=== PATIENT | female | born 2000 | race Caucasian/White ===

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

== ENCOUNTER 2020-01-11 09:53 | Emergency (ER) | payer OTHER, SELFPAY ==
--- OUTSIDE RECORDS SUMMARY | 2020-01-11 10:20 | XMS REPORT | Continuity of Care Document ---
:2000 Author Organization [facility] t Address [address] [place] [address] [address]. [address] [place] [address] Care Team Providers Name Role Phone Lavern Hammer Attending Clinician José THAYER Attending Clinician Doctor Unassigned, Name Attending Clinician Unavailable Gayle Rose DO Attending Clinician Thom THAYERMarch Attending Clinician Denise Attending Clinician Unavailable Gayle Goff Attending Clinician Unavailable Problems This patient has no known problems. Allergies, Adverse Reactions, Alerts This patient has no known allergies or adverse reactions. Medications This patient has no known medications. Procedures This patient has no known procedures. Encounters Start End Encounter Admission Attending Care Care Encounter Source Date/Time Date/Time Type Type Clinicians Facility Department ID 2020-01-10 2020-01-10 Telephone LUNA Sales [id number] 00:00:00 00:00:00 Elio Pukcett PACKERHEAD MACHINE OPERATOR [id number] [facility] 4.2.7.2.686 MATERNAL [id number] & CHILD [address] [place] [address] 2020-01-04 2020-01-04 Emergency LUNA Kumar [id number] 14:01:57 17:30:00 Raghu [place] [id number] [place] 4.2.7.2.686 [place] [id number] 2020-01-02 2020-01-02 Initial LUNA Sales [id number] 08:13:49 09:15:57 Rosstaceynda R PACKERHEAD MACHINE OPERATOR [id number] Visit REGIONAL 4.2.7.2.686 MATERNAL [id number] & CHILD 107 [facility] 2020-01-02 2020-01-02 Orders Doctor KEYA [id number] 00:00:00 00:00:00 Only Unassigned, KARISSA [id number] [place] [facility] 4.2.7.2.686 [id number] 2020-01-01 2020-01-01 Telephone [facility] [id number] 00:00:00 00:00:00 Rosstaceynda R PACKERHEAD MACHINE OPERATOR [id number] [facility] 4.2.7.2.686 MATERNAL [id number] & CHILD 107 [facility] 2019-12-29 2019-12-29 Emergency [facility] [id number] 10:37:22 12:18:00 Jazmin Callahan 350.1.13.10 [place] 4.2.7.2.686 [place] [id number] 2019-12-29 2019-12-29 Orders Doctor KEYA [id number] 00:00:00 00:00:00 Only Unassigned, KARISSA 350.1.13.10 [place] [address].686 [id number] 009 2019-11-06 2019-11-06 Telemedici [facility] [id number] 07:47:52 08:17:52 ne Visit [facility] [id number] [facility] 4.2.7.2.686 [place] AT [id number] BRANDI Linda2 [facility] 2019-09-04 2019-09-04 Orders Doctor KEYA [id number] 00:00:00 00:00:00 Only Unassigned, KARISSA 350.1.13.10 [place] [facility] 4.2.7.2.686 [id number] Results Test Description Test Time Test Comments Results Result Comments Source Urinalysis 2018-03-17 12:37:00 Test Item Value Reference Range Interpretation Comme nts Urinalysis (test code = UACLR) Yellow Yellow Urinalysis (test code = UACLY) Slightly Cloudy Clear Urinalysis (test code = SPGR) 1.015 1.005-1.030 N Urinalysis (test code = DAFNE) 8.5 5.0-9.0 N Urinalysis (test code = UALEU) Negative Negative Urinalysis (test code = UANIT) Negative Negative Urinalysis (test code = PROUADIP) Negative mg/dL Neg-Trace Urinalysis (test code = GLUCU) Negative mg/dL Negative Urinalysis (test code = KETU) Negative mg/dL Negative Urinalysis (test code = UAUROB) 0.2 mg/dL 0.2-1.0 Urinalysis (test code = UABIL) Negative Negative Urinalysis (test code = UABLD) Negative Negative Urine Source: Urine Clean CatchCulture, Strep Group A [id number] 11:02:00 Test Item Value Reference Range Interpretation Comments Culture, Strep Group A Rflx (test STRPCULT code = STRPACULT) Culture, Strep Group A Rflx (test N code = STRPACULT1) Strep Group A [id number] 00:11:00 Test Item Value Reference Range Interpretation Comments Strep Group A Screen (test code = STRPANEG1 STRP) Strep Group A Screen (test code = N STRP1) Strep Group A Screen (test code = STRPTH STRP1)
--- OUTSIDE RECORDS SUMMARY | 2020-01-11 10:20 | XMS REPORT | Summary of Care ---
:2000 Author Organization [facility] - Health Address [address] [place] [address] Care Team Providers Name Role Phone Fernanda Solorio Primary Care Provider Encounter Details Date Type Department Care Team Description 12/29/2019 Orders Only [facility] Doctor Unassigned, No 301 [facility] vard Name [place] [id number] [place] [phone] Allergies No Known Allergiesdocumented as of this encounter (statuses as of 12/29/2019) Medications No known medicationsdocumented as of this encounter (statuses as of 12/29/2019) Active Problems Not on filedocumented as of this encounter (statuses as of 12/29/2019) Social History Tobacco Use Types Packs/Day Years Used Date Never Assessed Sex Assigned at Date Recorded Not on file Job Start Date Occupation Industry Not on file Not on file Not on file Travel History Travel Start Travel End No recent travel history available. documented as of this encounter Last Filed Vital Signs Not on filedocumented in this encounter Plan of Treatment Health Maintenance Due Date Last Done Comments VARICELLA VACCINES (1 of 2 - 2-dose 2001 childhood series) MENINGOCOCCAL B VACCINES (1 of 2 - 2010 Risk Bexsero 2-dose series) DTaP,Tdap,and Td Vaccines (1 - 2011 Tdap) HPV VACCINES (1 - Female 2-dose 2011 series) WELL CARE VISIT: 12-21 YEARS 2012 (yearly) CHLAMYDIA SCREENING 2016 INFLUENZA VACCINE (#1) 2019 MENINGOCOCCAL VACCINE Aged Out No longer eligible based on patient's age to complete this topic PNEUMOCOCCAL 0-64 YEARS COMBINED Aged Out No longer eligible based on SERIES patient's age to complete this topic documented as of this encounter Procedures Procedure Name Priority Date/Time Associated Diagnosis Comme nts CONSENT/REFUSAL FOR Routine 12/29/2019 10:30 AM CDT DIAGNOSIS AND TREATMENT documented in this encounter Results Not on filedocumented in this encounter Insurance Payer Benefit Plan / Subscriber ID Effective Dates Phone Addre ss Type Group [facility] [id number] 2019-[facility] documented as of this encounter
--- OUTSIDE RECORDS SUMMARY | 2020-01-11 10:20 | XMS REPORT | Summary of Care ---
:2000 Author Organization [facility] Address [address] [place] [address] Care Team Providers Name Role Phone Fernanda Solorio Primary Care Provider Reason for Referral (Routine) Status Reason Specialty Diagnoses / Referred By Referred To Procedures Contact Contact New Request OG-OBSTETRICS & Diagnoses Vomiting, intractability of vomiting not specified, presence of nausea not specified, unspecified vomiting type Jazmin Rose GYNECOLOGY Procedures Discharge Follow-Up: Specialty Service OG-OBSTETRICS & GYNECOLOGY; 1 Week J, DO [address] [place] [address] Reason for Visit Reason Comments VOMITING DURING Auth/Cert Status Reason Specialty Diagnoses / Referred By Referred To Procedures Contact Contact Emergency Medicine Adc Em ergency Dept [address] [facility] [place] [address] Fax: Encounter Details Date Type Department Care Team Description 12/29/2019 Emergency ADC-Emergency Jazmin Rose, Vomitin g, intractability Department DO of vomiting not [address] [facility] [address] [place] [address] specified, presence of [place] [id number] [place] [address] nausea not specified, unspecified vomiting type (Jayne shima Dx) Allergies No Known Allergiesdocumented as of this encounter (statuses as of 12/29/2019) Medications Medication Sig Dispensed Refills Start Date End Date Status ondansetron (ZOFRAN Take 1 tablet by 14 tablet 0 12/29/2019 Active ODT) 4 mg mouth every 8 disintegrating (eight) hours as tabletIndications: needed for Nausea Vomiting, and Vomiting intractability of (N/V). vomiting not specified, presence of nausea not specified, unspecified vomiting type documented as of this encounter (statuses as of 12/29/2019) Active Problems No known active problemsdocumented as of this encounter (statuses as of 12/29/2019) Social History Tobacco Use Types Packs/Day Years Used Date Never Assessed Sex Assigned at Date Recorded Not on file Job Start Date Occupation Industry Not on file Not on file Not on file Travel History Travel Start Travel End No recent travel history available. COVID-19 Exposure Response Date Recorded In the last month, have you been in contact with No / Unsure 12/29/2019 10:30 AM CDT someone who was confirmed or suspected to have Coronavirus / COVID-19? documented as of this encounter Last Filed Vital Signs Vital Sign Reading Time Taken Comments Blood Pressure 115/73 12/29/2019 10:36 AM CDT Pulse 80 12/29/2019 10:36 AM CDT Temperature 37.2 C (99 F) 12/29/2019 10:36 AM CDT Respiratory Rate 18 12/29/2019 10:36 AM CDT Oxygen Saturation 99% 12/29/2019 10:36 AM CDT Inhaled Oxygen Concentration - - Weight 62.1 kg (137 lb) 12/29/2019 10:36 AM CDT Height - - Body Mass Index - - documented in this encounter Discharge Instructions Jazmin Roberts DO - 12/29/2019DIAGNOSIS 1. Vomiting 2. NO LIFE-THREATENING FINDINGS ON TODAY'S EXAM. PROCEDURES IN THE ER TODAY: Urine test MEDICATIONS ADMINISTERED IN THE ER TODAY: IV fluids Zofran YOUR PRESCRIPTIONS AND OLAN-DPH-HKORJDQ MEDICATION RECOMMENDATIONS: Zofran by mouth every 8 hours as needed for nausea/vomiting. Please take vitamins daily. SPECIAL CARE INSTRUCTIONS: None FOLLOW-UP RECOMMENDATIONS: RECOMMEND FOLLOW-UP WITH A PRIMARY CARE PROVIDER OR SPECIALIST IN 2-5 DAYS, ESPECIALLY IF NO IMPROVEMENT IN SYMPTOMS. TO FOLLOW-UP WITHIN THE [facility] HEALTHCARE SYSTEM, TRY THESE OPTIONS (CLINIC APPOINTMENTS AVAILABLE ON [id number] BASIS): 1. SCHEDULE AN APPOINTMENT ONLINE AT WWW[facility] 2. OR CALL THE [facility] ACCESS CENTER AT OR 3. OR CALL YOUR [facility] PHYSICIAN'S OFFICE DIRECTLY IF YOU ARE ALREADY AN ESTABLISHED [facility] PATIENT. OR, YOU MAY FOLLOW-UP WITH A PROVIDER OF YOUR CHOICE, SUCH : 1. A PHYSICIAN OF YOUR CHOICE 2. [facility], . LOCATIONS IN [facility] 3. [facility], [address] [place], [place]; [phone] RETURN TO ER FOR WORSENING OF SYMPTOMS. AttachmentsThe following attachments cannot be sent through Care Everywhere. Vomiting (Adult) (Nicaraguan), New Dx (Nicaraguan)Diet, Edmunds (Adult) (Nicaraguan)documented in this encounter Plan of Treatment Health Maintenance Due Date Last Done Comments VARICELLA VACCINES (1 of 2 - 2-dose 2001 childhood series) MENINGOCOCCAL B VACCINES (1 of 2 - 2010 Risk Bexsero 2-dose series) DTaP,Tdap,and Td Vaccines (1 - 2011 Tdap) HPV VACCINES (1 - Female 2-dose 2011 series) WELL CARE VISIT: 12-21 YEARS 2012 (yearly) CHLAMYDIA SCREENING 2016 INFLUENZA VACCINE (Season Ended) 2020 MENINGOCOCCAL VACCINE Aged Out No longer eligible based on patient's age to complete this topic PNEUMOCOCCAL 0-64 YEARS COMBINED Aged Out No longer eligible based on SERIES patient's age to complete this topic documented as of this encounter Procedures Procedure Name Priority Date/Time Associated Diagnosis Comme nts POCT TEST BECKY 12/29/2019 10:49 Vomiting, Resu lts for this AM CDT intractability of procedure are in vomiting not the results specified, presence of secti on. nausea not specified, unspecified vomiting type URINALYSIS STAT 12/29/2019 10:48 Vomiting, Results for this AM CDT intractability of procedure are in vomiting not the results specified, presence of secti on. nausea not specified, unspecified vomiting type NOTICE OF PRIVACY Routine 12/29/2019 10:31 PRACTICES AM CDT documented in this encounter Results POCT Test, Urine (12/29/2019 10:49 AM CDT) Pathologist Sig nature POCT PREG positive On board controls acceptable present with C Line POCT PREG LOT # [id number] POCT PREG TEST DATE 03-07-2021 Specimen Urine - URINE, CLEAN CATCH Urinalysis (12/29/2019 10:48 AM CDT) Pathologist Sig nature APPEARANCE Cloudy (A) Clear [facility] COLOR Ramandeep (A) Yellow [facility] PH 7.0 4.8 - 8.0 [facility] SP GRAVITY 1.020 1.003 - 1.030 [facility] GLU U QUAL Normal Normal [facility] BLOOD Negative Negative [facility] KETONES 5 mg/dL (A) Negative [facility] PROTEIN Negative Negative [facility] UROBILIN Normal Normal [facility] BILIRUBIN Negative Negative [facility] NITRITE Negative Negative [facility] LEUK AMANDA Negative Negative [facility] RBC/HPF 2 0 - 3 HPF [facility] WBC/HPF <1 0 - 5 HPF [facility] BACTERIA Few (A) Negative [facility] MUCOUS Marked (A) Negative LPF [facility] AMORPHOUS Moderate (A) Rare HPF [facility] SQ EPITH 3 HPF [facility] Specimen Urine - URINE, CLEAN CATCH Performing Organization Address City/State/Zipcode Phone Number [facility] CLIA: [id number], [address] [place], [place] [address] documented in this encounter Visit Diagnoses Diagnosis Vomiting, intractability of vomiting not specified, presence of nausea not specified, unspecified vomiting type - Primary documented in this encounter Administered Medications Medication Order MAR Action Action Date Dose Rate Site NaCl 0.9% (NS) bolus New Bag 12/29/2019 11:10 AM CDT 1,000 mL 99 9 mL/hr infusion 1,000 mL at 999 mL/hr, 1,000 mL, IV Infusion, ONCE, 1 dose, 12/29/19 at 1100, BECKY ondansetron (ZOFRAN (PF)) injection 4 mg Given 12/29/2019 11:09 AM CDT 4 mg 4 mg, Slow IV Push, ONCE, 1 dose, 12/29/19 at 1200, BECKY documented in this encounter Insurance Payer Benefit Plan / Subscriber ID Effective Dates Phone Addre ss Type Group [facility] [id number] 2019-Present [facility] documented as of this encounter
--- OUTSIDE RECORDS SUMMARY | 2020-01-11 10:20 | XMS REPORT | Summary of Care ---
:2000 Author Organization [facility] Address [address] [place] [address] Care Team Providers Name Role Phone Fernanda Solorio Primary Care Provider Reason for Visit Reason Comments Error (BECKY) Status Reason Specialty Diagnoses / Procedures Referred By R eferred To Contact Contact Closed Gastroenterology Diagnoses SMAS (superior mesenteric artery syndrome) Diya, Procedures CONSULT/REFERRAL GASTROENTEROLOGY MD Rae [address] [place] [phone] Encounter Details Date Type Department Care Team Description 11/06/2019 Telemedicine Visit [facility] Kana Tony, DO [address] [facility] [id number] [place] [address] ERRONEOUS GASTROENTEROLOGY Angely Tomas MD [address] [place] [address]. [place] [address] ENCOUNTER--DISREG -[facility] (Primary Dx) [address] [facility] [address] [place] [phone] Allergies No Known Allergiesdocumented as of this encounter (statuses as of 11/06/2019) Medications No known medicationsdocumented as of this encounter (statuses as of 11/06/2019) Active Problems Not on filedocumented as of this encounter (statuses as of 11/06/2019) Social History Tobacco Use Types Packs/Day Years Used Date Never Assessed Sex Assigned at Date Recorded Not on file Job Start Date Occupation Industry Not on file Not on file Not on file Travel History Travel Start Travel End No recent travel history available. documented as of this encounter Last Filed Vital Signs Not on filedocumented in this encounter Progress Notes Angely Tomas MD - 11/06/2019 11:00 AM CDTNo answer after multiple attempts to reach patient via telephone for GI telehealth visit. No voicemail set up to leave a message. Telehealth visit will need to be rescheduled. Angely Tomas MD 11/06/2019 11:02 AM documented in this encounter Plan of Treatment Health [...] this topic documented as of this encounter Results Not on filedocumented in this encounter Visit Diagnoses Diagnosis ERRONEOUS ENCOUNTER--DISREGARD - Primary documented in this encounter Insurance Payer Benefit Plan / Subscriber ID Effective Dates Phone Addre ss Type Group [facility] [id number] 2019-Present [facility] documented as of this encounter
--- OUTSIDE RECORDS SUMMARY | 2020-01-11 10:20 | XMS REPORT | Summary of Care ---
:2000 Author Organization [facility] - Health Address [address] [place] [address] Care Team Providers Name Role Phone CelestebrandyFernanda Jabari Primary Care Provider Encounter Details Date Type Department Care Team Description 01/02/2020 Orders Only [facility] Doctor Unassigned, No 301 [facility] Name [place] [phone] [place] [address] Allergies No Known Allergiesdocumented as of this encounter (statuses as of 01/02/2020) Medications Medication Sig Dispensed Refills Start Date End Date Status ondansetron (ZOFRAN Take 1 tablet by 14 tablet 0 12/29/2019 Active ODT) 4 mg mouth every 8 disintegrating (eight) hours as tabletIndications: needed for Nausea Vomiting, and Vomiting intractability of (N/V). vomiting not specified, presence of nausea not specified, unspecified vomiting type documented as of this encounter (statuses as of 01/02/2020) Active Problems No known active problemsdocumented as of this encounter (statuses as of 01/02/2020) Social History Tobacco Use Types Packs/Day Years [...] Name Priority Date/Time Associated Diagnosis Comme nts ASSIGNMENT OF BENEFITS Routine 01/02/2020 8:03 AM CDT documented in this encounter Results Not on filedocumented in this encounter Insurance Payer Benefit Plan Subscriber ID Effective Phone Address Typ e / Group Dates [facility] [id number] 2019-[facility] [place] [id number] Effective for [phone] [facility] all dates [address] [place], [place] [address] documented as of this encounter
--- OUTSIDE RECORDS SUMMARY | 2020-01-11 10:21 | XMS REPORT | Summary of Care ---
:2000 Author Organization [facility] Address [address] [place] [address] Care Team Providers Name Role Phone Fernanda Solorio Primary Care Provider Reason for Referral (Routine) Status Reason Specialty Diagnoses / Referred By Referred To Procedures Contact Contact New Request Maternal Diagnoses Superior mesenteric artery syndrome Elio Sales Medicine Procedures CONSULT/REFERRAL MATERNAL MEDICINE FACULTY/FELLOW Preferred location: KATHERINE Bishop [address] [place] [address] Reason for Visit Reason Comments Initial Visit Encounter Details Date Type Department Care Team Description [facility] upervision of high risk , antepartum (Primary Dx); Visit KATHERINE Bishop High risk teen in first trimes ter; [address] [facility] [address]ravida in first trim ter; [place], [place] Superior mesenteric artery syndrome; [address] [place], [place] Abdominal pain, left lower q uadrant; [phone] Nausea and vomiting in prior t o 22 weeks gestation [phone] Allergies No Known Allergiesdocumented as of this [...] of nausea not specified, unspecified vomiting type vit Take by mouth. 0 A ctive calc,iron,folic ( #2 ORAL) documented as of this encounter (statuses as of 01/02/2020) Active Problems Problem Noted Date Supervision of high risk , antepartum 020 High risk teen in first trimester 01/02/2020 Primigravida in first trimester 01/02/2020 Nausea and vomiting in prior to 22 weeks ges tation 01/02/2020 Superior mesenteric artery syndrome 01/02/2020 Abdominal pain, left lower quadrant 01/02/2020 Estimated Date of Delivery Comments Yes 09/18/2020 Based on last menstr ual period of 12/13/2019 (Within Days) documented as of this encounter (statuses as of 01/02/2020) Immunizations Name Administration Dates Next Due DTP 09/29/2004, 10/29/2003, 04/16/2003, 2000 HIB 3 Dose Schedule 04/16/2003, 2000 HPV 01/25/2019, 12/06/2012 Hep B, Adol or Pedi Dosage 10/29/2003, 04/16/2003, 1, 2000 MMR 09/29/2004, 04/16/2003 Meningococcal B, OMV 01/25/2019 Meningococcal Vaccine 01/25/2019, 12/06/2012 Polio (IPV/OPV) 09/29/2004, 10/29/2003, 04/16/2003, 2000 TDAP (ADACEL) VACCINE 12/06/2012 Varicella (varivax)(chicken pox) 12/06/2012, 04/16/2003 documented as of this encounter Social History Tobacco Use Types Packs/Day Years Used Date Never Smoker Smokeless Tobacco: Never Used Alcohol Use Drinks/Week oz/Week Comments Never Alcohol Habits Answer Date Recorded How often do you have a drink containing alcohol? Never 01/02/2020 How many drinks containing alcohol do you have on a typical Not asked day when you are drinking? How often do you have six or more drinks on one occasion? No t asked Estimated Date of Delivery Comments Yes 09/18/2020 Based on last menstr ual period of 12/13/2019 (Within Days) Sex Assigned at Date Recorded Not on [...] Sign Reading Time Taken Comments Blood Pressure 123/81 01/02/2020 8:26 AM CDT Pulse 75 01/02/2020 8:26 AM CDT Temperature 36.6 C (97.9 F) 01/02/2020 8:26 AM CDT Respiratory Rate 16 01/02/2020 8:26 AM CDT Oxygen Saturation - - Inhaled Oxygen Concentration - - Weight 54.4 kg (120 lb) 01/02/2020 8:26 AM CDT Height 165.1 cm (5' 5") 01/02/2020 8:26 AM CDT Body Mass Index 19.97 01/02/2020 8:26 AM CDT documented in this encounter Progress Notes Elio Sales, KATHERINE - 01/02/2020 8:00 AM CDT Chief complaint: Chief Complaint Patient presents with Initial Visit HPI CC: Initial Visit Pieter Rosas is a 19 year old, , Black or female. Patient's last menstrual period was 12/13/2019 (within days). She is 2w6d with an intrauterine . Her Estimated Dateof Delivery: 09/18/20. She is being seen today for her first obstetrical visit. She complains of nausea and vomiting, she is on Zofran given by ER. Patient report she has a medicalhistory of Superior Mesenteric Artery Syndrome, diagnosis in Aug 2019, medical records requested. Patient denies taking any medication for it. She denies FM, contractions, LOF and bleeding today. Patient denies current or past physical, sexual or emotional abuse. OB History Para Term AB Living 1 SAB TAB Ectopic Multiple Live Births # Outcome Date GA Lbr Sohan/2nd Weight Sex Delivery Anes PTL Lv 1 Current Histories OB History Para Term AB Living 1 SAB TAB Ectopic Multiple Live Births # Outcome Date GA Lbr Sohan/2nd Weight Sex Delivery Anes PTL Lv 1 Current Past Medical History: Diagnosis Date Anemia ongoing, not on medication Asthma as a child, not on medication Family History Problem Relation Age of Onset Hypertension Mother No Significant Medical Problems Father No Significant Medical Problems Sister No Significant Medical Problems Brother Hypertension Maternal Grandmother No Significant Medical Problems Paternal Grandmother No Significant Medical Problems Paternal Grandfather Arthritis NoFHx Asthma NoFHx defects NoFHx Breast Cancer NoFHx Colon Cancer NoFHx Ovarian Cancer NoFHx Uterine Cancer NoFHx Cancer NoFHx Depression NoFHx Diabetes NoFHx Genetic NoFHx Heart NoFHx High cholesterol NoFHx Mental retardation NoFHx Neurological NoFHx Osteoporosis NoFHx Psychiatry NoFHx Other - see comments NoFHx Family Status Relation Name Status Mo Alive Fa Alive Sis Alive Bro Alive MGMo Alive MGFa PGMo Alive PGFa Alive NoFHx (Not Specified) Past Surgical History: Procedure Laterality Date ARTHROTOMY,OPEN REPAIR MENISCUS rt knee at age 16 Social History Socioeconomic History Marital status: Single Spouse name: Not on file Number of children: Not on file Years of education: Not on file Highest education level: Not on file Occupational History Not on file Social Needs Financial resource strain: Not on file Food insecurity: Worry: Not on file Inability: Not on file Transportation needs: Medical: Not on file Non-medical: Not on file Tobacco Use Smoking status: Never Smoker Smokeless tobacco: Never Used Substance and Sexual Activity Alcohol use: Never Frequency: Never Drug use: Never Sexual activity: Yes Partners: Male control/protection: None Comment: last sexual intercourse: 12/21/2019 Lifestyle Physical activity: Days per week: Not on file Minutes per session: Not on file Stress: Not on file Relationships Social connections: Talks on phone: Not on file Gets together: Not on file Attends synagogue service: Not on file Active member of club or organization: Not on file Attends meetings of clubs or organizations: Not on file Relationship status: Not on file Intimate partner violence: Fear of current or ex partner: Not on file Emotionally abused: Not on file Physically abused: Not on file Forced sexual activity: Not on file Other Topics Concern Not on file Social History Narrative Patient lives with mother. Religous preference: Alevism. One inside dog. Social History Substance and Sexual Activity Sexual Activity Yes Partners: Male control/protection: None Comment: last sexual intercourse: 12/21/2019 Genetic Screen Autism / Mental Retardation: No Armando Disease: No Congenital Heart Defect: No Cystic Fibrosis: No Down Syndrome: No Familial Dysautonomia: No Hemophilia or other Blood Disorders: No [place] Chorea: No Maternal Metabolic Disorder--specify (eg. Type 1 Diabetes, PKU): No Muscular Dystrophy: No Neural Tube Defect: No Recurrent Loss or a Stillbirth: No Sickle Cell Disease or Trait: No Noel Sachs: No Teratological Substances (specify type & strength/dose) since LMP: No Thalassemia: No Other Inherited Genetic or Chromosomal Disorder (specify): No No Significant History of Genetic Disorders: No Significant History of Genetic Disorders Labs Labs are pending. Radiology No new radiology. Allergies Pieter has No Known Allergies. Medications Pieter has a current medication list which includes the following prescription(s): vit calc,iron,folic and ondansetron. Review of Systems Constitutional: Negative for activity change, appetite change, fatigue, unexpected weight change, weight gain and weight loss. HENT: Negative for sore throat. Eyes: Negative for visual disturbance. Respiratory: Negative for cough and shortness of breath. Breasts: Negative for discharge, mass, pain and unequal size. Cardiovascular: Negative for chest pain, palpitations and leg swelling. Gastrointestinal: Positive for abdominal pain, nausea and vomiting. Negative for anal bleeding, blood in stool, constipation, diarrhea and rectal pain. Genitourinary: Negative for bladder incontinence, dysuria, urgency, flank pain, vaginal bleeding, vaginal discharge, genital sores, vaginal pain and pelvic pain. Skin: Negative for color change and rash. Neurological: Negative. Negative for dizziness, syncope and headaches. Psychiatric/Behavioral: Negative for confusion, self-injury and sleep disturbance. The patient is not nervous/anxious. Hematological: Negative for cold intolerance and heat intolerance. Endocrine: Negative for hair loss, cold intolerance, heat intolerance, weight gain and weight loss. BP 123/81 (BP Location: Right arm, Patient Position: Sitting, BP CUFF SIZE: Adult Medium) | Pulse 75 | Temp 36.6 C (97.9 F) (Oral) | Resp 16 | Ht 5' 5" (1.651 m) | Wt 120 lb (54.4 kg) | LMP 12/13/2019 (Within Days) | BMI 19.97 kg/m Pregravid BMI: 19.0 Physical Exam Vitals reviewed. Constitutional: She is oriented to person, place, and time. She appears well- developed, well-nourished and well-groomed. She has no deformities. Neck: No tenderness and no mass. No thyroid nodules and no thyromegaly palpated. Cardiovascular: Regular rate and rhythm. No murmur auscultated. Pulmonary/Chest: Breath sounds clear to auscultation. Normal inspiratory effort. Abdominal: Abdomen is soft. No mass palpated. No tenderness present. There is no guarding. Neuro/Psychiatric: She has a normal mood and affect. She is oriented to person, place, and time. Skin: Skin normal. No lesion and no rash present. Breast: Right breast exhibits no mass, no nipple discharge and no tenderness. Left breast exhibits no mass, no nipple discharge and no tenderness. Normal left breast and normal right breast Rectal: normal rectum External genitalia: Normal external genitalia appropriate for age. Normal hair distribution. No labial lesion. Warehouse Logistics Manager present for the exam: Cristina Croft RN Vagina:Normal vagina. No lesion inspected. No abnormal vaginal discharge found. Cervix: Normal cervix. No lesion. No tenderness and no discharge present. Closed/50/-3 Uterus: Uterus is normal size and non-tender. 6cm Normal uterus Adnexa: Right adnexa without tenderness or mass. Left adnexa without tenderness or mass. Normal leftadnexa and normal right adnexa Anus/perineum: Normal perineum. PHYSICAL: General Exam: HEENT: Normal Thyroid: Normal Lymph Node: Normal Neurological: Normal Abdomen: Normal Skin: Normal Extremities: Normal Pelvic Exam: Vulva: Normal Vagina: Normal Warehouse Logistics Manager present for the exam: Cristina Croft RN Cervix: Normal Closed/50/-3 Uterus: 6cm Weeks Adnexa: Normal Spines: Average Sacrum: Concave Subpubic Arch: Normal Assessment/Plan Supervision of high risk , antepartum (primary encounter diagnosis) High risk teen in first trimester Primigravida in first trimester Comment: Routine NOB appointment Plan: POCT TEST, POCT URINALYSIS W/O SPECIFIC GRAVITY, GC & CHLAMYDIA AMPLIFIED ASSAY, CBC WITH DIFF, HEPATITIS B SURFACE ANTIGEN, HIV 1/2 AG-AB WITH REFLEX, POCT URINALYSIS W SPECIFIC GRAVITY, WORKUP, BLOOD BANK, RUBELLA SCREEN (MONTSE) IGG, GALV ONLY - SYPHILIS IGG/IGM, URINE CULTURE, VZV ANTIBODY SCREEN, VZV ANTIBODY SCREEN, URINE CULTURE, GALV ONLY - SYPHILIS IGG/IGM, RUBELLA SCREEN (MONTSE) IGG, HIV 1/2 AG-AB WITH REFLEX, HEPATITIS B SURFACE ANTIGEN, CBC WITH DIFF, GC & CHLAMYDIA AMPLIFIED ASSAY, WORKUP, BLOOD BANK, CBC WITH DIFFERENTIAL Denies zika virus risk, signs and symptoms such as fever,rash,joint pain, conjunctivitis (red eyes), muscle pain, headaches; outside [place] travel to areas affected by zika, and FOB exposure to zika.Educated on use of mosquito repellent. Superior mesenteric artery syndrome Abdominal pain, left lower quadrant Comment: See HPI Plan: CONSULT/REFERRAL MATERNAL MEDICINE FACULTY/FELLOW Preferred location: [place] Nausea and vomiting in prior to 22 weeks gestation Comment: see HPI, on medication Plan: will assess as needed Return to clinic in 4 weeks with MFM. Discussed treatment options. Medications as ordered. Reviewed patient instructions and provided printed copy. This visit did not involve counseling and coordination that comprised more than 50% of the visit time. KATHERINE Goncalves 01/02/2020 9:18 AM Cristina Croft RN - 01/02/2020 8:00 AM CDTPatient is 19 year old female here for current . Patient is . 1) Previous delivery methods: initial 2) Patient is not experiencing cramping 3) Patient is not experiencing bleeding. 4) LMP: 11/14/2019 5) Last Pap was: n/a Results: N/a 6) Have you had a flu vaccine this season? no 7) PPD candidate? no 8) Patient complains of nausea and pain to the left lower abdominal area. 9) Patient denies history of physical, emotional, or sexual abuse. Patient states she currently feels safe at home. NOB packet given and reviewed with patient. documented in this encounter Plan of Treatment Date Type Specialty Care Team Description 01/30/2020 Routine Visit [facility] Satellites Henrry, Lavern osmaikol R, ELECTRONIC GAME DEVELOPER [address] [place], [place] [address] [phone] Name Type Priority Associated Diagnoses Date/Ti me GC & CHLAMYDIA AMPLIFIED LAB Routine Supervision of h igh risk 01/02/2020 9:18 AM ASSAY , antepartum CDT CBC WITH DIFF LAB Routine Supervision of high risk 9:18 AM , antepartum CDT HEPATITIS B SURFACE LAB Routine Supervision of high r isk 01/02/2020 9:18 AM ANTIGEN , antepartum CDT HIV 1/2 AG-AB WITH REFLEX LAB Routine Supervision of high risk 01/02/2020 9:18 AM , antepartum CDT RUBELLA SCREEN (MONTSE) LAB Routine Supervision of [facility] h risk 01/02/2020 9:18 AM IGG , antepartum CDT GALV ONLY - SYPHILIS LAB Routine Supervision of high risk 01/02/2020 9:18 AM IGG/IGM , antepartum CDT URINE CULTURE LAB Routine Supervision of high risk 9:18 AM , antepartum CDT VZV ANTIBODY SCREEN LAB Routine Supervision of high r isk 01/02/2020 9:18 AM , antepartum CDT CBC WITH DIFFERENTIAL LAB Routine Supervision of high risk 01/02/2020 9:18 AM , antepartum CDT Name Type Priority Associated Diagnoses Order S chedule GC & CHLAMYDIA LAB Routine Supervision of high risk E xpected: 01/02/2020, AMPLIFIED ASSAY , antepartum Exp ires: 01/01/2021 CBC WITH DIFF LAB Routine Supervision of high risk Ex pected: 01/02/2020, , antepartum s: 01/01/2021 HEPATITIS B SURFACE LAB Routine Supervision of high r isk Expected: 01/02/2020, ANTIGEN , antepartum s: 01/01/2021 HIV 1/2 AG-AB WITH LAB Routine Supervision of high ri sk Expected: 01/02/2020, REFLEX , antepartum s: 01/01/2021 POCT URINALYSIS W LAB Routine Supervision of high ris k 20 Occurrences starting SPECIFIC GRAVITY , antepartum until 10/28/2020 WORKUP, BLOOD LAB Routine Supervision of hig h risk Expected: 01/02/2020, BANK , antepartum s: 01/01/2021 RUBELLA SCREEN ([facility]SE) LAB Routine Supervision of hig h risk Expected: 01/02/2020, IGG , antepartum s: 01/01/2021 GALV ONLY - SYPHILIS LAB Routine Supervision of high risk Expected: 01/02/2020, IGG/IGM , antepartum s: 01/01/2021 URINE CULTURE LAB Routine Supervision of high risk Ex pected: 01/02/2020, , antepartum s: 01/01/2021 VZV ANTIBODY SCREEN LAB Routine Supervision of high r isk Expected: 01/02/2020, , antepartum s: 01/01/2021 Health Maintenance Due Date Last Done Comments INFLUENZA VACCINE (Season 04/08/2020 Ended) CHLAMYDIA SCREENING 01/01/2021 01/02/2020 MENINGOCOCCAL B VACCINES (2 01/01/2021 01/25/2019 Post poned from of 2 - Risk Bexsero 2-dose 02/22 ( or series) ) WELL CARE VISIT: 12-01/01/2021 01/02/2020 YEARS (yearly) DTaP,Tdap,and Td Vaccines 12/06/2022 12/06/2012, 09/29/2004 , (6 - Td) 10/29/2003, Additional history exists VARICELLA VACCINES Completed 12/06/2012, 04/16/2003 HPV VACCINES Completed 01/25/2019, 12/06/2012 MENINGOCOCCAL VACCINE Aged Out 01/25/2019, 12/06/2012 No longer eligible based on patient 's age to complete this topic PNEUMOCOCCAL 0-64 YEARS Aged Out No longe r eligible COMBINED SERIES based on patient 's age to complete this topic documented as of this encounter Procedures Procedure Name Priority Date/Time Associated Diagnosis Comme nts POCT URINALYSIS W/O Routine 01/02/2020 8:28 Supervision of hi gh Results for this SPECIFIC GRAVITY AM CDT risk , procedur e are in antepartum the results section. POCT TEST Routine 01/02/2020 8:28 Supervision of hi gh Results for this AM CDT risk , procedure ar e in antepartum the results section. documented in this encounter Results POCT URINALYSIS W/O SPECIFIC GRAVITY (01/02/2020 8:28 AM CDT) Pathologist Sig nature POCT PH U 6 5 - 8 mg/dl POCT U LEUK EST neg Negative - Negative POCT U NIT neg Negative - Negative POCT U PROT trace Negative - Negative POCT U GLU neg Negative - Negative POCT U KETONE neg Negative - Negative POCT U BLD neg Negative - Negative Specimen Urine - URINE, CLEAN CATCH POCT TEST (01/02/2020 8:28 AM CDT) Pathologist Sig nature POCT PREG Positive On board controls acceptable Yes with C Line POCT PREG LOT # POCT PREG TEST DATE Specimen Urine - URINE, CLEAN CATCH documented in this encounter Visit Diagnoses Diagnosis Supervision of high risk , ante - Primary High risk teen in first trimes ter Primigravida in first trimester Superior mesenteric artery syndrome Chronic vascular insufficiency of intest ine Abdominal pain, left lower quadrant Nausea and vomiting in prior t o 22 weeks gestation Mild hyperemesis gravidarum, unspecified as to episode of care documented in this encounter Insurance Payer Benefit Plan / Subscriber ID Effective Phone Address T ype Group Dates MEDICAID MEDICAID PENDING 2019-[address] [address] documented as of this encounter Advance Directives Name Relationship Healthcare Agent Communication Relationship Charlotte Rosas Mother Primary healthcare agent
--- OUTSIDE RECORDS SUMMARY | 2020-01-11 10:21 | XMS REPORT | Summary of Care ---
:2000 Author Organization [facility] Address [address] [place] [address] Care Team Providers Name Role Phone Fernanda Solorio Primary Care Provider Reason for Visit Reason Comments Appointment Encounter Details Date Type Department Care Team Description 01/01/2020 Telephone [facility]- A Elio Parikh, KATHERINE Appointment [address] [facility] [address] [place] [address] [place] [address] [phone] Allergies No Known Allergiesdocumented as of this [...] 01/02/2020 Abdominal pain, left lower quadrant 01/02/2020 documented as of this encounter (statuses as [...] filedocumented in this encounter Plan of Treatment Date Type Specialty Care Team Description 01/30/2020 Routine Visit OB Satellites Lavern Sales, SPECIALIZED LANGUAGE INSTRUCTOR [address] [place] [address] [phone] Health Maintenance Due Date Last Done Comments [...] Phone Address Typ e / Group Dates MEDICAID MEDICAID PENDING 2019-[address] [place] [address] [facility] [id number] 2019-[facility] [place] [id number] Effective for [facility] all dates [address] [id number] documented as of this encounter Advance Directives Name Relationship Healthcare Agent Communication Relationship Charlotte Rosas Mother Primary healthcare agent
--- OUTSIDE RECORDS SUMMARY | 2020-01-11 10:22 | XMS REPORT | Summary of Care ---
:2000 Author Organization [facility] - [facility] Address [address] [place] [address] Care Team Providers Name Role Phone Fernanda Solorio Primary Care Provider Reason for Referral Radiology Services (STAT) Status Reason Specialty Diagnoses / Referred By Referred To Procedures Contact Contact New Request Diagnostic Diagnoses Left lower quadrant abdominal pain Raghu Kumar, Radiology Procedures US TRANSVAGINAL [address] [facility] [address] [place] [address] Reason for Visit Reason Comments Abdominal Pain Auth/Cert Status Reason Specialty Diagnoses / Referred By Referred To Procedures Contact Contact Emergency Medicine Adc Em ergency Dept [address] [facility] [place] [address] Fax: Encounter Details Date Type Department Care Team Description 01/04/2020 Emergency ADC-Emergency Raghu Kumar MD Left lower quadrant Department [address] [facility] abdominal pain [address] [facility] [address] (Primary Dx) [place] [address] [place] [address] [phone] Allergies No Known Allergiesdocumented as of this encounter (statuses as of 01/04/2020) Medications Medication Sig Dispensed Refills Start Date [...] as of this encounter (statuses as of 01/04/2020) Active Problems Problem Noted Date Maternal varicella, non-immune 01/03/2020 Overview: Address in Supervision of high risk , antepartum 020 [...] as of this encounter (statuses as of 01/04/2020) Immunizations Name Administration Dates Next Due DTP [...] been in contact with No / Unsure 01/04/2020 1:50 PM CDT someone who was confirmed or suspected to have Coronavirus / COVID-19? documented as of this encounter Last Filed Vital Signs Vital Sign Reading Time Taken Comments Blood Pressure 118/72 01/04/2020 5:00 PM CDT Pulse 70 01/04/2020 5:00 PM CDT Temperature 37.4 C (99.3 F) 01/04/2020 1:59 PM CDT Respiratory Rate 20 01/04/2020 5:00 PM CDT Oxygen Saturation 99% 01/04/2020 5:00 PM CDT Inhaled Oxygen Concentration - - Weight 63.5 kg (140 lb) 01/04/2020 1:59 PM CDT Height 175.3 cm (5' 9") 01/04/2020 1:59 PM CDT Body Mass Index 20.67 01/04/2020 1:59 PM CDT documented in this encounter Plan of Treatment Date Type Specialty Care Team Description 01/14/2020 Routine Visit [facility] Satellites Greg, Cecil campos gianluca 01/30/2020 Routine Visit [facility] Satellites Lavern Sales, IT SERVICE DELIVERY MANAGER [address] [id number] 15 [phone] Name Type Priority Associated Diagnoses Date/Ti me US TRANSVAGINAL IMAGING STAT Left lower quadrant 01/03 5:23 PM CDT abdominal pain Name Type Priority Associated Diagnoses Order S chedule US TRANSVAGINAL IMAGING STAT Left lower quadrant ONCE for 1 Occurrences abdominal pain starting 12/07 until 01/04/2020 Health Maintenance Due Date Last Done Comments Depression Screening 2012 INFLUENZA VACCINE (Season 04/08/2020 Ended) CHLAMYDIA SCREENING 01/01/2021 01/02/2020 MENINGOCOCCAL B VACCINES (2 01/01/2021 01/25/2019 Post poned from of 2 - Risk Bexsero 2-dose 02/22 ( or series) ) WELL CARE VISIT: 12-21 01/01/2021 01/02/2020 YEARS (yearly) DTaP,Tdap,and Td Vaccines 12/06/2022 [...] encounter Procedures Procedure Name Priority Date/Time Associated Comments Diagnosis URINALYSIS STAT 01/04/2020 4:12 Left lower quadrant Resu lts for this PM CDT abdominal pain procedure are in the results section. CBC WITH DIFFERENTIAL STAT 01/04/2020 2:57 Left lower quad rant Results for this PM CDT abdominal pain procedure are in the results section. ACTIVATED PARTIAL STAT 01/04/2020 2:57 Left lower quadrant Results for this THRMPLAS DIEGO PM CDT abdominal pain procedure are in the results section. PROTHROMBIN TIME / STAT 01/04/2020 2:57 Left lower quadran t Results for this INR PM CDT abdominal pain procedure are in the results section. CBC WITH DIFFERENTIAL Routine 01/04/2020 2:57 Left lower quad rant Results for this PM CDT abdominal pain procedure are in the results section. TOTAL BETA HCG ASSAY STAT 01/04/2020 2:57 Left lower quadr ant Results for this PM CDT abdominal pain procedure are in the results section. BASIC METABOLIC PANEL STAT 01/04/2020 2:57 Left lower quad rant Results for this (NA, K, CL, CO2, PM CDT abdominal pain procedure are in GLUCOSE, BUN, the results CREATININE, CA) section. HEPATIC FUNCTION STAT 01/04/2020 2:57 Left lower quadrant Results for this PANEL (02430) PM CDT abdominal pain procedure ar e in (ALB,T.PRO,BILI the results T,BU/BC,ALT,AST,ALK section. PHOS) TEST, SERUM STAT 01/04/2020 2:57 Left lower quad rant Results for this PM CDT abdominal pain procedure are in the results section. CONSENT/REFUSAL FOR Routine 01/04/2020 1:50 DIAGNOSIS AND PM CDT TREATMENT documented in this encounter Results Urinalysis (01/04/2020 4:12 PM CDT) Pathologist Sig nature APPEARANCE Clear Clear [facility] COLOR Straw (A) Yellow [facility] PH 6.0 4.8 - 8.0 [facility] SP GRAVITY 1.006 1.003 - 1.030 [facility] GLU U QUAL Normal Normal [facility] BLOOD Negative Negative [facility] KETONES 20 mg/dL (A) Negative [facility] PROTEIN Negative Negative [facility] UROBILIN Normal Normal [facility] BILIRUBIN Negative Negative [facility] NITRITE Negative Negative [facility] LEUK AMANDA Negative Negative [facility] RBC/HPF <1 0 - 3 HPF [facility] WBC/HPF <1 0 - 5 HPF [facility] BACTERIA Few (A) Negative [facility] SQ EPITH 1 HPF [facility] Specimen Urine - URINE, CLEAN CATCH Performing Organization Address City/State/Zipcode Phone Number [facility] CLIA: [id number], [address] [place], [place] [address] CBC WITH DIFFERENTIAL (01/04/2020 2:57 PM CDT) Pathologist Sig nature WBC 14.79 (H) 4.30 - 11.10 [facility] 10*3/L [facility] RBC 5.18 3.93 - 5.25 [facility] 10*6/L [facility] HGB 13.4 11.6 - 15.0 [facility] g/dL [facility] HCT 41.4 35.7 - 45.2 % [facility] MCV 79.9 (L) 80.6 - 95.5 fL [facility] MCH 25.9 25.9 - 32.8 pg [facility] MCHC 32.4 31.6 - 35.1 [facility] g/dL [facility] RDW-SD 43.8 39.0 - 49.9 fL [facility] RDW-CV 15.1 12.0 - 15.5 % [facility] PLT 303 166 - 358 [facility] 10*3/L [facility] MPV 11.4 9.5 - 12.9 fL [facility] NRBC/100 WBC 0.0 0.0 - 10.0 /100 [facility] WBCs [facility] NRBC x10^3 <0.01 10*3/L [facility] GRAN MAT (NEUT) % 80.9 % [facility] IMM GRAN % 0.50 % [facility] LYMPH % 12.3 % [facility] MONO % 5.5 % [facility] EOS % 0.5 % [facility] BASO % 0.3 % [facility] GRAN MAT x10^3(ANC) 11.96 (H) 1.88 - 7.09 [facility] 10*3/uL [facility] IMM GRAN x10^3 0.07 (H) 0.00 - 0.06 [facility] 10*3/uL [facility] LYMPH x10^3 1.82 1.32 - 3.29 [facility] 10*3/uL [facility] MONO x10^3 0.81 0.33 - 0.92 [facility] 10*3/uL [facility] EOS x10^3 0.08 0.03 - 0.39 [facility] 10*3/uL [facility] BASO x10^3 0.05 0.01 - 0.07 [facility] 10*3/uL [facility] Specimen Blood - VENOUS Performing Organization Address City/State/Zipcode Phone Number [facility] CLIA: [id number], [address] [place], [place] [address] TOTAL BETA HCG ASSAY (01/04/2020 2:57 PM CDT) Pathologist [facility] nature BETA HCG 145,780.00 Non- female [facility] and male patients: HOSPITAL LABORATORY <5 mIU/mL Specimen Blood - VENOUS Narrative Performed At [facility] Gestational Age Range (mIU/mL) 1-10 Weeks [phone] [phone] 11-15 Weeks [id number] 16-22 Weeks [id number] 23-40 Weeks [id number] Biotin has been reported to cause a negative bias, interpret results relative to patient's use of biotin. Performing Organization Address City/State/Zipcode Phone Number [facility] CLIA: [id number], [address] [place] [address] Prothrombin Time (PT) / INR (01/04/2020 2:57 PM CDT) PROTIME PATIENT 13.1 12.0 - 14.7 [facility] LABORATORY INR 1.0Comment: Normal [facility] INR <1.1; Warfarin [facility] Therapeutic range LABORATORY 2.0 to 3.0 or 2.5 to 3.5, depending upon the indications. Specimen Blood - VENOUS Performing Organization Address [facility] Phone Number [facility] CLIA: [id number], [address] [place] [place] [address] aPTT (01/04/2020 2:57 PM CDT) Pathologist Sig nature APTT Patient 30 23 - 38 Seconds [facility] Specimen Blood - VENOUS Narrative Performed At The [facility] patient population mean normal value [facility] for aPTT is 30 seconds. Performing Organization Address [facility] Phone Number [facility] CLIA: [id number], [address] [place] [address] Hepatic Function Panel (ALB, T.PRO, BILI T, BU/BC, ALT, AST, ALK PHOS) (01/04/2020 2:57 PM CDT) Pathologist Sig nature TOTAL BILI 0.9 0.1 - 1.1 mg/dL [facility] BILI UNCON 1.1 0.1 - 1.1 mg/dL [facility] BILI CONJ 0.0 0.0 - 0.3 mg/dL [facility] T PROTEIN 8.6 (H) 6.3 - 8.2 g/dL [facility] ALBUMIN 5.1 (H) 3.5 - 5.0 g/dL [facility] ALK PHOS 45 34 - 122 U/L [facility] ALTv 16 5 - 35 U/L [facility] AST(SGOT) 43 (H) 13 - 40 U/L [facility] Specimen Blood - VENOUS Performing Organization Address City/State/Zipcode Phone Number [facility] DASH: [id number], [address] [place] [address] Basic Metabolic Panel (NA, K, CL, CO2, GLUCOSE, BUN, CREATININE, CA) (01/04/2020 2:57 PM CDT) [facility] NA 137 135 - 145 [facility] mmol/L [facility] K 4.1 3.5 - 5.0 [facility] mmol/L [facility] CL 103 98 - 108 mmol/L [facility] CO2 TOTAL 22 (L) 23 - 31 mmol/L [facility] AGAP 12 2 - 16 [facility] BUN 8 7 - 23 mg/dL [facility] GLUCOSE 84 70 - 110 mg/dL [facility] CREATININE 0.54 0.50 - 1.04 [facility] mg/dL [facility] CALCIUM 10.4 8.6 - 10.6 [facility] mg/dL [facility] eGFR Calculation 145.4 mL/min/1.73m2 [facility] (Non-) [facility] LABORATOR Y eGFR Calculation 176.3 mL/min/1.73m2 [facility] () [facility] Specimen Blood - VENOUS Narrative Performed At Association of Glomerular Filtration Rate (GFR) [facility] and Staging of Kidney Disease* + + +- + | GFR (mL/min/1.73 m2) | With Kidney Damage | Without Kidney Damage + + +- + | >90 | Stage one | Normal + + +- + | 60-89 | Stage two | Decreased GFR + + +- + | 30-59 | Stage three | Stage three + + +- + | 15-29 | Stage four | Stage four + + +- + | <15 (or dialysis) | Stage five | Stage five + + +- + *Each stage assumes the associated GFR level has been in effect for at least three months. Stages 1 to 5, with or without kidney disease, indicate chronic kidney disease. Notes: Determination of stages one and two (with eGFR >59mL/min/1.73 m2) requires estimation of kidney damage for at least three months as defined by structural or functional abnormalities of the kidney, manifested by either: Pathological abnormalities or Markers of kidney damage (including abnormalities in the composition of the blood or urine or abnormalities in imaging tests). Performing Organization Address City/State/Zipcode Phone Number [facility] CLIA: [id number], [address] [place], [place] [address] Test, Serum (01/04/2020 2:57 PM CDT) Pathologist Sig nature PREG SERUM Positive [facility] Specimen Blood - VENOUS Narrative Performed At Positive greater than or equal to 10 IU/L hCG. [facility] Performing Organization Address City/State/Zipcode Phone Number [facility] CLIA: [id number], [address] [place], [place] [address] documented in this encounter Visit Diagnoses Diagnosis Left lower quadrant abdominal pain - Jayne shima documented in this encounter Insurance Payer Benefit Plan Subscriber ID Effective Phone Address Typ e / Group Dates [employer] [place] [id number] Effective for [facility] I H C I H C all dates [address] [place] [address] MEDICAID MEDICAID PENDING 2019-[address] [place] [address] documented as of this encounter Advance Directives Name Relationship Healthcare Agent Communication Relationship Crystal Ralph Mother Primary healthcare agent
--- OUTSIDE RECORDS SUMMARY | 2020-01-11 10:23 | XMS REPORT | Summary of Care ---
:2000 Author Organization [facility] Address [address] [place] [address] Care Team Providers Name Role Phone ElmokareybrandyFernanda Jabari Primary Care Provider Reason for Visit Reason Comments Refill Request ondansetron (ZOFRAN ODT) 4 m g disintegrating tablet Encounter Details Date Type Department Care Team Description 01/10/2020 Telephone [facility] RMMaria Esther- Elio Sales, Re fill Request [place] [employer] LIBRARY CLERK (ondansetron (ZOFRAN [address]) [address] tablet) [place], [place] [id number] Allergies No Known Allergiesdocumented as of this encounter (statuses as of 01/10/2020) Medications Medication Sig Dispensed Refills Start Date [...] as of this encounter (statuses as of 01/10/2020) Active Problems Problem Noted Date Maternal varicella, [...] as of this encounter (statuses as of 01/10/2020) Immunizations Name Administration Dates Next Due DTP [...] Team Description 01/14/2020 Routine Visit [facility]ellites Faculty, Cecil Abarca p Mfm 01/30/2020 Routine Visit OB Satellites Lavern Sales, TALKING BOOKS LIBRARY CLERK [address] [facility] Andre david [place], [place] [address] [phone] Health Maintenance Due Date Last Done Comments Depression Screening 2012 INFLUENZA VACCINE (Season 04/08/2020 Ended) CHLAMYDIA SCREENING 01/01/2021 01/02/2020, 01/02/2020 MENINGOCOCCAL B VACCINES (2 01/01/2021 01/25/2019 Post poned from of 2 - Risk Bexsero 2-dose 02/22 ( or series) ) WELL CARE VISIT: -01/01/2021 01/02/2020 YEARS (yearly) DTaP,Tdap,and Td Vaccines 12/06/2022 [...] e / Group Dates MEDICAID MEDICAID PENDING 2019-[address]ending [address]ENDING PENDING [address] [place] [phone] [facility] [id number] 2019-[facility] [id number] Effective for [facility] [place] [facility] all [place] [address] [place] [address] SWEENY COMM SWEENY COMM [id number] 2020-Pres [address] [facility] ent ROBER SAMUELS, [place] documented as of this encounter Advance Directives Name Relationship Healthcare Agent Communication Relationship Charlotte Rosas Mother Primary healthcare agent
[2020-01-11 11:02] LABS: Absolute Lymphocytes (CBC) 1.6 K/uL (0.7-4.9); Basophils % 0.4 % (0-1.3); Hematocrit 37.3 % (36.0-45.0); Lymphocytes % 14.4 % (15.3-44.8); RBC Red Blood Cell Count 4.73 M/uL (3.86-4.86)
[2020-01-11] MEDS ORDERED: METOCLOPRAMIDE 10 MG/2mL INJ ONE (11:06)
[2020-01-11] MEDS ORDERED: NA CHLORIDE 0.9% 1,000 ML ONE (11:06)
[2020-01-11] MEDS ORDERED: PROMETHAZINE INJ 25 MG/ML AMP ONE (11:06)
[2020-01-11 11:13] LABS: ALT/SGPT 21 U/L (12-78); AST/SGOT 15 U/L (15-37); Albumin 3.7 g/dL (3.4-5.0); Alkaline Phosphatase 36 U/L (45-117); BUN Blood Urea Nitrogen 9 mg/dL (7-18); Bicarbonate 22 mmol/L (21-32); Bilirubin Direct 0.2 mg/dL (0-0.2); Bilirubin Total 0.8 mg/dL (0.2-1.0); Glucose Level 89 mg/dL (74-106); Lipase 62 U/L (73-393); Potassium 3.6 mmol/L (3.5-5.1); Protein, Total 7.5 g/dL (6.4-8.2); Sodium Level 136 mmol/L (136-145)
[2020-01-11 12:28] LABS: Urine Blood NEGATIVE (NEG); Urine Glucose NEGATIVE (NEG); Urine Protein NEGATIVE (NEG); Urine pH 7.5 (5.0-7.0)
--- NOTE | 2020-01-11 12:33 | EDPHYS ---
Physician Documentation [facility] Name: Pieter Rosas Age: 19 yrs Sex: Female : 2000 Arrival Date: 01/11/2020 Time: 09:57 Bed 20 Private MD: ED Physician Florentin Caldwell HPI: 01/10 10:27 This 19 yrs old Female presents to ER via Ambulatory with complaints of 8 wks jmm , Vomiting. 10:27 The patient presents to the emergency department with nausea, vomiting. Possible jmm causes: . The symptoms are aggravated by nothing. The symptoms are alleviated by nothing. This is a 19 year old female currently 8 weeks that presents to the ED with complaints of vomiting. This has been ongoing throughout the . 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 Patient currently is not taking medication at home for vomiting. . 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 - Social history:: Smoking status: Patient denies any tobacco usage or history of. ROS: 10:27 Constitutional: Negative for fever, chills, and weight loss, Cardiovascular: Negative jmm for chest pain, palpitations, and edema, Respiratory: Negative for shortness of breath, cough, wheezing, and pleuritic chest pain. 10:27 Abdomen/GI: Positive for vomiting. 10:27 All other systems are negative. Exam: 10:27 Constitutional: This is a well developed, well nourished patient who is awake, alert, jmm and in no acute distress. Head/Face: atraumatic. Eyes: EOMI, no conjunctival erythema appreciated ENT: Moist Mucus Membranes Neck: Trachea midline, Supple Chest/axilla: Normal chest wall appearance and motion. Cardiovascular: Regular rate and rhythm. No edema appreciated Respiratory: Normal respirations, no respiratory distress appreciated Abdomen/GI: Non distended, soft Back: Normal ROM Skin: General appearance color normal MS/ Extremity: Moves all extremities, no obvious deformities appreciated, no edema noted to the lower extremities Neuro: Awake and alert, normal gait Psych: Behavior is normal, Mood is normal, Patient is cooperative and pleasant Vital Signs: 10:06 BP 119 / 78; Pulse 81; Resp 16; Temp 97.8; Pulse Ox 100% ; Weight 62.14 kg; Height 5 hb ft. 5 in. (165.10 cm); Pain 0/10; 11:00 BP 110 / 90; Pulse 67; Resp 16; Pulse Ox 100% ; ah 12:00 BP 101 / 66; Pulse 57; Resp 16; Pulse Ox 100% ; ah 10:06 Body Mass Index 22.80 (62.14 kg, 165.10 cm) hb MDM: 10:20 Patient medically screened. [facility] 12:31 Data reviewed: vital signs, nurses notes. Counseling: I had a detailed discussion with [facility] the patient and/or guardian regarding: the historical points, exam findings, and any diagnostic results supporting the discharge/admit diagnosis, lab results, the need for outpatient follow up, to return to the emergency department if symptoms worsen or persist or if there are any questions or concerns that arise at home. ED course: Patient is alert and non toxic in appearance in the ED. Patient is advised to return to the ED if she develops abdominal pain, vomiting, or any other concerning symptoms. patient understood and agrees with the plan of care. . 01/10 10:26 Order name: Basic Metabolic Panel; Complete Time: 11:55 [facility] 01/10 10:26 Order name: CBC with Diff; Complete Time: 11:55 [facility] 01/10 10:26 Order name: Hepatic Function; Complete Time: 11:55 [facility] 01/10 10:26 Order name: Lipase; Complete Time: 11: [facility] 01/10 10:35 Order name: Urine Dipstick--Ancillary (enter results); Complete Time: 12:30 01/10 10:35 Order name: Urine --Ancillary (enter results); Complete Time: 12:30 01/10 10:15 Order name: Urine Dipstick-Ancillary (obtain specimen); Complete Time: 10:27 [facility] 01/10 10:15 Order name: Urine Test (obtain specimen); Complete Time: 10:27 [facility] 01/10 10:26 Order name: IV Saline Lock; Complete Time: 10:53 [facility] 01/10 10:26 Order name: Labs collected and sent; Complete Time: 10:54 [facility] Administered Medications: 11:01 Drug: Reglan 10 mg Route: IVP; Site: left antecubital; hb 13:12 Follow up: Response: No adverse reaction 11:01 Drug: diphenhydrAMINE 12.5 mg Route: IVP; Site: left antecubital; hb 13:11 Follow up: Response: No adverse reaction 11:02 Drug: NS 0.9% 1000 ml Route: IV; Rate: 1 bolus; Site: left antecubital; hb 13:12 Follow up: Response: No adverse reaction; IV Status: Completed infusion Disposition: 13:22 Co-signature as Attending Physician, Florentin Caldwell MD. rn Disposition: 01/11/20 12:32 Discharged to Home. Impression: Vomiting. - Condition is Stable. - Discharge Instructions: Nausea and Vomiting, Adult. - Prescriptions for Reglan 10 mg Oral Tablet - take 1 tablet by ORAL route every 6 hours take 30 minutes before meals and at bedtime; 20 tablet. - Medication Reconciliation Form, Thank You Letter, Antibiotic Education, Prescription Opioid Use form. - Follow up: Private Physician; When: 2 - 3 days; Reason: Recheck today's complaints, Continuance of care, Re-evaluation by your physician. - Notes: You may take 25 mg of vitamin B6 3 times a day and 25 mg of unisom (doxylamine) once a day before bed to help with nausea and vomiting. Signatures: Dispatcher [employer] EDMS Lasha Siddiqi PA PA [facility] Florentin Caldwell MD MD rn Baxter, Heather, RN RN hb Harris, Amy RN Corrections: (The following items were deleted from the chart) 13:12 12:32 01/11/2020 12:32 Discharged to Home. Impression: Vomiting. Condition is Stable. hb Forms are Medication Reconciliation Form, Thank You Letter, Antibiotic Education, Prescription Opioid Use. Follow up: Private Physician; When: 2 - 3 days; Reason: Recheck today's complaints, Continuance of care, Re-evaluation by your physician. [facility]
--- NOTE | 2020-01-11 12:33 | ER ---
Nurse's Notes [facility] Name: Pieter Rosas Age: 19 yrs Sex: Female : 2000 Arrival Date: 01/11/2020 Time: 09:57 Bed 20 Private MD: Diagnosis: Vomiting Presentation: 01/10 10:06 Chief complaint: N/V x 2 days. Not tolerating fluids. Pt reports she is approx 8 weeks hb , LMP 11/14/19. Coronavirus screen: Proceed with normal triage. Ebola Screen: No symptoms or risks identified at this time. Initial Sepsis Screen: Does the patient meet any 2 criteria? No. Patient's initial sepsis screen is negative. Does the patient have a suspected source of infection? No. Patient's initial sepsis screen is negative. Risk Assessment: Do you want to hurt yourself or someone else? Patient reports no desire to harm self or others. Onset of symptoms was January 10, 2020. 10:06 Method Of Arrival: Ambulatory hb 10:06 Acuity: GILDA 3 hb Triage Assessment: 10:08 General: Appears in no apparent distress. Behavior is calm, cooperative. Pain: Denies hb pain. EENT: No signs and/or symptoms were reported regarding the EENT system. Neuro: Level of Consciousness is awake, alert, obeys commands, Oriented to person, place, time, situation. Cardiovascular: Capillary refill < 3 seconds Patient's skin is warm and dry. Respiratory: Respiratory effort is even, unlabored, Respiratory pattern is regular, symmetrical. GI: Reports intolerance of fluids, nausea, vomiting. : No signs and/or symptoms were reported regarding the genitourinary system. Derm: Skin is pink, warm \T\ dry. Musculoskeletal: No signs and/or symptoms reported regarding the musculoskeletal system. 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 - Social history:: Smoking status: Patient denies any tobacco usage or history of. Screenin:41 Abuse screen: Denies threats or abuse. Denies injuries from another. Nutritional hb screening: No deficits noted. Tuberculosis screening: No symptoms or risk factors identified. Fall Risk None identified. Assessment: 10:10 General: see triage assessment. hb 11:15 Reassessment: Patient and/or family updated on plan of care and expected duration. Pain ah level reassessed. Pt lying in bed with resp even and unlabored. No needs voiced at this time. 12:35 Reassessment: Patient and/or family updated on plan of care and expected duration. Pain ah level reassessed. Discharge instructions given and educted Pt on prescriptions. Pt voiced understanding. Assisted pt to POV via WC. Pt tolerated well. Vital Signs: 10:06 BP 119 / 78; Pulse 81; Resp 16; Temp 97.8; Pulse Ox 100% ; Weight 62.14 kg; Height 5 hb ft. 5 in. (165.10 cm); Pain 0/10; 11:00 BP 110 / 90; Pulse 67; Resp 16; Pulse Ox 100% ; ah 12:00 BP 101 / 66; Pulse 57; Resp 16; Pulse Ox 100% ; ah 10:06 Body Mass Index 22.80 (62.14 kg, 165.10 cm) hb ED Course: 09:57 Patient arrived in ED. mr 10:08 Triage completed. hb 10:08 Arm band placed on. hb 10:09 Lasha Siddiqi PA is PHCP. jm 10:09 Florentin Caldwell MD is Attending Physician. jmm 10:30 Patient has correct armband on for positive identification. Bed in low position. Call light in reach. 10:41 Mariia Collado, RN is Primary Nurse. hb 10:48 Initial lab(s) drawn, by tx, sent to lab. Inserted saline lock: 22 gauge in left dh3 antecubital area, using aseptic technique. Blood collected. 12:45 No provider procedures requiring assistance completed. IV discontinued, intact, ah bleeding controlled, No redness/swelling at site. Pressure dressing applied. Administered Medications: 11:01 Drug: Reglan 10 mg Route: IVP; Site: left antecubital; hb 13:12 Follow up: Response: No adverse reaction ah 11:01 Drug: diphenhydrAMINE 12.5 mg Route: IVP; Site: left antecubital; hb 13:11 Follow up: Response: No adverse reaction 11:02 Drug: NS 0.9% 1000 ml Route: IV; Rate: 1 bolus; Site: left antecubital; 13:12 Follow up: Response: No adverse reaction; IV Status: Completed infusion Outcome: 12:32 Discharge ordered by . raimundo 13:04 Discharged to home ambulatory. 13:04 Condition: good 13:04 Discharge instructions given to patient, Instructed on discharge instructions, follow up and referral plans. medication usage, Demonstrated understanding of instructions, follow-up care, medications, Prescriptions given X 1. 13:12 Patient left the ED. Signatures: Lasha Siddiqi PA PA jmm Rivera, Mary mr Mariia Collado, RN RN Quin Moncada [facility] Hayley Hurtado, RN RN
[2020-01-11 13:28] VITALS: TEMP 97.8; O2SAT 100
[2020-01-11 13:31] VITALS: BP 101/66
== END 2020-01-11 13:12 | disposition home or self-care (01) ==
LOC: ER 09:53
DX: O21.9 Vomiting of pregnancy, unspecified (principal); Z3A.08 8 weeks gestation of pregnancy
CPT/HCPCS: 36415; 80048; 80076; 81003; 81025; 83690; 85025; 96361; 96374; 96375; 99284; J2550; J2765; J7030

== ENCOUNTER 2020-01-29 11:20 | Emergency (ER) | payer SELFPAY ==
[2020-01-29 12:12] LABS: Absolute Lymphocytes (CBC) 1.5 K/uL (0.7-4.9); Basophils % 0.4 % (0-1.3); Hematocrit 40.8 % (36.0-45.0); Lymphocytes % 12.6 % (15.3-44.8); MPV 9.8 fL (7.6-11.3); RBC Red Blood Cell Count 5.13 M/uL (3.86-4.86)
[2020-01-29] MEDS ORDERED: NA CHLORIDE 0.9% 1,000 ML ONE (12:22)
[2020-01-29] MEDS ORDERED: PROMETHAZINE INJ 25 MG/ML AMP ONE (12:22)
--- OUTSIDE RECORDS SUMMARY | 2020-01-29 12:35 | XMS REPORT | Continuity of Care Document ---
:2000 Author Organization [facility] t Address [address] [place] [address] Care Team Providers Name Role Phone Lavern Hammer Attending Clinician Denise Attending Clinician Unavailable Gayle Goff Attending Clinician Unavailable Problems This patient has no known problems. Allergies, Adverse Reactions, Alerts This patient has no known allergies or adverse reactions. Medications This patient has no known medications. Procedures This patient has no known procedures. Encounters Start End Encounter Admission Attending Care Care Encounter Source Date/Time Date/Time Type Type Clinicians Facility Department ID 2020-01-22 2020-01-22 Telephone LUNA Sales [id number] 00:00:00 00:00:00 Elio Puckett QUALITY MANAGEMENT NURSE [id number] [facility] [id number] MATERNAL [id number] & CHILD [address] [place] [address] Results Test Description Test Time Test Comments [...] Source: Urine Clean CatchCulture, Strep Group A [id number] 11:02:00 Test Item Value Reference Range Interpretation Comments Culture, Strep Group A Rflx (test STRPCULT code = STRPACULT) Culture, Strep Group A Rflx (test N code = STRPACULT1) Strep Group A [id number] 00:11:00 Test Item Value Reference Range Interpretation Comments Strep Group A Screen (test code = STRPANEG1 STRP) Strep Group A Screen (test code = N STRP1) Strep Group A Screen (test code = STRPTH STRP1)
--- OUTSIDE RECORDS SUMMARY | 2020-01-29 12:38 | XMS REPORT | Summary of Care ---
:2000 Author Organization [facility] Address [address] [place] [address] Care Team Providers Name Role Phone Osmin Fernanda Jabari Primary Care Provider Reason for Visit Reason Comments Assessment vomiting Encounter Details Date Type Department Care Team Description 01/11/2020 [facility] Elio Sales, As sessment (vomiting) [address] [address] [place], [place] [phone] [address] [phone] Allergies No Known Allergiesdocumented as of this encounter (statuses as of 01/11/2020) Medications Medication Sig Dispensed Refills Start Date End Date Status ondansetron (ZOFRAN Take 1 tablet by 14 tablet 0 12/29/2019 Active ODT) 4 mg mouth every 8 disintegrating (eight) hours as tabletIndications: needed for Nausea Vomiting, and Vomiting intractability of (N/V). vomiting not specified, presence of nausea not specified, unspecified vomiting type vit Take by mouth. 0 A ctive calc,iron,folic ( #2 ORAL) proMETHazine 25 mg Take 1 tablet by 30 tablet 1 01/11/2020 Active tabletIndications: mouth every 4 Nausea and vomiting in (four) hours as prior to 22 needed for Nausea weeks gestation and Vomiting (N/V). documented as of this encounter (statuses as of 01/11/2020) Active Problems Problem Noted Date Maternal varicella, [...] as of this encounter (statuses as of 01/11/2020) Immunizations Name Administration Dates Next Due DTP [...] Date Type Specialty Care Team Description 01/14/2020 Telemedicine Visit [facility] Elina Willoughby MD [address] [facility] [id number] [place], [place] [id number] Faculty, Cecil Rmchmaria esther [facility] 01/30/2020 Routine Visit [facility] Lavern Sales, FOREST FIRE WARDEN [address] [place], [place] [address] Health Maintenance Due Date Last Done Comments [...] filedocumented in this encounter Visit Diagnoses Diagnosis Nausea and vomiting in prior t o 22 weeks gestation - Primary Mild hyperemesis gravidarum, unspecified as to episode of care documented in this encounter Insurance Payer Benefit Plan Subscriber ID Effective Phone Address Typ e / Group Dates MEDICAID MEDICAID PENDING 2019-[address]ending [address]ENDING PENDING [address] [place] [phone] [facility] [id number] 2019-[facility]3] [facility] [place] [id number] Effective for HOSPIT [facility] I H C I H C all dates [address] [place] [id number] [employer] COMM [id number] 2020-Pres 305 [facility] MAURICE SAMUELS documented as of this encounter Advance Directives Name Relationship Healthcare Agent Communication Relationship Charlotte Rosas Mother Primary healthcare agent
--- OUTSIDE RECORDS SUMMARY | 2020-01-29 12:39 | XMS REPORT | Summary of Care ---
:2000 Author Organization [facility] Address [address] [place] [address] Care Team Providers Name Role Phone Fernanda Solorio Primary Care Provider Reason for Visit Reason Comments GI Problem Superior mesenteric artery s yndrome (Routine) Status Reason Specialty Diagnoses / Referred By Referred To Procedures Contact Contact New Request Maternal Diagnoses Superior mesenteric artery syndrome Elio Sales Medicine Procedures CONSULT/REFERRAL MATERNAL MEDICINE FACULTY/FELLOW Preferred location: KATHERINE Bishop [address] [place] [address] Encounter Details Date Type Department Care Team Description 01/14/2020 Telemedicine Visit [facility]- Elina Alexander MD 301 [facility] [id number], [place] [id number] Superior mesenteric artery syndrome ([facility] shima Dx); [place] Faculty, [facility] Mf Supervision of high risk , ante ; [address] [facility] Non-intra ctable vomiting with nausea, [place] [address] Allergies No Known Allergiesdocumented as of this encounter (statuses as of 01/14/2020) Medications Medication Sig Dispensed Refills Start Date [...] as of this encounter (statuses as of 01/14/2020) Active Problems Problem Noted Date Maternal varicella, [...] as of this encounter (statuses as of 01/14/2020) Immunizations Name Administration Dates Next Due DTP [...] on filedocumented in this encounter Progress Notes Radha Martinez MD - 01/14/2020 9:00 AM CDT TELEHEALTH NOTE Verbal consent obtained from Patient: Pieter Rosas due to the COVID-19 pandemic for telehealth services provided below. Communication with patient was conducted via Telephone due to patient unable to obtain video call option. Location of Patient: Home Location of Provider: Office Date of Service: 01/14/2020 Chief Complaint: Supermes HPI: Pieter Rosas is a 19 year old at 4w4d who presents for consult for superior mesentericartery syndrome . Dx in 07/2019 with PCP, couldn't eat, n/v, weak. Has imaging done at the time, to confirm dx. Has not followed up with GI since then. Has intermittent abdominal pain, n/v. Lower abdominal pain resolves with Tylenol 650 mg PRN. N/v previously had 10+ episodes per day. Symptoms greatlyimproved with phenergan, now has 1 episode per day Past Medical History: Diagnosis Date Anemia ongoing, not on medication Asthma as a child, not on medication SMAS (superior mesenteric artery syndrome) 08/2019 MEDICATIONS: Current Outpatient Medications Medication Sig Dispense Refill proMETHazine 25 mg tablet Take 1 tablet by mouth every 4 (four) hours as needed for Nausea and Vomiting (N/V). 30 tablet 1 vit calc,iron,folic ( #2 ORAL) Take by mouth. ondansetron (ZOFRAN ODT) 4 mg disintegrating tablet Take 1 tablet by mouth every 8 (eight) hoursas needed for Nausea and Vomiting (N/V). 14 tablet 0 No current facility-administered medications for this visit. ROS Constitutional: negative Cardiovascular: negative Respiratory: negative Gastrointestinal: As per HPI Genitourinary: negative Musculoskeletal: negative Neuro: negative Psych: negative TELEHEALTH EXAM Normal respirations, NO SOB observed over phone call Alert and communicating appropriately No distress ASSESSMENT/ PLAN Pieter Rosas is a 19 year old female with PMH as above presenting with: Superior mesenteric artery syndrome -dx in 07/2019 -request ROR previously sent, no records in chart; patient to call PCP today -reports intermittent abdominal pain, n/v -CMP wnl -counseled about SMA in , limited studies have been done some case reports document worsening GI symptoms in and recurrent miscarriages -plan to monitor patient for worsening GI symptoms -f/u in MFM clinic in 4 weeks N/V -previously vomited about 10 times a day -started phenergan 25 mg Q4H PRN 2 days ago, now only has 1 episode of vomiting per day -will continue medication, patient strongly encouraged to keep track of symptoms and weight Abdominal pain -intermittent lower abdominal pain -resolves with 650 mg Tylenol -continue Tylenol PRN After visit summary (AVS ) documentation will be available through [employer] for this encounter. A total of 25 minutes was spent on the Telephone due to patient unable to obtain video call option. Radha Martinez MD documented in this encounter Plan of Treatment Date Type Specialty Care Team Description 01/30/2020 Routine Visit [facility]ellites Lavern Sales, GAS DISTRIBUTION PLANT OPERATOR [address] [place] [address] [phone] Health Maintenance Due Date Last Done Comments [...] filedocumented in this encounter Visit Diagnoses Diagnosis Superior mesenteric artery syndrome - Pr imary Chronic vascular insufficiency of intest ine Supervision of high risk , ante Non-intractable vomiting with nausea, un specified vomiting type documented in this encounter Insurance Payer Benefit Plan / Subscriber ID Effective Phone Address T ype Group Dates MEDICAID MEDICAID PENDING 2019-[address] [place] [address] documented as of this encounter Advance Directives Name Relationship Healthcare Agent Communication Relationship Crystal Ralph Mother Primary healthcare agent
--- OUTSIDE RECORDS SUMMARY | 2020-01-29 12:39 | XMS REPORT | Summary of Care ---
:2000 Author Organization [facility] Address [address] [place] [address] Care Team Providers Name Role Phone Fernanda Solorio Primary Care Provider Reason for Referral (Routine) Status Reason Specialty Diagnoses / Referred By Referred To Procedures Contact Contact New Request Maternal Diagnoses Supervision of high risk , antepartum Elio Sales Medicine Procedures CONSULT MATERNAL MEDICINE ULTRASOUND Preferred Location: [facility] [address] [place] [address] Reason for Visit Reason Comments Assessment Rx Concern/Question Encounter Details Date Type Department Care Team Description 01/22/2020 Telephone [facility]- Elio Sales, As sessment; Rx [facility] Concern/Question 110[address] [facility] [address] [place], [place] [address] [place] [address] [phone] [address] [phone] Allergies No Known Allergiesdocumented as of this encounter (statuses as of 01/23/2020) Medications Medication Sig Dispensed Refills Start Date [...] for Nausea weeks gestation and Vomiting (N/V). vit Take 1 Packet by 30 Each 6 01/23/2020 Active 89-qdgh-bmnoc-dha mouth daily. (SELECT-OB + DHA) 29 mg iron-1 mg -250 mg combo packIndications: Supervision of high risk , antepartum documented as of this encounter (statuses as of 01/23/2020) Active Problems Problem Noted Date Maternal varicella, [...] as of this encounter (statuses as of 01/23/2020) Immunizations Name Administration Dates Next Due DTP [...] Description 01/30/2020 Routine Visit [facility] Lavern Sales R, TIMEKEEPING SUPERVISOR [address] [place] [address] [phone] 02/11/2020 Routine Visit [facility]ellites Faculty, Cecil [facility] p [facility] Health Maintenance Due Date Last Done Comments [...] filedocumented in this encounter Visit Diagnoses Diagnosis Supervision of high risk , ante - Primary documented in this encounter Insurance Payer Benefit Plan Subscriber ID Effective Phone Address Typ e / Group Dates MEDICAID MEDICAID PENDING 2019-[address] [place] [address] [facility] [id number] 2019-[facility] [place] [phone] Effective for HOSPIT [facility] I H C I H C all dates [address] [place] [address] [employer] COMM [id number] 2020-Pres 305 [facility] ent [place], [place] documented as of this encounter Advance Directives Name Relationship Healthcare Agent Communication Relationship Charlotte Rosas Mother Primary healthcare agent
--- OUTSIDE RECORDS SUMMARY | 2020-01-29 12:39 | XMS REPORT | Summary of Care ---
:2000 Author Organization [facility] Address [address] [place] [address] Care Team Providers Name Role Phone Osmin Fernanda Jabari Primary Care Provider Reason for Visit Reason Comments Assessment vomiting Encounter Details Date Type Department Care Team Description 01/11/2020 [facility] Elio Sales, As sessment (vomiting) [address] [address] [place], [place] [phone] [address] [phone] Allergies No Known Allergiesdocumented as of this [...] OB Satellites Elina Willoughby MD [address] [facility] [id number] [place], [place] [id number] Faculty, Cecil Rmchmaria esther [facility] 01/30/2020 Routine Visit [facility]ellites Lavern Sales, FLOUR INSPECTOR [address] [place], [place] [address] Health Maintenance Due Date [...] e / Group Dates MEDICAID MEDICAID PENDING 2019-[address] Pending [address]ENDING PENDING [address] [place] [phone] [facility] [id number] 2019-[facility] [place] [phone] Effective for [facility] I H C I H C all dates 120 [place] [address] [employer] COMM [employer] COMM [id number] 2020-Pres 305 [facility] MAUR[place] SAMUELS documented as of this encounter Advance Directives Name Relationship Healthcare Agent Communication Relationship Charlotte Rosas Mother Primary healthcare agent
--- OUTSIDE RECORDS SUMMARY | 2020-01-29 12:40 | XMS REPORT | Summary of Care ---
:2000 Author Organization [facility] Address [address] [place] [address] Care Team Providers Name Role Phone Fernanda Solorio Primary Care Provider Reason for Referral (Routine) Status Reason Specialty Diagnoses / Referred By Referred To Procedures Contact Contact New Request Maternal Diagnoses Supervision of high risk , antepartum Elio Sales Medicine Procedures CONSULT MATERNAL MEDICINE ULTRASOUND Preferred Location: [facility] [address] [place] [address] Reason for Visit Reason Comments Assessment Rx Concern/Question Encounter Details Date Type Department Care Team Description 01/22/2020 Telephone [facility]- Elio Sales, As sessment; Rx [facility] Concern/Question 1108 [facility] [address] [place], [place] [address] [place] [address] [phone] [address] [phone] Allergies No Known Allergiesdocumented as of this [...] Packet by 30 Each 6 01/23/2020 Active 53-rdou-ebtuc-dha mouth daily. (SELECT-OB + DHA) 29 mg iron-1 mg -250 mg combo packIndications: Supervision of high risk , antepartum proMETHazine 25 mg Take 1 tablet by 30 tablet 1 01/23/2020 Active tabletIndications: mouth every 4 Nausea and [...] 01/30/2020 Routine Visit [facility] Lavern Sales, MOTORS ASSEMBLER [address] [place] [address] [phone] 02/11/2020 Routine Visit [facility] Faculty, Cecil [facility] p [facility] Health Maintenance Due Date Last Done [...] of high risk , ante - Primary Nausea and vomiting in prior t o 22 weeks gestation Mild hyperemesis gravidarum, unspecified as to episode of care documented in this encounter Insurance Payer Benefit Plan Subscriber ID Effective Phone Address Typ e / Group Dates MEDICAID MEDICAID PENDING 2019-[address] [place] [address] [facility] [id number] 2019-[facility] [place] [phone] Effective for HOSPIT [facility] I H C I H C all dates 120 [place] [id number] [employer] COMM [facility] [facility] Supplies[employer] COMM [id number] 2020-Pres 305 [facility] ent MAURICE SERVIN documented as of this encounter Advance Directives Name Relationship Healthcare Agent Communication Relationship Charlotte Rosas Mother Primary healthcare agent
--- OUTSIDE RECORDS SUMMARY | 2020-01-29 12:40 | XMS REPORT | Summary of Care ---
:2000 Author Organization [facility] Address [address] [place] [address] Care Team Providers Name Role Phone Fernanda Solorio Primary Care Provider Reason for Referral (Routine) Status Reason Specialty Diagnoses / Referred By Referred To Procedures Contact Contact New Request Maternal Diagnoses Supervision of high risk , antepartum Elio Sales Medicine Procedures CONSULT MATERNAL MEDICINE ULTRASOUND Preferred Location: [facility] [address] [place] [address] Reason for Visit Reason Comments Assessment Rx Concern/Question Encounter Details Date Type Department Care Team Description 01/22/2020 Telephone [facility]- Elio Sales, As sessment; Rx [facility] Concern/Question 1108 [facility] [address] [place], [place] [address] [place] [address] [phone] [address] [phone] Allergies No Known Allergiesdocumented as of this [...] Packet by 30 Each 6 01/23/2020 Active 72-dzps-nclgt-dha mouth daily. (SELECT-OB + DHA) 29 mg [...] Routine Visit [facility] Satellites Lavern Sales R, MARINE ELECTRICIAN [address] [place] [address] [phone] 02/11/2020 Routine Visit OB Satellites Faculty, Cecil [facility] p [facility] Health Maintenance Due Date Last Done [...] e / Group Dates MEDICAID MEDICAID PENDING 2019-[address] [place] [address] [facility] [id number] 2019-[facility] [place] [phone] Effective for HOSPIT [facility] I H C I H C all dates [address] [place] [address] [employer] COMM [employer] COMM [id number] 2020-Pres 305 [facility] ent [place], [place] documented as of this encounter Advance Directives Name Relationship Healthcare Agent Communication Relationship Charlotte Rosas Mother Primary healthcare agent
--- OUTSIDE RECORDS SUMMARY | 2020-01-29 12:40 | XMS REPORT | Summary of Care ---
:2000 Author Organization [facility] Address [address] [place] [id number] Care Team Providers Name Role Phone Fernanda Solorio Primary Care Provider Reason for Referral (Routine) Status Reason Specialty Diagnoses / Referred By Referred To Procedures Contact Contact New Request Maternal Diagnoses Supervision of high risk , antepartum Elio Sales Medicine Procedures CONSULT MATERNAL MEDICINE ULTRASOUND Preferred Location: [facility] [address] [place] [address] Reason for Visit Reason Comments Assessment Rx Concern/Question Encounter Details Date Type Department Care Team Description 01/22/2020 Telephone [facility]- Elio Sales, As sessment; Rx [facility] Concern/Question 1108 [facility] [address] [place], [place] [id number] [place] [address] [phone] [id number] [phone] Allergies No Known Allergiesdocumented as of this [...] Packet by 30 Each 6 01/23/2020 Active 95-huub-ogvld-dha mouth daily. (SELECT-OB + DHA) 29 mg [...] 01/30/2020 Routine Visit [facility] Lavern Sales, MILL ROLL OPERATOR [address] [place] [address] [phone] 02/11/2020 Routine Visit [facility] Faculty, [facility] Health Maintenance Due Date Last Done [...] e / Group Dates MEDICAID MEDICAID PENDING 2019-[address] Pending [place] [address] [facility] [id number] 2019-[facility] [place] [id number] Effective for [facility] I H C all dates [address] [id number] [employer] COMM [id number] 2020-Pres 305 [facility] ent MAURICE SERVIN documented as of this encounter Advance Directives Name Relationship Healthcare Agent Communication Relationship Charlotte Rosas Mother Primary healthcare agent
[2020-01-29 12:51] LABS: BUN Blood Urea Nitrogen 5 mg/dL (7-18); Bicarbonate 24 mmol/L (21-32); Glucose Level 84 mg/dL (74-106); HCG, Quantitative 96953 mIU/mL (1-3); Potassium 3.7 mmol/L (3.5-5.1); Sodium Level 135 mmol/L (136-145)
[2020-01-29 12:53] LABS: Urine Blood NEGATIVE (NEG); Urine Glucose NEGATIVE (NEG); Urine Protein NEGATIVE (NEG); Urine pH 7.5 (5.0-7.0)
--- NOTE | 2020-01-29 13:02 | RAD REPORT ---
EXAM DESCRIPTION: US - 1St Trimest Single 1St Fetus - 01/29/2020 12:36 pm CLINICAL HISTORY: with pelvic pain COMPARISON: None. FINDINGS: The uterus measures 8 x 7 x 7 centimeters. The gestational sac appears somewhat low-lying . A yolk sac is present. A pole with a crown-rump length 4 centimeters. Cardiac activity 165 be ats per minute Neither ovary seen secondary to overlying bowel gas. An adnexal mass is not noted. No significant free fluid is seen. IMPRESSION: Single live intrauterine with an estimated gestational age 10 weeks 5 days ED D 08/21/2020. If a survey is desired it should be performed in about 8 weeks The gestational sac appears somewhat low lying and can be monitored on a subsequent examination
--- NOTE | 2020-01-29 13:20 | ER ---
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 It causes me a lot of pain in my stomach that it hurts to move and I feel very weak. Denies diarrhea. Denies fever. Coronavirus screen: Proceed with normal triage. Patient denies a cough. Patient denies shortness of breath or difficulty breathing. Patient denies measured and/or subjective temperature greater than 100.4F prior to today's visit. Patient denies travel on a cruise ship or to a country the [facility] currently lists as an affected area. Patient denies contact with known and/or suspected case of COVID-19. Ebola Screen: Patient negative for fever greater than or equal to 101.5 degrees Fahrenheit, and additional compatible Ebola Virus Disease symptoms Patient denies exposure to infectious person. Patient denies travel to an Ebola-affected area in the 21 days before illness onset. No symptoms or risks identified at this time. Initial Sepsis Screen: Does the patient meet any 2 criteria? No. Patient's initial sepsis screen is negative. Does the patient have a suspected source of infection? No. Patient's initial sepsis screen is negative. Risk Assessment: Do you want to hurt yourself or someone else? Patient reports no desire to harm self or others. Onset of symptoms was January 29, 2020. 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 - Social history:: Smoking status: Patient denies any tobacco usage or history of. Screenin:01 Abuse screen: Denies threats or abuse. Denies injuries from another. Nutritional jl7 screening: No deficits noted. Tuberculosis screening: No symptoms or risk factors identified. Fall Risk IV access (20 points). Total Alexandre Fall Scale indicates No Risk (0-24 pts). Assessment: 12:01 General: Appears in no apparent distress. uncomfortable, Behavior is calm, cooperative. jl7 Pain: Complains of pain in left lower quadrant Pain currently is 8 out of 10 on a pain scale. Neuro: Level of Consciousness is awake, alert, obeys commands, Oriented to person, place, time, situation. Cardiovascular: Patient's skin is warm and dry. Respiratory: Airway is patent Respiratory effort is even, unlabored, Respiratory pattern is regular, symmetrical. GI: Abdomen is flat, non-distended, Last BM was January 28, 2020. : Denies burning with urination. Derm: Skin is pink, warm \T\ dry. 13:15 Reassessment: ERP at bedside discussing results and POC. jl7 13:24 Reassessment: Pt provided with cup of water for PO challenge. jl7 13:34 Reassessment: Patient states feeling better. Patient states symptoms have improved. jl7 Vital Signs: 11:33 BP 105 / 82; Pulse 92; Resp 15 S; Temp 97.6(TE); Pulse Ox 100% on R/A; Weight 66.68 kg ca1 (R); Height 5 ft. 5 in. (165.10 cm) (R); Pain 8/10; 12:20 BP 116 / 72; Pulse 85; Resp 16 S; Pulse Ox 99% on R/A; jl7 13:22 BP 99 / 68; Pulse 65; Resp 16; Pulse Ox 100% ; jl7 11:33 Body Mass Index 24.46 (66.68 kg, 165.10 cm) ca1 ED Course: 11:22 Patient arrived in ED. as 11:23 Kellie Catalan [facility]-C [facility] kb 11:23 Florentin Caldwell MD is Attending Physician. kb 11:38 Triage completed. ca1 11:39 Arm band placed on right wrist. ca1 11:40 Lupis Salgado, RN is Primary Nurse. jl7 12:01 Patient has correct armband on for positive identification. Placed in gown. Bed in low jl7 position. Call light in reach. Side rails up X 1. Pulse ox on. NIBP on. Warm blanket given. 12:01 Initial lab(s) drawn, by me, sent to lab. Urine collected: clean catch specimen, clear. jl7 Inserted saline lock: 22 gauge in right antecubital area, using aseptic technique. Blood collected. 12:37 1St Trimest Single 1St Fetus In Process Unspecified. EDMS 13:34 No provider procedures requiring assistance completed. IV discontinued, intact, jl7 bleeding controlled, No redness/swelling at site. Pressure dressing applied. Administered Medications: 12:15 Drug: NS 0.9% 1000 ml Route: IV; Rate: 1000 ml; Site: right antecubital; jl7 13:34 Follow up: Response: No adverse reaction; IV Status: Completed infusion; IV Intake: jl7 1000ml 12:15 Drug: Phenergan 6.25 mg Route: IVP; Site: right antecubital; jl7 13:24 Follow up: Response: No adverse reaction; Nausea is decreased jl7 Intake: 13:34 IV: 1000ml; Total: 1000ml. jl7 Outcome: 13:19 Discharge ordered by . kb 13:34 Discharged to home ambulatory. jl7 13:34 Condition: stable 13:34 Discharge instructions given to patient, Instructed on discharge instructions, follow up and referral plans. Demonstrated understanding of instructions, follow-up care. 13:36 Patient left the ED. jl7 Signatures: Dispatcher [employer] EDMS Kellie Catalan, KATHERINE-C DIRECTOR OF FIELD COORDINATION-Maura Valera as Lupis Salgado, RN RN jl7 Cristy Osborne RN RN ca1
--- NOTE | 2020-01-29 13:20 | EDPHYS ---
Physician Documentation [facility] Name: Pieter Rosas Age: 19 yrs Sex: Female : 2000 Arrival Date: 01/29/2020 Time: 11:22 Bed 8 Private MD: ED Physician Florentin Caldwell HPI: 01/28 11:52 This 19 yrs old Female presents to ER via Ambulatory with complaints of kb Abdominal Pain - 11 wks preg. 11:52 The patient presents to the emergency department with abdominal pain, nausea and kb vomiting. The estimated gestational age is 11 weeks. course: care: at a clinic, Leakage of Fluid: none appreciated, Ultrasound: the patient has not had an ultrasound, Risk/complications: SMAS. Previous pregnancies: in previous pregnancies patient has had. Associated signs and symptoms: Pertinent positives: abdominal pain, nausea, vomiting. The patient has not experienced similar symptoms in the past. The patient has not recently seen a physician. Pt reports she is 11 weeks and has been vomiting more than usual over the past week. Reports increased pain today that made her come in. Reports pain to LLQ and epigastric area. . 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 - Social history:: Smoking status: Patient denies any tobacco usage or history of. ROS: 11:52 Constitutional: Negative for fever, chills, and weight loss, Cardiovascular: Negative kb for chest pain, palpitations, and edema, Respiratory: Negative for shortness of breath, cough, wheezing, and pleuritic chest pain, Back: Negative for injury and pain, MS/Extremity: Negative for injury and deformity, Skin: Negative for injury, rash, and discoloration, Neuro: Negative for headache, weakness, numbness, tingling, and seizure. 11:52 Abdomen/GI: Positive for abdominal pain, nausea and vomiting, Negative for diarrhea, constipation, abdominal cramps, abdominal distension, anorexia. Exam: 11:52 Constitutional: This is a well developed, well nourished patient who is awake, alert, kb and in no acute distress. Head/Face: Normocephalic, atraumatic. Chest/axilla: Normal chest wall appearance and motion. Nontender with no deformity. No lesions are appreciated. Cardiovascular: Regular rate and rhythm with a normal S1 and S2. No gallops, murmurs, or rubs. Normal PMI, no JVD. No pulse deficits. Respiratory: Lungs have equal breath sounds bilaterally, clear to auscultation and percussion. No rales, rhonchi or wheezes noted. No increased work of breathing, no retractions or nasal flaring. Back: No spinal tenderness. No costovertebral tenderness. Full range of motion. Skin: Warm, dry with normal turgor. Normal color with no rashes, no lesions, and no evidence of cellulitis. MS/ Extremity: Pulses equal, no cyanosis. Neurovascular intact. Full, normal range of motion. Neuro: Awake and alert, GCS 15, oriented to person, place, time, and situation. Cranial nerves II-XII grossly intact. Motor strength 5/5 in all extremities. Sensory grossly intact. Cerebellar exam normal. Normal gait. 11:52 Abdomen/GI: Inspection: abdomen appears normal, Bowel sounds: normal, in all quadrants, Palpation: soft, in all quadrants, mild abdominal tenderness, in the left lower quadrant. Vital Signs: 11:33 BP 105 / 82; Pulse 92; Resp 15 S; Temp 97.6(TE); Pulse Ox 100% on R/A; Weight 66.68 kg ca1 (R); Height 5 ft. 5 in. (165.10 cm) (R); Pain 8/10; 12:20 BP 116 / 72; Pulse 85; Resp 16 S; Pulse Ox 99% on R/A; jl7 13:22 BP 99 / 68; Pulse 65; Resp 16; Pulse Ox 100% ; jl7 11:33 Body Mass Index 24.46 (66.68 kg, 165.10 cm) ca1 MDM: 11:40 Patient medically screened. kb 11:52 Data reviewed: vital signs, nurses notes. Data interpreted: Pulse oximetry: on room air kb is 100 %. Interpretation: normal. 13:10 Counseling: I had a detailed discussion with the patient and/or guardian regarding: the kb historical points, exam findings, and any diagnostic results supporting the discharge/admit diagnosis, lab results, radiology results, the need for outpatient follow up, an OB/Gyne specialist, to return to the emergency department if symptoms worsen or persist or if there are any questions or concerns that arise at home. ED course: Pt has follow up appt with OB tomorrow. 01/28 11:41 Order name: Quantitative Hcg; Complete Time: 12:54 kb 01/28 11:41 Order name: Abo/rh Typing; Complete Time: 12:35 kb 01/28 11:41 Order name: Basic Metabolic Panel; Complete Time: 12:54 kb 01/28 11:41 Order name: CBC with Diff; Complete Time: 12:15 kb 01/28 11:56 Order name: Urine Dipstick--Ancillary (enter results); Complete Time: 12:54 em1 01/28 11:57 Order name: Urine --Ancillary (enter results); Complete Time: 12:54 em1 01/28 11:41 Order name: Urine Test (obtain specimen); Complete Time: 11:53 kb 01/28 11:41 Order name: IV Saline Lock; Complete Time: 11:59 kb 01/28 11:41 Order name: Labs collected and sent; Complete Time: 11:59 kb 01/28 11:41 Order name: NPO; Complete Time: 11:59 kb 01/28 12:37 Order name: 1St Trimest Single 1St Fetus; Complete Time: 13:04 EDMS 01/28 11:41 Order name: Urine Dipstick-Ancillary (obtain specimen); Complete Time: 11:53 kb 01/28 13:04 Order name: PO challenge; Complete Time: 13:24 kb Administered Medications: 12:15 Drug: NS 0.9% 1000 ml Route: IV; Rate: 1000 ml; Site: right antecubital; jl7 13:34 Follow up: Response: No adverse reaction; IV Status: Completed infusion; IV Intake: jl7 1000ml 12:15 Drug: Phenergan 6.25 mg Route: IVP; Site: right antecubital; jl7 13:24 Follow up: Response: No adverse reaction; Nausea is decreased jl7 Disposition: 15:37 Co-signature as Attending Physician, Florentin Caldwell MD. rn Disposition: 01/29/20 13:19 Discharged to Home. Impression: 10 weeks gestation of . - Condition is Stable. - Discharge Instructions: First Trimester of , [id number]. - Medication Reconciliation Form, Thank You Letter, Antibiotic Education, Prescription Opioid Use form. - Follow up: Emergency Department; When: As needed; Reason: Worsening of condition. Follow up: Private Physician; When: 2 - 3 days; Reason: Recheck today's complaints, Continuance of care, Re-evaluation by your physician. - Problem is new. - Symptoms have improved. Signatures: Dispatcher [employer] EDNJ Kellie Catalan, DIRECTOR OF COUNSELING-C DIRECTOR OF COUNSELING-Ckb Florentin Caldwell MD MD rn Lupis Salgado RN RN jl7 Cristy Osborne RN RN ca1 Corrections: (The following items were deleted from the chart) 12:37 12:11 Transvaginal Ob+US.RAD.BRZ ordered. [facility] 13:36 13:19 01/29/2020 13:19 Discharged to Home. Impression: 10 weeks gestation of . jl7 Condition is Stable. Discharge Instructions: First Trimester of , [id number]. Forms are Medication Reconciliation Form, Thank You Letter, Antibiotic Education, Prescription Opioid Use. Follow up: Emergency Department; When: As needed; Reason: Worsening of condition. Follow up: Private Physician; When: 2 - 3 days; Reason: Recheck today's complaints, Continuance of care, Re-evaluation by your physician. Problem is new. Symptoms have improved. kb
[2020-01-29 13:44] VITALS: TEMP 97.6
[2020-01-29 13:47] VITALS: BP 99/68; O2SAT 100
== END 2020-01-29 13:36 | disposition home or self-care (01) ==
LOC: ER 11:20
DX: O21.9 Vomiting of pregnancy, unspecified (principal); Z3A.10 10 weeks gestation of pregnancy
CPT/HCPCS: 36415; 76801; 80048; 81003; 81025; 84702; 85025; 86900; 86901; 96361; 96374; 99284; J2550; J7030

== ENCOUNTER → 2023-07-31 | Emergency (ER) | payer OTHER, SELFPAY ==
[~2023-07-31] MED LIST: NA CHLORIDE 0.9% 2,000 ML ONE; ONDANSETRON 4 MG/2 ML VIAL ONE; PROMETHAZINE INJ 25 MG/ML AMP ONE
--- OUTSIDE RECORDS SUMMARY | 2023-07-31 12:43 | XMS REPORT | Continuity of Care Document ---
Author Name Unknown Address [address] [facility] [address] [place] [address] [facility] thconnect Address [address] [facility] [place] [address] Care Team Providers Care Executive Sous Chef Name Role Phone MARC Attending Clinician Unavailable FERNY Attending Clinician Unavailable Fernanda Solorio Attending Clinician [phone] Elio Hammer Attending Clinician [phone] Clarence Walker Attending Clinician Unavailable Arnoldo Goff Attending Clinician Unavailable MARC Admitting Clinician Unavailable FERNY Admitting Clinician Unavailable Payers Payer Name Policy Type Policy Number Effective Date Expirati on Date Source [facility] (MEDICAID HMO) [id number] 2020 00:00:00 Problems Condition Name Condition Details Condition Category Status Onset Date Resolution Date Last Treatment Date Treating Clinician Comments Source Superior mesenteric artery syndrome Superior Mesenteric Artery Syndrome Problem Active 2018-08 00:00: 00 [facility] Anemia Anemia Problem Active 2018-08 00:00: 00 [facility] Seasonal allergy Seasonal Allergy Problem Active 2018-08 00:00: 00 [facility] Asthma Asthma Problem Active 2018-08 00:00: 00 [facility] Patient new to provider Patient New to Provider Problem Active 2018-08 00:00: 00 [facility] Social History Smoking Status Start Date Stop Date Source Never Smoker [facility] Medications Ordered Medication Name Filled Medication Name Start Date Stop Date Current Medication? Ordering Clinician Indication Dosage Frequency Signature (SIG) Comments Components Source cefdinir 300 mg capsule Take 1 capsule every 12 hours by oral route as directed for 7 days. cefdinir 300 mg capsule Take 1 capsule every 12 hours by oral route as directed for 7 days. No 1capsul e(s) Q12H cefdinir 300 mg capsule Take 1 capsule every 12 hours by oral route as directed for 7 days. [facility] Medrol (Mahendra) 4 mg tablets in a dose pack Take 1 dose pk by oral route as directed for 6 days. Medrol (Mahendra) 4 mg tablets in a dose pack Take 1 dose pk by oral route as directed for 6 days. No 1dose pk(s) Medrol (Mahendra) 4 mg tablets in a dose pack Take 1 dose pk by oral route as directed for 6 days. [facility] bupropion HCl SR 100 mg tablet,12 hr sustained-r elease Take 1 tablet every day by oral route as directed for 30 days. bupropion HCl SR 100 mg tablet,12 hr sustained-r elease Take 1 tablet every day by oral route as directed for 30 days. No 1 Q1D bupropion HCl SR 100 mg tablet,12 hr sustained- release Take 1 tablet every day by oral route as directed for 30 days. [facility] bupropion HCl SR 100 mg tablet,12 hr sustained-r elease Take 1 tablet every day by oral route as directed for 30 days. bupropion HCl SR 100 mg tablet,12 hr sustained-r elease Take 1 tablet every day by oral route as directed for 30 days. No 1 Q1D bupropion HCl SR 100 mg tablet,12 hr sustained- release Take 1 tablet every day by oral route as directed for 30 days. [facility] cefdinir 300 mg capsule Take 1 capsule every 12 hours by oral route as directed for 10 days. cefdinir 300 mg capsule Take 1 capsule every 12 hours by oral route as directed for 10 days. No 1capsul e(s) Q12H cefdinir 300 mg capsule Take 1 capsule every 12 hours by oral route as directed for 10 days. [facility] prednisone 5 mg tablets in a dose pack Take 1 dose pk by oral route as directed for 6 days. prednisone 5 mg tablets in a dose pack Take 1 dose pk by oral route as directed for 6 days. No 1dose pk(s) prednisone 5 mg tablets in a dose pack Take 1 dose pk by oral route as directed for 6 days. [facility] Vital Signs Vital Name Observation Time Observation Value Comments S ource BP Diastolic 2021-04-29 00:00:00 83 mm[Hg] [facility] Height 2021-04-29 00:00:00 65 [in_i] [facility] BMI (Body Mass Index) 2021-04-29 00:00:00 22.7 kg/m2 [facility] BP Systolic 2021-04-29 00:00:00 122 mm[Hg] [facility] Body Weight 2021-04-29 00:00:00 2182.4 [oz_av] [facility] BP Diastolic 2020-12-18 00:00:00 75 mm[Hg] [facility] Height 2020-12-18 00:00:00 65 [in_i] [facility] BMI (Body Mass Index) 2020-12-18 00:00:00 24.3 kg/m2 [facility] BP Systolic 2020-12-18 00:00:00 130 mm[Hg] [facility] Body Weight 2020-12-18 00:00:00 2332.8 [oz_av] [facility] BP Diastolic 2020-10-09 00:00:00 79 mm[Hg] [facility] Height 2020-10-09 00:00:00 65 [in_i] [facility] BMI (Body Mass Index) 2020-10-09 00:00:00 24 kg/m2 [facility] BP Systolic 2020-10-09 00:00:00 124 mm[Hg] [facility] Body Weight 2020-10-09 00:00:00 2310.4 [oz_av] [facility] Procedures Procedure Date / Time Performed Performing Clinicia n Source XR, chest, 2 view 2020-10-09 00:00:00 [facility] Knee Surgery [facility] Plan of Care Planned Activity Planned Date Details Comments Source Diagnostic Test Pending 2021-04-29 00:00:00 rapid strep group A, throat [code = rapid strep group A, throat] [facility] Diagnostic Test Pending 2021-04-29 00:00:00 rapid SARS CoV 2 Ag, QL IA, respiratory specimen [code = rapid SARS CoV 2 Ag, QL IA, respiratory specimen] [facility] Instructions [facility] Encounters Start Date/Time End Date/Time Encounter Type Admission Type Attending Clinicians Care Facility Care Department Encounter ID Source 2021-07-27 12:14:00 2021-07-27 12:14:00 Outpatient WATERS_S [facility] [id number] [facility] 2021-07-27 12:14:00 2021-07-27 12:14:00 Outpatient [facility] [id number] 2021-04-29 05:13:00 2021-04-29 05:13:00 Outpatient SCHAUBROECK _L [facility] [id number] [facility] 2021-04-29 00:00:00 2021-04-29 00:00:00 Fernanda lopez, [facility]-: [address] [place] [address], [address], [place] [address] , Ph. [facility] [id number] [facility] 2021-04-29 00:00:00 2021-04-29 00:00:00 Outpatient Fernanda Solorio [facility] [id number] 2020-12-18 04:30:00 2020-12-18 04:30:00 Outpatient RADHAUBROECK _L [facility] [id number] 2020-12-18 00:00:00 2020-12-18 00:00:00 Outpatient CelesteFernanda nava [facility] [id number] 2020-12-18 00:00:00 2020-12-18 00:00:00 TARA Sánchez-C: [address] [place] [address], [address], [place] [address] , Ph. [facility] [id number] [facility] 2020-12-18 00:00:00 2020-12-18 00:00:00 Outpatient CelesteFernanda nava [facility] [id number] 2020-10-09 12:17:00 2020-10-09 12:17:00 Outpatient SCHAUBROECK _L [facility] [id number] [facility] 2020-10-09 00:00:00 2020-10-09 00:00:00 Outpatient CelesteFernanda nava [facility] [id number] 2020-10-09 00:00:00 2020-10-09 00:00:00 TARA Sánchez-C: [address] [place] [address], [address], [place] [address] , Ph. [facility] [id number] [facility] 2020-06-27 02:17:00 2020-06-27 02:17:00 Outpatient SCHAUBROECK _L [facility] [id number] 2020-06-27 02:17:00 2020-06-27 02:17:00 Outpatient SCHAUBROECK _L [facility] [id number] [facility] 2020-01-22 00:00:00 2020-01-22 00:00:00 Telephone lEio Sales [facility] ROOM CLERK [facility] [id number] Results Test Description Test Time Test Comments Results Result Co mments Source [facility] Clinicsrapid strep group A, [id number] 15:53:00 * Test Item Value Reference Range Interpretation Comme nts Strep (test code = Strep) [facility] 12:37:00* Test Item Value Reference Range Interpretation Comme [...] Source: Urine Clean CatchCulture, Strep Group A [id number] 11:02:00* Test Item Value Reference Range Interpretation Comme nts Culture, Strep Group A Rflx (test code = STRPACULT) STRPCULT Culture, Strep Group A Rflx (test code = STRPACULT1) N Strep Group A [id number] 00:11:00* Test Item Value Reference Range Interpretation Comme nts Strep Group A Screen (test c ode = STRP) STRPANEG1 Strep Group A Screen (test c ode = STRP1) N Strep Group A Screen (test c ode = STRP1) STRPTH
[2023-07-31 14:30] LABS: Absolute Lymphocytes (CBC) 1.5 K/uL (0.7-4.9); Hematocrit 33.9 % (36.0-45.0); Lymphocytes % 11.5 % (15.3-44.8); MCV 80.5 fL (80-100); MPV 9.5 fL (7.6-11.3); Platelets 290 thou/uL (152-406); RBC Red Blood Cell Count 4.21 M/uL (3.86-4.86)
[2023-07-31 14:41] LABS: Specific Gravity > 1.030 (1.005-1.030); Urine Bacteria None Seen /HPF (<20); Urine Bilirubin NEGATIVE (Negative); Urine Blood Negative (Negative); Urine Clarity Turbid (Clear); Urine Color Yellow (Yellow); Urine Glucose NEGATIVE (Negative); Urine Mucus 4+ /HPF (None Seen); Urine Protein 1+ (Negative); Urine RBC <5 /HPF (None Seen); Urine Urobilinogen Normal (Normal)
[2023-07-31 14:48] LABS: Albumin 3.8 g/dL (3.4-5.0); Potassium 3.6 mEq/L (3.5-5.1); Protein, Total 7.4 g/dL (6.4-8.2)
--- NOTE | 2023-07-31 14:52 | EDPHYS ---
Physician Documentation [facility] Name: Pieter Rosas Age: 22 yrs Sex: Female : 2000 Arrival Date: 07/31/2023 Time: 12:28 Bed 7 Private MD: ED Physician Moiz Sanchez HPI: 07/31 19:04 This 22 yrs old Black Female presents to ER via Ambulatory with complaints of 10 weeks rt , Abdominal Pain, Vomiting. 19:04 Patient presents to the ED with nausea and vomiting in the first trimester. Patient rt states that she has not been able keep any thing down. The patient denies any abdominal pain. She was prescribed meclizine by her physician but did not take any. Denies other acute complaints, symptoms are moderate in severity, no other aggravating or alleviating factors.. 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 - Social history:: Smoking status: Patient denies any tobacco usage or history of. - Family history:: not pertinent. ROS: 19:04 Constitutional: Negative for fever, chills, and weight loss, Cardiovascular: Negative rt for chest pain, palpitations, and edema, Respiratory: Negative for shortness of breath, cough, wheezing, and pleuritic chest pain, MS/Extremity: Negative for injury and deformity, Skin: Negative for injury, rash, and discoloration, Neuro: Negative for headache, weakness, numbness, tingling, and seizure, Psych: Negative for depression, anxiety, suicide ideation, homicidal ideation, and hallucinations, 19:04 Abdomen/GI: Positive for nausea and vomiting, Negative for abdominal pain, Exam: 19:04 Constitutional: This is a well developed, well nourished patient who is awake, alert, rt and in no acute distress. Head/Face: Normocephalic, atraumatic. Chest/axilla: Normal chest wall appearance and motion. Nontender with no deformity. No lesions are appreciated. Cardiovascular: Regular rate and rhythm with a normal S1 and S2. No gallops, murmurs, or rubs. Normal PMI, no JVD. No pulse deficits. Respiratory: Lungs have equal breath sounds bilaterally, clear to auscultation and percussion. No rales, rhonchi or wheezes noted. No increased work of breathing, no retractions or nasal flaring. Abdomen/GI: Soft, non-tender, with normal bowel sounds. No distension or tympany. No guarding or rebound. No evidence of tenderness throughout. Skin: Warm, dry with normal turgor. Normal color with no rashes, no lesions, and no evidence of cellulitis. MS/ Extremity: Pulses equal, no cyanosis. Neurovascular intact. Full, normal range of motion. Neuro: Awake and alert, GCS 15, oriented to person, place, time, and situation. Cranial nerves II-XII grossly intact. Motor strength 5/5 in all extremities. Sensory grossly intact. Cerebellar exam normal. Normal gait. Psych: Awake, alert, with orientation to person, place and time. Behavior, mood, and affect are within normal limits. Vital Signs: 12:43 BP 122 / 76; Pulse 88; Resp 18; Temp 98.1; Pulse Ox 99% ; Weight 57.15 kg; Height 5 ft. db 5 in. ; 14:46 BP 112 / 68; Pulse 62; Resp 16 S; Pulse Ox 100% on R/A; aa5 12:43 Body Mass Index 20.97 (57.15 kg, 165.1 cm) db MDM: 12:55 Patient medically screened. rt 19:04 Differential diagnosis: Hyperemesis, electrolyte disturbance, UTI. Data reviewed: vital rt signs, nurses notes, lab test result(s). Test considered but Not performed: CT: No abdominal tenderness, CT scan not indicated. Counseling: I had a detailed discussion with the patient and/or guardian regarding the historical points, exam findings, and any diagnostic results supporting the discharge/admit diagnosis, lab results, the need for outpatient follow up, to return to the emergency department if symptoms worsen or persist or if there are any questions or concerns that arise at home. Response to treatment: the patient's symptoms have markedly improved after treatment. 07/31 13:02 Order name: CBC with Diff; Complete Time: 14:49 rt 07/31 13:02 Order name: CMP; Complete Time: 14:49 rt 07/31 13:02 Order name: UAM; Complete Time: 14:49 rt Administered Medications: 14:10 Drug: NS 0.9% IV 2000 ml IV at 1000 ml once Route: IV; Rate: 1000 ml; Site: right aa5 antecubital; 15:37 Follow up: IV Intake: 1500ml ; IV fluids stopped, pt requesting to be d/c'd home now. aa5 14:10 Drug: Promethazine IVP 12.5 mg IVP once Route: IVP; Site: right antecubital; aa5 14:20 Follow up: Response: No adverse reaction aa5 14:12 Drug: Ondansetron IVP 4 mg IVP once; over 2 minutes Route: IVP; Site: right antecubital;aa5 14:20 Follow up: Response: No adverse reaction aa5 Disposition Summary: 07/31/23 14:52 Discharge Ordered Notes: Location: Home rt Problem: new rt Symptoms: have improved rt Condition: Stable rt Diagnosis - Hyperemesis gravidarum rt Followup: rt - With: Private Physician - When: 2 - 3 days - Reason: Discharge Instructions: - Discharge Summary Sheet rt - Hyperemesis Gravidarum rt Forms: - Medication Reconciliation Form rt - Thank You Letter rt - Antibiotic Education rt - Prescription Opioid Use rt - Patient Portal Instructions rt - Leadership Thank You Letter rt Prescriptions: - promethazine 25 mg Oral Tablet - take 1 tablet ORAL route every 6 hours As needed; 20 tablet; Refills: 0, rt Product Selection Permitted Signatures: Dispatcher [employer] Genevieve Agarwal, RN RN aa5 Rae España, RN RN Moiz Nuno MD MD rt
--- NOTE | 2023-07-31 14:52 | ER ---
Nurse's Notes [facility] Name: Pieter Rosas Age: 22 yrs Sex: Female : 2000 Arrival Date: 07/31/2023 Time: 12:28 Bed 7 Private MD: Diagnosis: Hyperemesis gravidarum Presentation: 07/31 12:43 Chief complaint: Patient states: NAUSEA/VOMITING STATES X 3 DAYS WAS PRESCRIBED db PROMETHAZINE BY OB IS 9 WEEKS . Coronavirus screen: Vaccine status: Patient reports being unvaccinated. Client denies travel out of the [place] in the last 14 days. At this time, the client does not indicate any symptoms associated with coronavirus-19. Ebola Screen: Patient negative for fever greater than or equal to 101.5 degrees Fahrenheit, and additional compatible Ebola Virus Disease symptoms Patient denies exposure to infectious person. Patient denies travel to an Ebola-affected area in the 21 days before illness onset. No symptoms or risks identified at this time. Initial Sepsis Screen: Does the patient meet any 2 criteria? No. Patient's initial sepsis screen is negative. Does the patient have a suspected source of infection? No. Patient's initial sepsis screen is negative. Risk Assessment: Do you want to hurt yourself or someone else? Patient reports no desire to harm self or others. Onset of symptoms was July 28, 2023. 12:43 Method Of Arrival: Ambulatory db 12:43 Acuity: GILDA 3 db Triage Assessment: 12:45 General: Appears in no apparent distress. comfortable, Behavior is calm, cooperative. db Pain: Denies pain. Neuro: Level of Consciousness is awake, alert, obeys commands, Oriented to person, place, time, situation. Respiratory: Airway is patent Respiratory effort is even, unlabored, Respiratory pattern is regular, symmetrical. GI: Abdomen is flat, non-distended, Pt is actively vomiting Reports nausea, vomiting. 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 - Social history:: Smoking status: Patient denies any tobacco usage or history of. - Family history:: not pertinent. Screenin:00 [facility] ED Fall Risk Assessment (Adult) History of falling in the last 3 months, aa5 including since admission No falls in past 3 months (0 pts) Confusion or Disorientation No (0 pts) Intoxicated or Sedated No (0 pts) Impaired Gait No (0 pts) Mobility Assist Device Used No (0 pt) Altered Elimination No (0 pt) Score/Fall Risk Level 0 - 2 = Low Risk Oriented to surroundings, Maintained a safe environment, Educated pt \T\ family on fall prevention, incl call for assistance when getting out of bed. Abuse screen: Denies threats or abuse. Nutritional screening: No deficits noted. Tuberculosis screening: No symptoms or risk factors identified. Assessment: 13:00 General: Appears uncomfortable, Behavior is calm, cooperative. Pain: Complains of pain aa5 in abdomen Quality of pain is described as aching, crampy. Neuro: Level of Consciousness is awake, alert, obeys commands, Oriented to person, place, time, situation. Cardiovascular: Heart tones S1 S2 present Rhythm is regular. Respiratory: Airway is patent Respiratory effort is even, unlabored, Respiratory pattern is regular, symmetrical. GI: Abdomen is non-distended, Bowel sounds present X 4 quads. Abd is soft and non tender X 4 quads. Reports nausea, vomiting. : No signs and/or symptoms were reported regarding the genitourinary system. Denies burning with urination, vaginal bleeding. EENT: No signs and/or symptoms were reported regarding the EENT system. Derm: Skin is pink, warm \T\ dry. Musculoskeletal: Range of motion: intact in all extremities. 14:46 Reassessment: Patient is alert, oriented x 3, equal unlabored respirations, skin aa5 warm/dry/pink. Patient states feeling better. Pt given crackers to eat per MD VO. . 15:00 Reassessment: Awaiting NS bolus to complete before d/c home per MD VO. . aa5 15:38 Reassessment: Patient is alert, oriented x 3, equal unlabored respirations, skin aa5 warm/dry/pink. Vital Signs: 12:43 BP 122 / 76; Pulse 88; Resp 18; Temp 98.1; Pulse Ox 99% ; Weight 57.15 kg; Height 5 ft. db 5 in. ; 14:46 BP 112 / 68; Pulse 62; Resp 16 S; Pulse Ox 100% on R/A; aa5 12:43 Body Mass Index 20.97 (57.15 kg, 165.1 cm) db ED Course: 12:41 Patient arrived in ED. im 12:43 Moiz Sanchez MD is Attending Physician. rt 12:45 Triage completed. db 12:46 Arm band placed on Patient placed in an exam room. db 12:53 Genevieve Schmitt, MELANIE is Primary Nurse. aa5 13:00 Patient has correct armband on for positive identification. Placed in gown. Bed in low aa5 position. Call light in reach. Side rails up X 1. Adult w/ patient. Pulse ox on. NIBP on. 14:10 Initial lab(s) drawn, by me, sent to lab. Inserted saline lock: 20 gauge in right aa5 antecubital area, using aseptic technique. Blood collected. 15:38 No provider procedures requiring assistance completed. IV discontinued, intact, aa5 bleeding controlled, No redness/swelling at site. Pressure dressing applied. Administered Medications: 14:10 Drug: NS 0.9% IV 2000 ml IV at 1000 ml once Route: IV; Rate: 1000 ml; Site: right aa5 antecubital; 15:37 Follow up: IV Intake: 1500ml ; IV fluids stopped, pt requesting to be d/c'd home now. aa5 14:10 Drug: Promethazine IVP 12.5 mg IVP once Route: IVP; Site: right antecubital; aa5 14:20 Follow up: Response: No adverse reaction aa5 14:12 Drug: Ondansetron IVP 4 mg IVP once; over 2 minutes Route: IVP; Site: right antecubital;aa5 14:20 Follow up: Response: No adverse reaction aa5 Medication: 15:38 VIS not applicable for this client. aa5 Intake: 15:37 IV: 1500ml; Total: 1500ml. aa5 Outcome: 14:52 Discharge ordered by . rt 15:38 Discharged to home ambulatory, with significant other, aa5 15:38 Condition: improved 15:38 Discharge instructions given to patient, Instructed on discharge instructions, follow up and referral plans. medication usage, Demonstrated understanding of instructions, follow-up care, medications, Prescriptions given X 1, 15:38 Patient left the ED. aa5 Signatures: Genevieve Schmitt RN MELANIE [email or web address] Rae España RN RN Moiz Nuno MD MD rt Nell Mclean Corrections: (The following items were deleted from the chart) 13:57 12:48 Reassessment: vinnie borden
[2023-07-31 15:58] VITALS: TEMP 98.1
[2023-07-31 16:05] VITALS: BP 112/68; O2SAT 100
== END ==
LOC: ER 12:28
DX: O21.0 Mild hyperemesis gravidarum (principal); Z3A.10 10 weeks gestation of pregnancy
CPT/HCPCS: 85025; 81001; 36415; 80053; 96375; 96374; 99284; J2550; J2405; J7030

== ENCOUNTER 2024-02-03 23:40 | Emergency (ER) | payer OTHER ==
--- OUTSIDE RECORDS SUMMARY | 2024-02-03 23:58 | XMS REPORT | Continuity of Care Document ---
Author Name Unknown Address [address] [facility] [address] [place] [address] [facility] thconnect Address [address] [facility] [address] [place] [address] Care Team Providers Care [employer] Member Name Role Phone PCP, PATIENT DOES NOT HAVE A Primary Care Physic bj Unavailable KEYA PORTILLO Attending Clinician Unavailable LE BAILEY Attending Clinician UnavailGINA Hoff Attending Clinician Unavail Gina Carl Attending Clinician + ANAID VELASQUEZ Attending Clinician Unav ailamrita 1, [facility] Attending Clinician UnavailAnaid King MD Attending Clinician + System, Amb Referring Provider Not In Attending Clinician Unavailable CHRISSY MCNEIL Attending Clinician UnavailJEYSON Nielsen Attending Clinician Unavailable Wen Bloom Attending Clinician UnavailJeyson Nielsen MD Attending Clinician [phone] Doctor Unassigned, [place] Attending Clinician U hajaailSAMMIE Murillo Attending Clinician Unavailable Sammie Hendrickson MD Attending Clinician [phone] RADHA CLEMONS Attending Clinician Unav ailable Ultrasound, [facility] Attending Clinician Unavaillauren Clemons MD, Radha Alejandro Attending Clinician + Lab, [facility] Attending Clinician Unavailable Le Bailey CNM Attending Clinician [phone] Farhta THAYER, Marco Antonio Attending Clinician [phone] MADHAVI SWEENEY Attending Clinician Unavailable Madhavi Sweeney MD Attending Clinician [phone] SVITLANA LE Attending Clinician Unavailable DONNA LEDEZMA Attending Clinician Unavailable Darien MUSIC MINISTRIES DIRECTORDonna Mayo Attending Clinician [phone] MARCO ANTONIO DOUGHERTY Attending Clinician Unavailab sara Belle, [facility] Attending Clinician Unavailable NATALIA CORONADO Attending Clinician Unavailable MADAN BADILLO Attending Clinician Unavailshin Badillo MD, Madan Farooq Attending Clinician [phone] Yanci Jeronimo MD Attending Clinician [phone] Unknown, Attending Attending Clinician Unavailab YANCI Hampton Attending Clinician Unavailable Svitlana Le MD Attending Clinician [phone] HITESH DIAZ Attending Clinician Unavailable Hitesh Diaz MD Attending Clinician [phone] LORENZO BOWLES Attending Clinician Unavailable 2, [facility] Attending Clinician Unavailable Natalia Dean Attending Clinician [phone] BRIONNA JENSEN Attending Clinician UnavailBRIONNA Farris Attending Clinician Unavaillauren Belle, [facility] Attending Clinician Unavailable Heaven Daugherty RN Attending Clinician UnavailBelinda Sheldon PA-C Attending Clinician [phone] ROBERT BURNS Attending Clinician Unavailable MARC Attending Clinician Unavailable FERNY Attending Clinician Unavailable Fernanda Solorio Attending Clinician [phone] Lab, [facility]ob I Attending Clinician Unavailab Tien Martines Attending Clinician [phone] Only, Adc Test Attending Clinician Unavailable Iker Frias MD Attending Clinician [phone] IKER FRIAS Attending Clinician Unavailable John Edward MD Attending Clinician [phone] Aaron Noe MD Attending Clinician [phone] Denis THAYER, Keya Barboza Attending Clinician [phone] Jovanna THAYER, Jonathon Attending Clinician [phone] Ultrasound, [facility] Attending Clinician Unavaillauren Tomas MD, Heaven Barboza Attending Clinician [phone] JOHN EDWARD Attending Clinician Unavailable Manjinder THAYER, Cristine Anderson Attending Clinician [phone] MADAN NARAYANAN Attending Clinician Ro Raghu Rollins MD Attending Clinician [phone] Henrry MUSIC MINISTRIES DIRECTORElio Mayo Attending Clinician + [phone] Faculty, [facility] Attending Clinician Unava bailey Mcneil MD, Chrissy Barboza Attending Clinician [phone] Jazmin Rose DO Attending Clinician [phone] CRISTINE HAWKINS Attending Clinician Unavailable ELIO EMERY Attending Clinician Unavailab Shyam THAYER, Angely Patel Attending Clinician [phone] Singh Tony DO Attending Clinician [phone] AUBREE SHIRLEY Attending Clinician UnavailClarence Faith Attending Clinician Unavailable Arnoldo Goff Attending Clinician Unavailable SAMMIE HENDRICKSON Admitting Clinician Unavailable JOHN EDWARD Admitting Clinician Unavailable SVITLANA LE Admitting Clinician Unavailable Sammie Hendrickson MD Admitting Clinician [phone] TUAN_S Admitting Clinician Unavailable FERNY Admitting Clinician Unavailable John Edward MD Admitting Clinician [phone] Svitlana Le MD Admitting Clinician [phone] Payers Payer Name Policy Type Policy Number Effective Date Expirati on Date Source [facility] [id number] 2022 00:00[facility]00 [id number]:00:00 [place] [id number] 2020 00:00:00 MEDICAID PENDING PENDING 2019 00:00:00 [place] 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 See horzion screen [facility] Alpha thalassemi a silent carrier Alpha thalassemi a silent carrier Disease Active 09-05 00:00: 00 Overview: Formattin g of this note might be different from the original. 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 See horizon screen [facility] Genetic screening Genetic screening Disease Active 08-25 00:00: 00 Overview: Formattin g of this note might be different from the original. Addis low risk female [facility] Vaginal bleeding affecting early Vaginal bleeding affecting early Disease Active 08-24 00:00: 00 [facility] Chlamydia infection during Chlamydia infection during Disease Active 2022-08 00:00: 00 Overview: Formattin g of this note might be different from the original. neg tatiana [facility] Multiparit y Multiparit y Disease Active 2022-08 00:00: 00 [facility] History of History of Disease Active 2022-08 00:00: 00 [facility] Supervisio n of high-risk Supervisio n of high-risk Disease Active 2022-08 00:00: 00 [facility] Nausea and vomiting in Nausea and vomiting in Disease Active 2023-1 2-06 00:00: 00 [facility] Nexplanon removal Nexplanon removal Disease Active 2- 00:00: 00 [facility] Bucket-ryan dle tear of medial meniscus of right knee as current injury, subsequent encounter Bucket-ryan dle tear of medial meniscus of right knee as current injury, subsequent encounter Disease Active 2019-08 0-13 00:00: 00 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 Anemia Anemia Problem Active 2018-08 00:00: 00 [facility] Seasonal allergy Seasonal Allergy Problem Active 2018-08 00:00: 00 [facility] Asthma Asthma Problem Active 2018-08 00:00: 00 [facility] Patient new to provider Patient New to Provider Problem Active 2018-08 00:00: 00 [facility] Anemia Anemia Disease Active 2018-08 00:00: 00 [facility] Asthma Asthma Disease Active 2018-08 00:00: 00 [facility] Seasonal allergies Seasonal allergies Disease Active 2018-08 00:00: 00 [facility] Allergies, Adverse Reactions, Alerts Allergy Name Allergy Type Status Severity Reaction(s) Onset Date Inactive Date Treating Clinician Comments Source NO KNOWN ALLERGIE S Drug Class Active [facility] Social History Social Habit Start Date Stop Date Quantity Comments Source ASSERTION 2023-06-07 00:00:00 [facility] History SDOH Alcohol Comment [place] [facility] Gender identity [facility] History SDOH Alcohol Std Drinks [facility] History SDOH Alcohol Binge [facility] Alcoholic beverage intake 2023-11-21 00:00:00 2023-11-21 00:00:00 Lifetime non-drinker (finding) [facility] Alcohol intake 2023-11-21 00:00:00 2023-11-21 00:00:00 Lifetime non-drinker (finding) [facility] History of Social function 2023-09-02 00:00:00 2023-09-02 00:00:00 [facility] Exposure to SARS-CoV-2 (event) 2022-11-28 00:00:00 2022-12-08 21:30:00 Not sure [facility] Tobacco use and exposure 2022-04-21 00:00:00 2022-04-21 00:00:00 Smokeless tobacco non-user [facility] History SDOH Alcohol Frequency 2020-01-02 00:00:00 2020-01-02 00:00:00 1 [facility] Sex assigned at 2000 00:00:00 2000 00:00:00 [facility] Smoking Status Start Date Stop Date Source Never smoked tobacco [facility] Medications Ordered Medication Name Filled Medication Name Start Date Stop Date Current Medication? Ordering Clinician Indication Dosage Frequency Signature (SIG) Comments Components Source metroNIDAZO LE 500 mg tablet 11-23 00:00: 00 Yes [id number] 500mg Take 1 tablet by mouth in the morning and 1 tablet in the evening. [facility] fluconazole (DIFLUCAN) 150 mg tablet 11-23 00:00: 00 11-24 04:59 :00 No [id number] 150mg Take 1 tablet by mouth once now for [address] [facility] proMETHazin e 25 mg tablet 11-20 00:00: 00 Yes [id number] 25mg Take 1 tablet by mouth every 6 (six) hours as needed for Nausea and Vomiting (N/V). [facility] proMETHazin e 25 mg tablet 08-16 00:00: 00 Yes [id number] 25mg Take 1 tablet by mouth every 6 (six) hours as needed for Nausea and Vomiting (N/V). [facility] SERTraline 25 mg tablet 08-15 00:00: 00 Yes [id number] 25mg Take 1 tablet by mouth in the morning. [facility] NaCl 0.9% (NS) IV infusion 1,000 mL 2022-08 09:30: 00 08-05 10:21 :00 No 1000mL at 999 mL/hr, Intravenou s, ONCE, 1 dose, On Tue08/05/23 at 0330, Routine [facility] metoclopram wilian HCl (REGLAN) injection 10 mg 2022-08 08:45: 00 08-05 08:42 :00 No 10mg 10 mg, Slow IV Push, ONCE, 1 dose, On Tue08/05/23 at 0245, BECKY [facility] pantoprazol e (PROTONIX) injection 40 mg 2022-08 08:45: 00 08-05 08:47 :00 No 40mg 40 mg, Slow IV Push, ONCE, 1 dose, On Tue08/05/[address] [facility] pantoprazol e (PROTONIX) 40 mg EC tablet 2022-08 00:00: 00 Yes [id number] 40mg Take 1 tablet by mouth in the morning. [facility] proMETHazin e 25 mg tablet 2022-08 00:00: 00 Yes [id number] 25mg Take 1 tablet by mouth every 6 (six) hours as needed for Nausea and Vomiting (N/V). [facility] proMETHazin e 25 mg tablet 2022-08 00:00: 00 Yes [id number] 25mg Take 1 tablet by mouth every 4 (four) hours as needed for Nausea and Vomiting (N/V). [facility] azithromyci n 500 mg tablet 2022-08 00:00: 00 07-16 05:59 :00 No [id number] 1000mg Take 2 tablets by mouth once now for [address] [facility] proMETHazin e 25 mg tablet 2022-08 00:00: 00 Yes [id number] 25mg Take 1 tablet by mouth every 6 (six) hours as needed for Nausea and Vomiting (N/V). [facility] PNV 112-iron-FA -om-3s-dha- epa (VITAFOL GUMMIES) 3.33 mg iron- 0.33 mg Chew 2022-08 00:00: 00 Yes [id number] 3{tbl} Take 3 tablets by mouth in the morning. [facility] fsm67-ekmq- folic acid 29 mg iron- 1 mg per tablet 2022-08 00:00: 00 07-13 00:00 :00 No [id number] 1{tbl} Take 1 tablet by mouth in the morning. [facility] TUBERSOL 5 tub. unit /0.1 mL injection 2022-08 00:00: 00 07-13 00:00 :00 No [id number] INJECT 0.1 ML INTO THE SKIN ONCE NOW FOR [address] [facility] ferrous sulfate (IRON ORAL) 2022-08 10:28: 20 06-14 00:00 :00 No Take by mouth. [facility] SERTraline 25 mg tablet 2022-08 00:00: 00 08-15 00:00 :00 No [id number] 25mg Take 1 tablet by mouth in the morning. [facility] tuberculin ppd 5 tub. unit /0.1 mL injection 2022-08 00:00: 00 06-16 00:00 :00 No [id number] 5U Inject 0.1 mL into the skin once now for [address] [facility] etonogestre L (NEXPLANON) 68 mg implant 10-12 19:20: 06 10-12 00:00 :00 No 68mg 68 mg by Subdermal route once now. Insertion 08/06/2021 [facility] ondansetron 4 mg disintegrat ing tablet 10-12 00:00: 00 06-14 00:00 :00 No [id number] 4mg Take 1 tablet by mouth every 8 (eight) hours as needed for Nausea and Vomiting (N/V). [facility] Nitrofurant oin&Nit. Macrocryst 100 mg capsule 3-07 00:00: 00 10-18 04:59 :00 No [id number] 100mg Take 1 capsule by mouth in the morning and 1 capsule in the evening. Do all this for [address] [facility] etonogestre L (NEXPLANON) 68 mg implant 2-14 11:25: 17 Yes 68mg 68 mg by Subdermal route once now. Insertion 08/06/2021 [facility] ferrous sulfate (IRON ORAL) 2-14 11:25: 17 Yes Take by mouth. [facility] miSOPROStoL 200 mcg tablet 9-16 00:00: 00 10-12 00:00 :00 No Take one tablet the night before the procedure and one tablet the morning of the procedure. [facility] metroNIDAZO LE 500 mg tablet 7-28 00:00: 00 10-12 00:00 :00 No [id number] 500mg Take 1 tablet by mouth every 12 (twelve) hours. [facility] ferrous sulfate (IRON ORAL) 7- 15:07: 29 Yes Take by mouth. [facility] etonogestre L (NEXPLANON) 68 mg implant 03-03 14:52: 41 Yes 68mg 68 mg by Subdermal route once now. Insertion 08/06/2021 [facility] cefdinir 300 mg capsule Take 1 capsule every 12 hours by oral route as directed for 7 days. cefdinir 300 mg capsule Take 1 capsule every 12 hours by oral route as directed for 7 days. No 1capsul e(s) Q12H cefdinir 300 mg capsule Take 1 capsule every 12 hours by oral route as directed for 7 days. Bisi Graham [facility] Medrol (Mahendra) 4 mg tablets in a [...] oral route as directed for 6 days. [facility] bupropion HCl SR 100 mg tablet,12 hr [...] oral route as directed for 30 days. [facility] prednisone 5 mg tablets in a dose pack Take 1 dose pk by oral route as directed for 6 days. prednisone 5 mg tablets in a dose pack Take 1 dose pk by oral route as directed for 6 days. No 1dose pk(s) prednisone 5 mg tablets in a dose pack Take 1 dose pk by oral route as directed for 6 days. [facility] Immunizations Ordered Immunization Name Filled Immunization Name Date Status Comments Source SARS-COV-2 COVID-19 PFIZER VACCINE 2021-04-20 00:00:00 Completed [facility] SARS-COV-2 COVID-19 PFIZER VACCINE 2021-04-20 00:00:00 Completed [facility] SARS-COV-2 COVID-19 PFIZER VACCINE 2021-04-20 00:00:00 Completed [facility] SARS-COV-2 COVID-19 PFIZER VACCINE 2021-04-20 00:00:00 Completed [facility] Influenza Virus Vaccine Quad .5 mL IM 6+ MO 2020-05-20 00:00:00 Completed [facility] TDAP 2020-05-20 00:00:00 Completed [facility] Influenza Virus Vaccine Quad .5 mL IM 6+ MO 2020-05-20 00:00:00 Completed [facility] TDAP 2020-05-20 00:00:00 Completed [facility] Influenza Virus Vaccine Quad .5 mL IM 6+ MO 2020-05-20 00:00:00 Completed [facility] TDAP 2020-05-20 00:00:00 Completed [facility] Influenza Virus Vaccine Quad .5 mL IM 6+ MO 2020-05-20 00:00:00 Completed [facility] TDAP 2020-05-20 00:00:00 Completed [facility] Influenza Virus Vaccine Quad .5 mL IM 6+ MO 2020-05-20 00:00:00 Completed [facility] TDAP 2020-05-20 00:00:00 Completed [facility] Influenza Virus Vaccine Quad .5 mL IM 6+ MO 2020-05-20 00:00:00 Completed [facility] TDAP 2020-05-20 00:00:00 Completed [facility] Influenza Virus Vaccine Quad .5 mL IM 6+ MO 2020-05-20 00:00:00 Completed [facility] TDAP 2020-05-20 00:00:00 Completed [facility] Influenza Virus Vaccine Quad .5 mL IM 6+ MO 2020-05-20 00:00:00 Completed [facility] TDAP 2020-05-20 00:00:00 Completed [facility] Influenza Virus Vaccine Quad .5 mL IM 6+ MO 2020-05-20 00:00:00 Completed [facility] TDAP 2020-05-20 00:00:00 Completed [facility] Influenza Virus Vaccine Quad .5 mL IM 6+ MO 2020-05-20 00:00:00 Completed [facility] TDAP 2020-05-20 00:00:00 Completed [facility] Influenza Virus Vaccine Quad .5 mL IM 6+ MO 2020-05-20 00:00:00 Completed [facility] TDAP 2020-05-20 00:00:00 Completed [facility] Influenza Virus Vaccine Quad .5 mL IM 6+ MO 2020-05-20 00:00:00 Completed [facility] TDAP 2020-05-20 00:00:00 Completed [facility] Influenza Virus Vaccine Quad .5 mL IM 6+ MO 2020-05-20 00:00:00 Completed [facility] TDAP 2020-05-20 00:00:00 Completed [facility] Influenza Virus Vaccine Quad .5 mL IM 6+ MO 2020-05-20 00:00:00 Completed [facility] TDAP 2020-05-20 00:00:00 Completed [facility] Influenza Virus Vaccine Quad .5 mL IM 6+ MO 2020-05-20 00:00:00 Completed [facility] TDAP 2020-05-20 00:00:00 Completed [facility] Influenza Virus Vaccine Quad .5 mL IM 6+ MO 2020-05-20 00:00:00 Completed [facility] TDAP 2020-05-20 00:00:00 Completed [facility] influenza, injectable, quadrivalent influenza, injectable, quadrivalent 2020-05-08 00:00:[address] [facility] influenza, injectable, quadrivalent influenza, injectable, quadrivalent 2020-05-08 00:00:00 Com[address] [facility] influenza, injectable, quadrivalent influenza, injectable, quadrivalent 2020-05-08 00:00:00 Completed [facility] influenza, injectable, quadrivalent influenza, injectable, quadrivalent 2020-05-08 00:00:00 [address] [facility] HPV 2019-01-25 00:00:00 Completed [facility] Meningococcal Vaccine 2019-01-25 00:00:00 Completed [facility] Meningococcal B, OMV 2019-01-25 00:00:00 Completed [facility] HPV 2019-01-25 00:00:00 Completed [facility] Meningococcal Vaccine 2019-01-25 00:00:00 Completed [facility] Meningococcal B, OMV 2019-01-25 00:00:00 Completed [facility] HPV 2019-01-25 00:00:00 Completed [facility] Meningococcal Vaccine 2019-01-25 00:00:00 Completed [facility] Meningococcal B, OMV 2019-01-25 00:00:00 Completed [facility] HPV 2019-01-25 00:00:00 Completed [facility] Meningococcal Vaccine 2019-01-25 00:00:00 Completed [facility] Meningococcal B, OMV 2019-01-25 00:00:00 Completed [facility] HPV 2019-01-25 00:00:00 Completed [facility] Meningococcal Vaccine 2019-01-25 00:00:00 Completed [facility] Meningococcal B, OMV 2019-01-25 00:00:00 Completed [facility] HPV 2019-01-25 00:00:00 Completed [facility] Meningococcal Vaccine 2019-01-25 00:00:00 Completed [facility] Meningococcal B, OMV 2019-01-25 00:00:00 Completed [facility] HPV 2019-01-25 00:00:00 Completed [facility] Meningococcal Vaccine 2019-01-25 00:00:00 Completed [facility] Meningococcal B, OMV 2019-01-25 00:00:00 Completed [facility] HPV 2019-01-25 00:00:00 Completed [facility] Meningococcal Vaccine 2019-01-25 00:00:00 Completed [facility] Meningococcal B, OMV 2019-01-25 00:00:00 Completed [facility] HPV 2019-01-25 00:00:00 Completed [facility] Meningococcal Vaccine 2019-01-25 00:00:00 Completed [facility] Meningococcal B, OMV 2019-01-25 00:00:00 Completed [facility] HPV 2019-01-25 00:00:00 Completed [facility] Meningococcal Vaccine 2019-01-25 00:00:00 Completed [facility] Meningococcal B, OMV 2019-01-25 00:00:00 Completed [facility] HPV 2019-01-25 00:00:00 Completed [facility] Meningococcal Vaccine 2019-01-25 00:00:00 Completed [facility] Meningococcal B, OMV 2019-01-25 00:00:00 Completed [facility] HPV 2019-01-25 00:00:00 Completed [facility] Meningococcal Vaccine 2019-01-25 00:00:00 Completed [facility] Meningococcal B, OMV 2019-01-25 00:00:00 Completed [facility] HPV 2019-01-25 00:00:00 Completed [facility] Meningococcal Vaccine 2019-01-25 00:00:00 Completed [facility] Meningococcal B, OMV 2019-01-25 00:00:00 Completed [facility] HPV 2019-01-25 00:00:00 Completed [facility] Meningococcal Vaccine 2019-01-25 00:00:00 Completed [facility] Meningococcal B, OMV 2019-01-25 00:00:00 Completed [facility] HPV 2019-01-25 00:00:00 Completed [facility] Meningococcal Vaccine 2019-01-25 00:00:00 Completed [facility] Meningococcal B, OMV 2019-01-25 00:00:00 Completed [facility] HPV 2019-01-25 00:00:00 Completed [facility] Meningococcal Vaccine 2019-01-25 00:00:00 Completed [facility] Meningococcal B, OMV 2019-01-25 00:00:00 Completed [facility] TDAP (ADACEL) VACCINE 2012-12-06 00:00:00 Completed [facility] HPV 2012-12-06 00:00:00 Completed [facility] Meningococcal Vaccine 2012-12-06 00:00:00 Completed [facility] Varicella (varivax)(chicken pox) 2012-12-06 00:00:00 Completed [facility] TDAP (ADACEL) VACCINE 2012-12-06 00:00:00 Completed [facility] HPV 2012-12-06 00:00:00 Completed [facility] Meningococcal Vaccine 2012-12-06 00:00:00 Completed [facility] Varicella (varivax)(chicken pox) 2012-12-06 00:00:00 Completed [facility] TDAP (ADACEL) VACCINE 2012-12-06 00:00:00 Completed [facility] HPV 2012-12-06 00:00:00 Completed [facility] Meningococcal Vaccine 2012-12-06 00:00:00 Completed [facility] Varicella (varivax)(chicken pox) 2012-12-06 00:00:00 Completed [facility] TDAP (ADACEL) VACCINE 2012-12-06 00:00:00 Completed [facility] HPV 2012-12-06 00:00:00 Completed [facility] Meningococcal Vaccine 2012-12-06 00:00:00 Completed [facility] Varicella (varivax)(chicken pox) 2012-12-06 00:00:00 Completed [facility] TDAP (ADACEL) VACCINE 2012-12-06 00:00:00 Completed [facility] HPV 2012-12-06 00:00:00 Completed [facility] Meningococcal Vaccine 2012-12-06 00:00:00 Completed [facility] Varicella (varivax)(chicken pox) 2012-12-06 00:00:00 Completed [facility] TDAP (ADACEL) VACCINE 2012-12-06 00:00:00 Completed [facility] HPV 2012-12-06 00:00:00 Completed [facility] Meningococcal Vaccine 2012-12-06 00:00:00 Completed [facility] Varicella (varivax)(chicken pox) 2012-12-06 00:00:00 Completed [facility] TDAP (ADACEL) VACCINE 2012-12-06 00:00:00 Completed [facility] HPV 2012-12-06 00:00:00 Completed [facility] Meningococcal Vaccine 2012-12-06 00:00:00 Completed [facility] Varicella (varivax)(chicken pox) 2012-12-06 00:00:00 Completed [facility] TDAP (ADACEL) VACCINE 2012-12-06 00:00:00 [facility] [facility] 2012-12-06 00:00:00 Completed [facility] Meningococcal Vaccine 2012-12-06 00:00:00 Completed [facility] Varicella (varivax)(chicken pox) 2012-12-06 00:00:00 Completed [facility] TDAP (ADACEL) VACCINE 2012-12-06 00:00:00 Completed [facility] HPV 2012-12-06 00:00:00 Completed [facility] Meningococcal Vaccine 2012-12-06 00:00:00 Completed [facility] Varicella (varivax)(chicken pox) 2012-12-06 00:00:00 Completed [facility] TDAP (ADACEL) VACCINE 2012-12-06 00:00:00 Completed [facility] HPV 2012-12-06 00:00:00 Completed [facility] Meningococcal Vaccine 2012-12-06 00:00:00 Completed [facility] Varicella (varivax)(chicken pox) 2012-12-06 00:00:00 Completed [facility] TDAP (ADACEL) VACCINE 2012-12-06 00:00:00 Completed [facility] HPV 2012-12-06 00:00:00 Completed [facility] Meningococcal Vaccine 2012-12-06 00:00:00 Completed [facility] Varicella (varivax)(chicken pox) 2012-12-06 00:00:00 Completed [facility] TDAP (ADACEL) VACCINE 2012-12-06 00:00:00 Completed [facility] HPV 2012-12-06 00:00:00 Completed [facility] Meningococcal Vaccine 2012-12-06 00:00:00 Completed [facility] Varicella (varivax)(chicken pox) 2012-12-06 00:00:00 Completed [facility] TDAP (ADACEL) VACCINE 2012-12-06 00:00:00 Completed [facility] HPV 2012-12-06 00:00:00 Completed [facility] Meningococcal Vaccine 2012-12-06 00:00:00 Completed [facility] Varicella (varivax)(chicken pox) 2012-12-06 00:00:00 Completed [facility] TDAP (ADACEL) VACCINE 2012-12-06 00:00:00 Completed [facility] HPV 2012-12-06 00:00:00 Completed [facility] Meningococcal Vaccine 2012-12-06 00:00:00 Completed [facility] Varicella (varivax)(chicken pox) 2012-12-06 00:00:00 Completed [facility] TDAP (ADACEL) VACCINE 2012-12-06 00:00:00 Completed [facility] HPV 2012-12-06 00:00:00 Completed [facility] Meningococcal Vaccine 2012-12-06 00:00:00 Completed [facility] Varicella (varivax)(chicken pox) 2012-12-06 00:00:00 Completed [facility] TDAP (ADACEL) VACCINE 2012-12-06 00:00:00 Completed [facility] HPV 2012-12-06 00:00:00 Completed [facility] Meningococcal Vaccine 2012-12-06 00:00:00 Completed [facility] Varicella (varivax)(chicken pox) 2012-12-06 00:00:00 Completed [facility] DTP 2004-09-29 00:00:00 Completed [facility] MMR 2004-09-29 00:00:00 Completed [facility] Polio (IPV/OPV) 2004-09-29 00:00:00 Completed [facility] DTP 2004-09-29 00:00:00 Completed [facility] MMR 2004-09-29 00:00:00 Completed [facility] Polio (IPV/OPV) 2004-09-29 00:00:00 Completed [facility] DTP 2004-09-29 00:00:00 Completed [facility] MMR 2004-09-29 00:00:00 Completed [facility] Polio (IPV/OPV) 2004-09-29 00:00:00 Completed [facility] DTP 2004-09-29 00:00:00 Completed [facility] MMR 2004-09-29 00:00:00 Completed [facility] Polio (IPV/OPV) 2004-09-29 00:00:00 Completed [facility] DTP 2004-09-29 00:00:00 Completed [facility] MMR 2004-09-29 00:00:00 Completed [facility] Polio (IPV/OPV) 2004-09-29 00:00:00 Completed [facility] DTP 2004-09-29 00:00:00 Completed [facility] MMR 2004-09-29 00:00:00 Completed [facility] Polio (IPV/OPV) 2004-09-29 00:00:00 Completed [facility] DTP 2004-09-29 00:00:00 Completed [facility] MMR 2004-09-29 00:00:00 Completed [facility] Polio (IPV/OPV) 2004-09-29 00:00:00 Completed [facility] DTP 2004-09-29 00:00:00 Completed [facility] MMR 2004-09-29 00:00:00 Completed [facility] Polio (IPV/OPV) 2004-09-29 00:00:00 Completed [facility] DTP 2004-09-29 00:00:00 Completed [facility] MMR 2004-09-29 00:00:00 Completed [facility] Polio (IPV/OPV) 2004-09-29 00:00:00 Completed [facility] DTP 2004-09-29 00:00:00 Completed [facility] MMR 2004-09-29 00:00:00 Completed [facility] Polio (IPV/OPV) 2004-09-29 00:00:00 Completed [facility] DTP 2004-09-29 00:00:00 Completed [facility] MMR 2004-09-29 00:00:00 Completed [facility] Polio (IPV/OPV) 2004-09-29 00:00:00 Completed [facility] DTP 2004-09-29 00:00:00 Completed [facility] MMR 2004-09-29 00:00:00 Completed [facility] Polio (IPV/OPV) 2004-09-29 00:00:00 Completed [facility] DTP 2004-09-29 00:00:00 Completed [facility] MMR 2004-09-29 00:00:00 Completed [facility] Polio (IPV/OPV) 2004-09-29 00:00:00 Completed [facility] DTP 2004-09-29 00:00:00 Completed [facility] MMR 2004-09-29 00:00:00 Completed [facility] Polio (IPV/OPV) 2004-09-29 00:00:00 Completed [facility] DTP 2004-09-29 00:00:00 Completed [facility] MMR 2004-09-29 00:00:00 Completed [facility] Polio (IPV/OPV) 2004-09-29 00:00:00 Completed [facility] DTP 2004-09-29 00:00:00 Completed [facility] MMR 2004-09-29 00:00:00 Completed [facility] Polio (IPV/OPV) 2004-09-29 00:00:00 Completed [facility] DTP 2003-10-29 00:00:00 Completed [facility] Hep B, Adol or Pedi Dosage 2003-10-29 00:00:00 Completed [facility] Polio (IPV/OPV) 2003-10-29 00:00:00 Completed [facility] DTP 2003-10-29 00:00:00 Completed [facility] Hep B, Adol or Pedi Dosage 2003-10-29 00:00:00 Completed [facility] Polio (IPV/OPV) 2003-10-29 00:00:00 Completed [facility] DTP 2003-10-29 00:00:00 Completed [facility] Hep B, Adol or Pedi Dosage 2003-10-29 00:00:00 Completed [facility] Polio (IPV/OPV) 2003-10-29 00:00:00 Completed [facility] DTP 2003-10-29 00:00:00 Completed [facility] Hep B, Adol or Pedi Dosage 2003-10-29 00:00:00 Completed [facility] Polio (IPV/OPV) 2003-10-29 00:00:00 Completed [facility] DTP 2003-10-29 00:00:00 Completed [facility] Hep B, Adol or Pedi Dosage 2003-10-29 00:00:00 Completed [facility] Polio (IPV/OPV) 2003-10-29 00:00:00 Completed [facility] DTP 2003-10-29 00:00:00 Completed [facility] Hep B, Adol or Pedi Dosage 2003-10-29 00:00:00 Completed [facility] Polio (IPV/OPV) 2003-10-29 00:00:00 Completed [facility] DTP 2003-10-29 00:00:00 Completed [facility] Hep B, Adol or Pedi Dosage 2003-10-29 00:00:00 Completed [facility] Polio (IPV/OPV) 2003-10-29 00:00:00 Completed [facility] DTP 2003-10-29 00:00:00 Completed [facility] Hep B, Adol or Pedi Dosage 2003-10-29 00:00:00 Completed [facility] Polio (IPV/OPV) 2003-10-29 00:00:00 Completed [facility] DTP 2003-10-29 00:00:00 Completed [facility] Hep B, Adol or Pedi Dosage 2003-10-29 00:00:00 Completed [facility] Polio (IPV/OPV) 2003-10-29 00:00:00 Completed [facility] DTP 2003-10-29 00:00:00 Completed [facility] Hep B, Adol or Pedi Dosage 2003-10-29 00:00:00 Completed [facility] Polio (IPV/OPV) 2003-10-29 00:00:00 Completed [facility] DTP 2003-10-29 00:00:00 Completed [facility] Hep B, Adol or Pedi Dosage 2003-10-29 00:00:00 Completed [facility] Polio (IPV/OPV) 2003-10-29 00:00:00 Completed [facility] DTP 2003-10-29 00:00:00 Completed [facility] Hep B, Adol or Pedi Dosage 2003-10-29 00:00:00 Completed [facility] Polio (IPV/OPV) 2003-10-29 00:00:00 Completed [facility] DTP 2003-10-29 00:00:00 Completed [facility] Hep B, Adol or Pedi Dosage 2003-10-29 00:00:00 Completed [facility] Polio (IPV/OPV) 2003-10-29 00:00:00 Completed [facility] DTP 2003-10-29 00:00:00 Completed [facility] Hep B, Adol or Pedi Dosage 2003-10-29 00:00:00 Completed [facility] Polio (IPV/OPV) 2003-10-29 00:00:00 Completed [facility] DTP 2003-10-29 00:00:00 Completed [facility] Hep B, Adol or Pedi Dosage 2003-10-29 00:00:00 Completed [facility] Polio (IPV/OPV) 2003-10-29 00:00:00 Completed [facility] DTP 2003-10-29 00:00:00 Completed [facility] Hep B, Adol or Pedi Dosage 2003-10-29 00:00:00 Completed [facility] Polio (IPV/OPV) 2003-10-29 00:00:00 Completed [facility] DTP 2003-04-16 00:00:00 Completed [facility] HIB 3 Dose Schedule 2003-04-16 00:00:00 Completed [facility] Hep B, Adol or Pedi Dosage 2003-04-16 00:00:00 Completed [facility] MMR 2003-04-16 00:00:00 Completed [facility] Polio (IPV/OPV) 2003-04-16 00:00:00 Completed [facility] Varicella (varivax)(chicken pox) 2003-04-16 00:00:00 Completed [facility] DTP 2003-04-16 00:00:00 Completed [facility] HIB 3 Dose Schedule 2003-04-16 00:00:00 Completed [facility] Hep B, Adol or Pedi Dosage 2003-04-16 00:00:00 Completed [facility] MMR 2003-04-16 00:00:00 Completed [facility] Polio (IPV/OPV) 2003-04-16 00:00:00 Completed [facility] Varicella (varivax)(chicken pox) 2003-04-16 00:00:00 Completed [facility] DTP 2003-04-16 00:00:00 Completed [facility] HIB 3 Dose Schedule 2003-04-16 00:00:00 Completed [facility] Hep B, Adol or Pedi Dosage 2003-04-16 00:00:00 Completed [facility] MMR 2003-04-16 00:00:00 Completed [facility] Polio (IPV/OPV) 2003-04-16 00:00:00 Completed [facility] Varicella (varivax)(chicken pox) 2003-04-16 00:00:00 Completed [facility] DTP 2003-04-16 00:00:00 Completed [facility] HIB 3 Dose Schedule 2003-04-16 00:00:00 Completed [facility] Hep B, Adol or Pedi Dosage 2003-04-16 00:00:00 Completed [facility] MMR 2003-04-16 00:00:00 Completed [facility] Polio (IPV/OPV) 2003-04-16 00:00:00 Completed [facility] Varicella (varivax)(chicken pox) 2003-04-16 00:00:00 Completed [facility] DTP 2003-04-16 00:00:00 Completed [facility] HIB 3 Dose Schedule 2003-04-16 00:00:00 Completed [facility] Hep B, Adol or Pedi Dosage 2003-04-16 00:00:00 Completed [facility] MMR 2003-04-16 00:00:00 Completed [facility] Polio (IPV/OPV) 2003-04-16 00:00:00 Completed [facility] Varicella (varivax)(chicken pox) 2003-04-16 00:00:00 Completed [facility] DTP 2003-04-16 00:00:00 Completed [facility] HIB 3 Dose Schedule 2003-04-16 00:00:00 Completed [facility] Hep B, Adol or Pedi Dosage 2003-04-16 00:00:00 Completed [facility] MMR 2003-04-16 00:00:00 Completed [facility] Polio (IPV/OPV) 2003-04-16 00:00:00 Completed [facility] Varicella (varivax)(chicken pox) 2003-04-16 00:00:00 Completed [facility] DTP 2003-04-16 00:00:00 Completed [facility] HIB 3 Dose Schedule 2003-04-16 00:00:00 Completed [facility] Hep B, Adol or Pedi Dosage 2003-04-16 00:00:00 Completed [facility] MMR 2003-04-16 00:00:00 Completed [facility] Polio (IPV/OPV) 2003-04-16 00:00:00 Completed [facility] Varicella (varivax)(chicken pox) 2003-04-16 00:00:00 Completed [facility] DTP 2003-04-16 00:00:00 Completed [facility] HIB 3 Dose Schedule 2003-04-16 00:00:00 Completed [facility] Hep B, Adol or Pedi Dosage 2003-04-16 00:00:00 Completed [facility] MMR 2003-04-16 00:00:00 Completed [facility] Polio (IPV/OPV) 2003-04-16 00:00:00 Completed [facility] Varicella (varivax)(chicken pox) 2003-04-16 00:00:00 Completed [facility] DTP 2003-04-16 00:00:00 Completed [facility] HIB 3 Dose Schedule 2003-04-16 00:00:00 Completed [facility] Hep B, Adol or Pedi Dosage 2003-04-16 00:00:00 Completed [facility] MMR 2003-04-16 00:00:00 Completed [facility] Polio (IPV/OPV) 2003-04-16 00:00:00 Completed [facility] Varicella (varivax)(chicken pox) 2003-04-16 00:00:00 Completed [facility] DTP 2003-04-16 00:00:00 Completed [facility] HIB 3 Dose Schedule 2003-04-16 00:00:00 Completed [facility] Hep B, Adol or Pedi Dosage 2003-04-16 00:00:00 Completed [facility] MMR 2003-04-16 00:00:00 Completed [facility] Polio (IPV/OPV) 2003-04-16 00:00:00 Completed [facility] Varicella (varivax)(chicken pox) 2003-04-16 00:00:00 Completed [facility] DTP 2003-04-16 00:00:00 Completed [facility] HIB 3 Dose Schedule 2003-04-16 00:00:00 Completed [facility] Hep B, Adol or Pedi Dosage 2003-04-16 00:00:00 Completed [facility] MMR 2003-04-16 00:00:00 Completed [facility] Polio (IPV/OPV) 2003-04-16 00:00:00 Completed [facility] Varicella (varivax)(chicken pox) 2003-04-16 00:00:00 Completed [facility] DTP 2003-04-16 00:00:00 Completed [facility] HIB 3 Dose Schedule 2003-04-16 00:00:00 Completed [facility] Hep B, Adol or Pedi Dosage 2003-04-16 00:00:00 Completed [facility] MMR 2003-04-16 00:00:00 Completed [facility] Polio (IPV/OPV) 2003-04-16 00:00:00 Completed [facility] Varicella (varivax)(chicken pox) 2003-04-16 00:00:00 Completed [facility] DTP 2003-04-16 00:00:00 Completed [facility] HIB 3 Dose Schedule 2003-04-16 00:00:00 Completed [facility] Hep B, Adol or Pedi Dosage 2003-04-16 00:00:00 Completed [facility] MMR 2003-04-16 00:00:00 Completed [facility] Polio (IPV/OPV) 2003-04-16 00:00:00 Completed [facility] Varicella (varivax)(chicken pox) 2003-04-16 00:00:00 Completed [facility] DTP 2003-04-16 00:00:00 Completed [facility] HIB 3 Dose Schedule 2003-04-16 00:00:00 Completed [facility] Hep B, Adol or Pedi Dosage 2003-04-16 00:00:00 Completed [facility] MMR 2003-04-16 00:00:00 Completed [facility] Polio (IPV/OPV) 2003-04-16 00:00:00 Completed [facility] Varicella (varivax)(chicken pox) 2003-04-16 00:00:00 Completed [facility] DTP 2003-04-16 00:00:00 Completed [facility] HIB 3 Dose Schedule 2003-04-16 00:00:00 Completed [facility] Hep B, Adol or Pedi Dosage 2003-04-16 00:00:00 Completed [facility] MMR 2003-04-16 00:00:00 Completed [facility] Polio (IPV/OPV) 2003-04-16 00:00:00 Completed [facility] Varicella (varivax)(chicken pox) 2003-04-16 00:00:00 Completed [facility] DTP 2003-04-16 00:00:00 Completed [facility] HIB 3 Dose Schedule 2003-04-16 00:00:00 Completed [facility] Hep B, Adol or Pedi Dosage 2003-04-16 00:00:00 Completed [facility] MMR 2003-04-16 00:00:00 Completed [facility] Polio (IPV/OPV) 2003-04-16 00:00:00 Completed [facility] Varicella (varivax)(chicken pox) 2003-04-16 00:00:00 Completed [facility] DTP 2000 00:00:00 Completed [facility] HIB 3 Dose Schedule 2000 00:00:00 Completed [facility] Hep B, Adol or Pedi Dosage 2000 00:00:00 Completed [facility] Polio (IPV/OPV) 2000 00:00:00 Completed [facility] DTP 2000 00:00:00 Completed [facility] HIB 3 Dose Schedule 2000 00:00:00 Completed [facility] Hep B, Adol or Pedi Dosage 2000 00:00:00 Completed [facility] Polio (IPV/OPV) 2000 00:00:00 Completed [facility] DTP 2000 00:00:00 Completed [facility] HIB 3 Dose Schedule 2000 00:00:00 Completed [facility] Hep B, Adol or Pedi Dosage 2000 00:00:00 Completed [facility] Polio (IPV/OPV) 2000 00:00:00 Completed [facility] DTP 2000 00:00:00 Completed [facility] HIB 3 Dose Schedule 2000 00:00:00 Completed [facility] Hep B, Adol or Pedi Dosage 2000 00:00:00 Completed [facility] Polio (IPV/OPV) 2000 00:00:00 Completed [facility] DTP 2000 00:00:00 Completed [facility] HIB 3 Dose Schedule 2000 00:00:00 Completed [facility] Hep B, Adol or Pedi Dosage 2000 00:00:00 Completed [facility] Polio (IPV/OPV) 2000 00:00:00 Completed [facility] DTP 2000 00:00:00 Completed [facility] HIB 3 Dose Schedule 2000 00:00:00 Completed [facility] Hep B, Adol or Pedi Dosage 2000 00:00:00 Completed [facility] Polio (IPV/OPV) 2000 00:00:00 Completed [facility] DTP 2000 00:00:00 Completed [facility] HIB 3 Dose Schedule 2000 00:00:00 Completed [facility] Hep B, Adol or Pedi Dosage 2000 00:00:00 Completed [facility] Polio (IPV/OPV) 2000 00:00:00 Completed [facility] DTP 2000 00:00:00 Completed [facility] HIB 3 Dose Schedule 2000 00:00:00 Completed [facility] Hep B, Adol or Pedi Dosage 2000 00:00:00 Completed [facility] Polio (IPV/OPV) 2000 00:00:00 Completed [facility] DTP 2000 00:00:00 Completed [facility] HIB 3 Dose Schedule 2000 00:00:00 Completed [facility] Hep B, Adol or Pedi Dosage 2000 00:00:00 Completed [facility] Polio (IPV/OPV) 2000 00:00:00 Completed [facility] DTP 2000 00:00:00 Completed [facility] HIB 3 Dose Schedule 2000 00:00:00 Completed [facility] Hep B, Adol or Pedi Dosage 2000 00:00:00 Completed [facility] Polio (IPV/OPV) 2000 00:00:00 Completed [facility] DTP 2000 00:00:00 Completed [facility] HIB 3 Dose Schedule 2000 00:00:00 Completed [facility] Hep B, Adol or Pedi Dosage 2000 00:00:00 Completed [facility] Polio (IPV/OPV) 2000 00:00:00 Completed [facility] DTP 2000 00:00:00 Completed [facility] HIB 3 Dose Schedule 2000 00:00:00 Completed [facility] Hep B, Adol or Pedi Dosage 2000 00:00:00 Completed [facility] Polio (IPV/OPV) 2000 00:00:00 Completed [facility] DTP 2000 00:00:00 Completed [facility] HIB 3 Dose Schedule 2000 00:00:00 Completed [facility] Hep B, Adol or Pedi Dosage 2000 00:00:00 Completed [facility] Polio (IPV/OPV) 2000 00:00:00 Completed [facility] DTP 2000 00:00:00 Completed [facility] HIB 3 Dose Schedule 2000 00:00:00 Completed [facility] Hep B, Adol or Pedi Dosage 2000 00:00:00 Completed [facility] Polio (IPV/OPV) 2000 00:00:00 Completed [facility] DTP 2000 00:00:00 Completed [facility] HIB 3 Dose Schedule 2000 00:00:00 Completed [facility] Hep B, Adol or Pedi Dosage 2000 00:00:00 Completed [facility] Polio (IPV/OPV) 2000 00:00:00 Completed [facility] DTP 2000 00:00:00 Completed [facility] HIB 3 Dose Schedule 2000 00:00:00 Completed [facility] Hep B, Adol or Pedi Dosage 2000 00:00:00 Completed [facility] Polio (IPV/OPV) 2000 00:00:00 Completed [facility] Hep B, Adol or Pedi Dosage 2000 00:00:00 Completed [facility] Hep B, Adol or Pedi Dosage 2000 00:00:00 Completed [facility] Hep B, Adol or Pedi Dosage 2000 00:00:00 Completed [facility] Hep B, Adol or Pedi Dosage 2000 00:00:00 Completed [facility] Hep B, Adol or Pedi Dosage 2000 00:00:00 Completed [facility] Hep B, Adol or Pedi Dosage 2000 00:00:00 Completed [facility] Hep B, Adol or Pedi Dosage 2000 00:00:00 Completed [facility] Hep B, Adol or Pedi Dosage 2000 00:00:00 Completed [facility] Hep B, Adol or Pedi Dosage 2000 00:00:00 Completed [facility] Hep B, Adol or Pedi Dosage 2000 00:00:00 Completed [facility] Hep B, Adol or Pedi Dosage 2000 00:00:00 Completed [facility] Hep B, Adol or Pedi Dosage 2000 00:00:00 Completed [facility] Hep B, Adol or Pedi Dosage 2000 00:00:00 Completed [facility] Hep B, Adol or Pedi Dosage 2000 00:00:00 Completed [facility] Hep B, Adol or Pedi Dosage 2000 00:00:00 Completed [facility] Hep B, Adol or Pedi Dosage 2000 00:00:00 Completed [facility] TDAP (ADACEL) VACCINE Unknown Completed [facility] DTP Unknown Completed [facility] DTP Unknown Completed [facility] DTP Unknown Completed [facility] DTP Unknown Completed [facility] HIB 3 Dose Schedule Unknown Completed [facility] HIB 3 Dose Schedule Unknown Completed [facility] Hep B, Adol or Pedi Dosage Unknown Completed [facility] Hep B, Adol or Pedi Dosage Unknown Completed [facility] Hep B, Adol or Pedi Dosage Unknown Completed [facility] Hep B, Adol or Pedi Dosage Unknown Completed [facility] HPV Unknown Completed [facility] HPV Unknown Completed [facility] Meningococcal Vaccine Unknown Completed [facility] Meningococcal Vaccine Unknown Completed [facility] MMR Unknown Completed [facility] MMR Unknown Completed [facility] Polio (IPV/OPV) Unknown Completed [facility] Polio (IPV/OPV) Unknown Completed [facility] Polio (IPV/OPV) Unknown Completed [facility] Polio (IPV/OPV) Unknown Completed [facility] Varicella (varivax)(chicken pox) Unknown Completed [facility] Varicella (varivax)(chicken pox) Unknown Completed [facility] Meningococcal B, OMV Unknown Completed [facility] Influenza Virus Vaccine Quad .5 mL IM 6+ MO (FLUZONE/FLULAVAL/F LUARIX) Unknown Completed [facility] TDAP Unknown Completed [facility] TDAP (ADACEL) VACCINE Unknown Completed [facility] DTP Unknown Completed [facility] DTP Unknown Completed [facility] DTP Unknown Completed [facility] DTP Unknown Completed [facility] HIB 3 Dose Schedule Unknown Completed [facility] HIB 3 Dose Schedule Unknown Completed [facility] Hep B, Adol or Pedi Dosage Unknown Completed [facility] Hep B, Adol or Pedi Dosage Unknown Completed [facility] Hep B, Adol or Pedi Dosage Unknown Completed [facility] Hep B, Adol or Pedi Dosage Unknown Completed [facility] HPV Unknown Completed [facility] HPV Unknown Completed [facility] Meningococcal Vaccine Unknown Completed [facility] Meningococcal Vaccine Unknown Completed [facility] MMR Unknown Completed [facility] MMR Unknown Completed [facility] Polio (IPV/OPV) Unknown Completed [facility] Polio (IPV/OPV) Unknown Completed [facility] Polio (IPV/OPV) Unknown Completed [facility] Polio (IPV/OPV) Unknown Completed [facility] Varicella (varivax)(chicken pox) Unknown Completed [facility] Varicella (varivax)(chicken pox) Unknown Completed [facility] Meningococcal B, OMV Unknown Completed [facility] Influenza Virus Vaccine Quad .5 mL IM 6+ MO (FLUZONE/FLULAVAL/F LUARIX) Unknown Completed [facility] TDAP Unknown Completed [facility] TDAP (ADACEL) VACCINE Unknown Completed [facility] DTP Unknown Completed [facility] DTP Unknown Completed [facility] DTP Unknown Completed [facility] DTP Unknown Completed [facility] HIB 3 Dose Schedule Unknown Completed [facility] HIB 3 Dose Schedule Unknown Completed [facility] Hep B, Adol or Pedi Dosage Unknown Completed [facility] Hep B, Adol or Pedi Dosage Unknown Completed [facility] Hep B, Adol or Pedi Dosage Unknown Completed [facility] Hep B, Adol or Pedi Dosage Unknown Completed [facility] HPV Unknown Completed [facility] HPV Unknown Completed [facility] Meningococcal Vaccine Unknown Completed [facility] Meningococcal Vaccine Unknown Completed [facility] MMR Unknown Completed [facility] MMR Unknown Completed [facility] Polio (IPV/OPV) Unknown Completed [facility] Polio (IPV/OPV) Unknown Completed [facility] Polio (IPV/OPV) Unknown Completed [facility] Polio (IPV/OPV) Unknown Completed [facility] Varicella (varivax)(chicken pox) Unknown Completed [facility] Varicella (varivax)(chicken pox) Unknown Completed [facility] Meningococcal B, OMV Unknown Completed [facility] Influenza Virus Vaccine Quad .5 mL IM 6+ MO (FLUZONE/FLULAVAL/F LUARIX) Unknown Completed [facility] TDAP Unknown Completed [facility] SARS-COV-2 COVID-19 PFIZER VACCINE Unknown Completed [facility] TDAP (ADACEL) VACCINE Unknown Completed [facility] DTP Unknown Completed [facility] DTP Unknown Completed [facility] DTP Unknown Completed [facility] DTP Unknown Completed [facility] HIB 3 Dose Schedule Unknown Completed [facility] HIB 3 Dose Schedule Unknown Completed [facility] Hep B, Adol or Pedi Dosage Unknown Completed [facility] Hep B, Adol or Pedi Dosage Unknown Completed [facility] Hep B, Adol or Pedi Dosage Unknown Completed [facility] Hep B, Adol or Pedi Dosage Unknown Completed [facility] HPV Unknown Completed [facility] HPV Unknown Completed [facility] Meningococcal Vaccine Unknown Completed [facility] Meningococcal Vaccine Unknown Completed [facility] MMR Unknown Completed [facility] MMR Unknown Completed [facility] Polio (IPV/OPV) [facility]) [facility] Pol[facility] ([facility]/OPV[facility] Unknown Completed [facility] Polio (IPV/OPV) Unknown Completed [facility] Varicella (varivax)(chicken pox) Unknown Completed [facility] Varicella (varivax)(chicken pox) Unknown Completed [facility] Meningococcal B, OMV Unknown Completed [facility] Influenza Virus Vaccine Quad .5 mL IM 6+ MO (FLUZONE/FLULAVAL/F LUARIX) Unknown Completed [facility] TDAP Unknown Completed [facility] SARS-COV-2 COVID-19 PFIZER VACCINE Unknown Completed [facility] TDAP (ADACEL) VACCINE Unknown Completed [facility] DTP Unknown Completed [facility] DTP Unknown Completed [facility] DTP Unknown Completed [facility] DTP Unknown Completed [facility] HIB 3 Dose Schedule Unknown Completed [facility] HIB 3 Dose Schedule Unknown Completed [facility] Hep B, Adol or Pedi Dosage Unknown Completed [facility] Hep B, Adol or Pedi Dosage Unknown Completed [facility] Hep B, Adol or Pedi Dosage Unknown Completed [facility] Hep B, Adol or Pedi Dosage Unknown Completed [facility] HPV Unknown Completed [facility] HPV Unknown Completed [facility] Meningococcal Vaccine Unknown Completed [facility] Meningococcal Vaccine Unknown Completed [facility] MMR Unknown Completed [facility] MMR Unknown Completed [facility] Polio (IPV/OPV) Unknown Completed [facility] Polio (IPV/OPV) Unknown Completed [facility] Polio (IPV/OPV) Unknown [facility] ([facility]/OPV) Unknown Completed [facility] Varicella (varivax)(chicken pox) Unknown Completed [facility] Varicella (varivax)(chicken pox) Unknown Completed [facility] Meningococcal B, OMV Unknown Completed [facility] Influenza Virus Vaccine Quad .5 mL IM 6+ MO (FLUZONE/FLULAVAL/F LUARIX) Unknown Completed [facility] TDAP Unknown Completed [facility] SARS-COV-2 COVID-19 PFIZER VACCINE Unknown Completed [facility] TDAP (ADACEL) VACCINE Unknown Completed [facility] DTP Unknown Completed [facility] DTP Unknown Completed [facility] DTP Unknown Completed [facility] DTP Unknown Completed [facility] HIB 3 Dose Schedule Unknown Completed [facility] HIB 3 Dose Schedule Unknown Completed [facility] Hep B, Adol or Pedi Dosage Unknown Completed [facility] Hep B, Adol or Pedi Dosage Unknown Completed [facility] Hep B, Adol or Pedi Dosage Unknown Completed [facility] Hep B, Adol or Pedi Dosage Unknown Completed [facility] HPV Unknown Completed [facility] HPV Unknown Completed [facility] Meningococcal Vaccine Unknown Completed [facility] Meningococcal Vaccine Unknown Completed [facility] MMR Unknown Completed [facility] MMR Unknown Completed [facility] Polio (IPV/OPV) Unknown Completed [facility] Polio (IPV/OPV) Unknown Completed [facility] Polio (IPV/OPV) Unknown Completed [facility] Polio (IPV/OPV) Unknown Completed [facility] Varicella (varivax)(chicken pox) Unknown Completed [facility] Varicella (varivax)(chicken pox) Unknown Completed [facility] Meningococcal B, OMV Unknown Completed [facility] Influenza Virus Vaccine Quad .5 mL IM 6+ MO (FLUZONE/FLULAVAL/F LUARIX) Unknown Completed [facility] TDAP Unknown Completed [facility] SARS-COV-2 COVID-19 PFIZER VACCINE Unknown Completed [facility] TDAP (ADACEL) VACCINE Unknown Completed [facility] DTP Unknown Completed [facility] DTP Unknown Completed [facility] DTP Unknown Completed [facility] DTP Unknown Completed [facility] HIB 3 Dose Schedule Unknown Completed [facility] HIB 3 Dose Schedule Unknown Completed [facility] Hep B, Adol or Pedi Dosage Unknown Completed [facility] Hep B, Adol or Pedi Dosage Unknown Completed [facility] Hep B, Adol or Pedi Dosage Unknown Completed [facility] Hep B, Adol or Pedi Dosage Unknown Completed [facility] HPV Unknown Completed [facility] HPV Unknown Completed [facility] Meningococcal Vaccine Unknown Completed [facility] Meningococcal Vaccine Unknown Completed [facility] MMR Unknown Completed [facility] MMR Unknown Completed [facility] Polio (IPV/OPV) Unknown Completed [facility] Polio (IPV/OPV) Unknown Completed [facility] Polio (IPV/OPV) Unknown Completed [facility] Polio (IPV/OPV) Unknown Completed [facility] Varicella (varivax)(chicken pox) Unknown Completed [facility] Varicella (varivax)(chicken pox) Unknown Completed [facility] Meningococcal B, OMV Unknown Completed [facility] Influenza Virus Vaccine Quad .5 mL IM 6+ MO (FLUZONE/FLULAVAL/F LUARIX) Unknown Completed [facility] TDAP Unknown Completed [facility] SARS-COV-2 COVID-19 PFIZER VACCINE Unknown Completed [facility] TDAP (ADACEL) VACCINE Unknown Completed [facility] DTP Unknown Completed [facility] DTP Unknown Completed [facility] DTP Unknown Completed [facility] DTP Unknown Completed [facility] HIB 3 Dose Schedule Unknown Completed [facility] HIB 3 Dose Schedule Unknown Completed [facility] Hep B, Adol or Pedi Dosage Unknown Completed [facility] Hep B, Adol or Pedi Dosage Unknown Completed [facility] Hep B, Adol or Pedi Dosage Unknown Completed [facility] Hep B, Adol or Pedi Dosage Unknown Completed [facility] HPV Unknown Completed [facility] HPV Unknown Completed [facility] Meningococcal Vaccine Unknown Completed [facility] Meningococcal Vaccine Unknown Completed [facility] MMR Unknown Completed [facility] MMR Unknown Completed [facility] Polio (IPV/OPV) Unknown Completed [facility] Polio (IPV/OPV) Unknown Completed [facility] Polio (IPV/OPV) Unknown Completed [facility] Polio (IPV/OPV) Unknown Completed [facility] Varicella (varivax)(chicken pox) Unknown Completed [facility] Varicella (varivax)(chicken pox) Unknown Completed [facility] Meningococcal B, OMV Unknown Completed [facility] Influenza Virus Vaccine Quad .5 mL IM 6+ MO (FLUZONE/FLULAVAL/F LUARIX) Unknown Completed [facility] TDAP Unknown Completed [facility] SARS-COV-2 COVID-19 PFIZER VACCINE Unknown Completed [facility] TDAP (ADACEL) VACCINE Unknown Completed [facility] DTP Unknown Completed [facility] DTP Unknown Completed [facility] DTP Unknown Completed [facility] DTP Unknown Completed [facility] HIB 3 Dose Schedule Unknown Completed [facility] HIB 3 Dose Schedule Unknown Completed [facility] Hep B, Adol or Pedi Dosage Unknown Completed [facility] Hep B, Adol or Pedi Dosage Unknown Completed [facility] Hep B, Adol or Pedi Dosage Unknown Completed [facility] Hep B, Adol or Pedi Dosage Unknown Completed [facility] HPV Unknown Completed [facility] HPV Unknown Completed [facility] Meningococcal Vaccine Unknown Completed [facility] Meningococcal Vaccine Unknown Completed [facility] MMR Unknown Completed [facility] MMR Unknown Completed [facility] Polio (IPV/OPV) Unknown Completed [facility] Polio (IPV/OPV) Unknown Completed [facility] Polio (IPV/OPV) Unknown Completed [facility] Polio (IPV/OPV) Unknown Completed [facility] Varicella (varivax)(chicken pox) Unknown Completed [facility] Varicella (varivax)(chicken pox) Unknown Completed [facility] Meningococcal B, OMV Unknown Completed [facility] Influenza Virus Vaccine Quad .5 mL IM 6+ MO (FLUZONE/FLULAVAL/F LUARIX) Unknown Completed [facility] TDAP Unknown Completed [facility] SARS-COV-2 COVID-19 PFIZER VACCINE Unknown Completed [facility] Influenza Virus Vaccine Quad IM, Preserv and ABX Free 6 MO-64 YRS (FLUCELVAX) Unknown Completed [facility] TDAP (ADACEL) VACCINE Unknown Completed [facility] DTP Unknown Completed [facility] DTP Unknown Completed [facility] DTP Unknown Completed [facility] DTP Unknown Completed [facility] HIB 3 Dose Schedule Unknown Completed [facility] HIB 3 Dose Schedule Unknown Completed [facility] Hep B, Adol or Pedi Dosage Unknown Completed [facility] Hep B, Adol or Pedi Dosage Unknown Completed [facility] Hep B, Adol or Pedi Dosage Unknown Completed [facility] Hep B, Adol or Pedi Dosage Unknown Completed [facility] HPV Unknown Completed [facility] HPV Unknown Completed [facility] Meningococcal Vaccine Unknown Completed [facility] Meningococcal Vaccine Unknown Completed [facility] MMR Unknown Completed [facility] MMR Unknown Completed [facility] Polio (IPV/OPV) Unknown Completed [facility] Polio (IPV/OPV) Unknown Completed [facility] Polio (IPV/OPV) Unknown Completed [facility] Polio (IPV/OPV) Unknown Completed [facility] Varicella (varivax)(chicken pox) Unknown Completed [facility] Varicella (varivax)(chicken pox) Unknown Completed [facility] Meningococcal B, OMV Unknown Completed [facility] Influenza Virus Vaccine Quad .5 mL IM 6+ MO (FLUZONE/FLULAVAL/F LUARIX) Unknown Completed [facility] TDAP Unknown Completed [facility] SARS-COV-2 COVID-19 PFIZER VACCINE Unknown Completed [facility] Influenza Virus Vaccine Quad IM, Preserv and ABX Free 6 MO-64 YRS (FLUCELVAX) Unknown Completed [facility] TDAP (ADACEL) VACCINE Unknown Completed [facility] DTP Unknown Completed [facility] DTP Unknown Completed [facility] DTP Unknown Completed [facility] DTP Unknown Completed [facility] HIB 3 Dose Schedule Unknown Completed [facility] HIB 3 Dose Schedule Unknown Completed [facility] Hep B, Adol or Pedi Dosage Unknown Completed [facility] Hep B, Adol or Pedi Dosage Unknown Completed [facility] Hep B, Adol or Pedi Dosage Unknown Completed [facility] Hep B, Adol or Pedi Dosage Unknown Completed [facility] HPV Unknown Completed [facility] HPV Unknown Completed [facility] Meningococcal Vaccine Unknown Completed [facility] Meningococcal Vaccine Unknown Completed [facility] MMR Unknown Completed [facility] MMR Unknown Completed [facility] Polio (IPV/OPV) Unknown Completed [facility] Polio (IPV/OPV) Unknown Completed [facility] Polio (IPV/OPV) Unknown Completed [facility] Polio (IPV/OPV) Unknown Completed [facility] Varicella (varivax)(chicken pox) Unknown Completed [facility] Varicella (varivax)(chicken pox) Unknown Completed [facility] Meningococcal B, OMV Unknown Completed [facility] Influenza Virus Vaccine Quad .5 mL IM 6+ MO (FLUZONE/FLULAVAL/F LUARIX) Unknown Completed [facility] TDAP Unknown Completed [facility] SARS-COV-2 COVID-19 PFIZER VACCINE Unknown Completed [facility] Influenza Virus Vaccine Quad IM, Preserv and ABX Free 6 MO-64 YRS (FLUCELVAX) Unknown Completed [facility] TDAP (ADACEL) VACCINE Unknown Completed [facility] DTP Unknown Completed [facility] DTP Unknown Completed [facility] DTP Unknown Completed [facility] DTP Unknown Completed [facility] HIB 3 Dose Schedule Unknown Completed [facility] HIB 3 Dose Schedule Unknown Completed [facility] Hep B, Adol or Pedi Dosage Unknown Completed [facility] Hep B, Adol or Pedi Dosage Unknown Completed [facility] Hep B, Adol or Pedi Dosage Unknown Completed [facility] Hep B, Adol or Pedi Dosage Unknown Completed [facility] HPV Unknown Completed [facility] HPV Unknown Completed [facility] Meningococcal Vaccine Unknown Completed [facility] Meningococcal Vaccine Unknown Completed [facility] MMR Unknown Completed [facility] MMR Unknown Completed [facility] Polio (IPV/OPV) Unknown Completed [facility] Polio (IPV/OPV) Unknown Completed [facility] Polio (IPV/OPV) Unknown Completed [facility] Polio (IPV/OPV) Unknown Completed [facility] Varicella (varivax)(chicken pox) Unknown Completed [facility] Varicella (varivax)(chicken pox) Unknown Completed [facility] Meningococcal B, OMV Unknown Completed [facility] Influenza Virus Vaccine Quad .5 mL IM 6+ MO (FLUZONE/FLULAVAL/F LUARIX) Unknown Completed [facility] TDAP Unknown Completed [facility] SARS-COV-2 COVID-19 PFIZER VACCINE Unknown Completed [facility] Influenza Virus Vaccine Quad IM, Preserv and ABX Free 6 MO-64 YRS (FLUCELVAX) Unknown Completed [facility] TDAP (ADACEL) VACCINE Unknown Completed [facility] DTP Unknown Completed [facility] DTP Unknown Completed [facility] DTP Unknown Completed [facility] DTP Unknown Completed [facility] HIB 3 Dose Schedule Unknown Completed [facility] HIB 3 Dose Schedule Unknown Completed [facility] Hep B, Adol or Pedi Dosage Unknown Completed [facility] Hep B, Adol or Pedi Dosage Unknown Completed [facility] Hep B, Adol or Pedi Dosage Unknown Completed [facility] Hep B, Adol or Pedi Dosage Unknown Completed [facility] HPV Unknown Completed [facility] HPV Unknown Completed [facility] Meningococcal Vaccine Unknown Completed [facility] Meningococcal Vaccine Unknown Completed [facility] MMR Unknown Completed [facility] MMR Unknown Completed [facility] Polio (IPV/OPV) Unknown [facility] Completed [facility] Polio (IPV/OPV) Unknown Completed [facility] Polio (IPV/OPV) Unknown Completed [facility] Varicella (varivax)(chicken pox) Unknown Completed [facility] Varicella (varivax)(chicken pox) Unknown Completed [facility] Meningococcal B, OMV Unknown Completed [facility] Influenza Virus Vaccine Quad .5 mL IM 6+ MO (FLUZONE/FLULAVAL/F LUARIX) Unknown Completed [facility] TDAP Unknown Completed [facility] SARS-COV-2 COVID-19 PFIZER VACCINE Unknown Completed [facility] Influenza Virus Vaccine Quad IM, Preserv and ABX Free 6 MO-64 YRS (FLUCELVAX) Unknown Completed [facility] TDAP (ADACEL) VACCINE Unknown Completed [facility] DTP Unknown Completed [facility] DTP Unknown Completed [facility] DTP Unknown Completed [facility] DTP Unknown Completed [facility] HIB 3 Dose Schedule Unknown Completed [facility] HIB 3 Dose Schedule Unknown Completed [facility] Hep B, Adol or Pedi Dosage Unknown Completed [facility] Hep B, Adol or Pedi Dosage Unknown Completed [facility] Hep B, Adol or Pedi Dosage Unknown Completed [facility] Hep B, Adol or Pedi Dosage Unknown Completed [facility] HPV Unknown Completed [facility] HPV Unknown Completed [facility] Meningococcal Vaccine Unknown Completed [facility] Meningococcal Vaccine Unknown Completed [facility] MMR Unknown Completed [facility] MMR Unknown Completed [facility] Polio (IPV/OPV) Unknown Completed [facility] Polio (IPV/OPV) Unknown Completed [facility] Polio (IPV/OPV) Unknown Completed [facility] Polio (IPV/OPV) Unknown Completed [facility] Varicella (varivax)(chicken pox) Unknown Completed [facility] Varicella (varivax)(chicken pox) Unknown Completed [facility] Meningococcal B, OMV Unknown Completed [facility] Influenza Virus Vaccine Quad .5 mL IM 6+ MO (FLUZONE/FLULAVAL/F LUARIX) Unknown Completed [facility] TDAP Unknown Completed [facility] SARS-COV-2 COVID-19 PFIZER VACCINE Unknown Completed [facility] Influenza Virus Vaccine Quad IM, Preserv and ABX Free 6 MO-64 YRS (FLUCELVAX) Unknown Completed [facility] TDAP (ADACEL) VACCINE Unknown Completed [facility] DTP Unknown Completed [facility] DTP Unknown Completed [facility] DTP Unknown Completed [facility] DTP Unknown Completed [facility] HIB 3 Dose Schedule Unknown Completed [facility] HIB 3 Dose Schedule Unknown Completed [facility] Hep B, Adol or Pedi Dosage Unknown Completed [facility] Hep B, Adol or Pedi Dosage Unknown Completed [facility] Hep B, Adol or Pedi Dosage Unknown Completed [facility] Hep B, Adol or Pedi Dosage Unknown Completed [facility] HPV Unknown Completed [facility] HPV Unknown Completed [facility] Meningococcal Vaccine Unknown Completed [facility] Meningococcal Vaccine Unknown Completed [facility] MMR Unknown Completed [facility] MMR Unknown Completed [facility] Polio (IPV/OPV) Unknown Completed [facility] Polio (IPV/OPV) Unknown Completed [facility] Polio (IPV/OPV) Unknown Completed [facility] Polio (IPV/OPV) Unknown Completed [facility] Varicella (varivax)(chicken pox) Unknown Completed [facility] Varicella (varivax)(chicken pox) Unknown Completed [facility] Meningococcal B, OMV Unknown Completed [facility] Influenza Virus Vaccine Quad .5 mL IM 6+ MO (FLUZONE/FLULAVAL/F LUARIX) Unknown Completed [facility] TDAP Unknown Completed [facility] SARS-COV-2 COVID-19 PFIZER VACCINE Unknown Completed [facility] Influenza Virus Vaccine Quad IM, Preserv and ABX Free 6 MO-64 YRS (FLUCELVAX) Unknown Completed [facility] TDAP (ADACEL) VACCINE Unknown Completed [facility] DTP Unknown Completed [facility] DTP Unknown Completed [facility] DTP Unknown Completed [facility] DTP Unknown Completed [facility] HIB 3 Dose Schedule Unknown Completed [facility] HIB 3 Dose Schedule Unknown Completed [facility] Hep B, Adol or Pedi Dosage Unknown Completed [facility] Hep B, Adol or Pedi Dosage Unknown Completed [facility] Hep B, Adol or Pedi Dosage Unknown Completed [facility] Hep B, Adol or Pedi Dosage Unknown Completed [facility] HPV Unknown Completed [facility] HPV Unknown Completed [facility] Meningococcal Vaccine Unknown Completed [facility] Meningococcal Vaccine Unknown Completed [facility] MMR Unknown Completed [facility] MMR Unknown Completed [facility] Polio (IPV/OPV) Unknown Completed [facility] Polio (IPV/OPV) Unknown Completed [facility] Polio (IPV/OPV) Unknown Completed [facility] Polio (IPV/OPV) Unknown Completed [facility] Varicella (varivax)(chicken pox) Unknown Completed [facility] Varicella (varivax)(chicken pox) Unknown Completed [facility] Meningococcal B, OMV Unknown Completed [facility] Influenza Virus Vaccine Quad .5 mL IM 6+ MO (FLUZONE/FLULAVAL/F LUARIX) Unknown Completed [facility] TDAP Unknown Completed [facility] SARS-COV-2 COVID-19 PFIZER VACCINE Unknown Completed [facility] Influenza Virus Vaccine Quad IM, Preserv and ABX Free 6 MO-64 YRS (FLUCELVAX) Unknown Completed [facility] TDAP (ADACEL) VACCINE Unknown Completed [facility] DTP Unknown Completed [facility] DTP Unknown Completed [facility] DTP Unknown Completed [facility] DTP Unknown Completed [facility] HIB 3 Dose Schedule Unknown Completed [facility] HIB 3 Dose Schedule Unknown Completed [facility] Hep B, Adol or Pedi Dosage Unknown Completed [facility] Hep B, Adol or Pedi Dosage Unknown Completed [facility] Hep B, Adol or Pedi Dosage Unknown Completed [facility] Hep B, Adol or Pedi Dosage Unknown Completed [facility] HPV Unknown Completed [facility] HPV Unknown Completed [facility] Meningococcal Vaccine Unknown Completed [facility] Meningococcal Vaccine Unknown Completed [facility] MMR Unknown Completed [facility] MMR Unknown Completed [facility] Polio (IPV/OPV) Unknown Completed [facility] Polio (IPV/OPV) Unknown Completed [facility] Polio (IPV/OPV) Unknown Completed [facility] Polio (IPV/OPV) Unknown Completed [facility] Varicella (varivax)(chicken pox) Unknown Completed [facility] Varicella (varivax)(chicken pox) Unknown Completed [facility] Meningococcal B, OMV Unknown Completed [facility] Influenza Virus Vaccine Quad .5 mL IM 6+ MO (FLUZONE/FLULAVAL/F LUARIX) Unknown Completed [facility] TDAP Unknown Completed [facility] SARS-COV-2 COVID-19 PFIZER VACCINE Unknown Completed [facility] Influenza Virus Vaccine Quad IM, Preserv and ABX Free 6 MO-64 YRS (FLUCELVAX) Unknown Completed [facility] TDAP (ADACEL) VACCINE Unknown Completed [facility] DTP Unknown Completed [facility] DTP Unknown Completed [facility] DTP Unknown Completed [facility] DTP Unknown Completed [facility] HIB 3 Dose Schedule Unknown Completed [facility] HIB 3 Dose Schedule Unknown Completed [facility] Hep B, Adol or Pedi Dosage Unknown Completed [facility] Hep B, Adol or Pedi Dosage Unknown Completed [facility] Hep B, Adol or Pedi Dosage Unknown Completed [facility] Hep B, Adol or Pedi Dosage Unknown Completed [facility] HPV Unknown Completed [facility] HPV Unknown Completed [facility] Meningococcal Vaccine Unknown Completed [facility] Meningococcal Vaccine Unknown Completed [facility] MMR Unknown Completed [facility] MMR Unknown Completed [facility] Polio (IPV/OPV) Unknown Completed [facility] Polio (IPV/OPV) Unknown Completed [facility] Polio (IPV/OPV) Unknown Completed [facility] Polio (IPV/OPV) Unknown Completed [facility] Varicella (varivax)(chicken pox) Unknown Completed [facility] Varicella (varivax)(chicken pox) Unknown Completed [facility] Meningococcal B, OMV Unknown Completed [facility] Influenza Virus Vaccine Quad .5 mL IM 6+ MO (FLUZONE/FLULAVAL/F LUARIX) Unknown Completed [facility] TDAP Unknown Completed [facility] SARS-COV-2 COVID-19 PFIZER VACCINE Unknown Completed [facility] Influenza Virus Vaccine Quad IM, Preserv and ABX Free 6 MO-64 YRS (FLUCELVAX) Unknown Completed [facility] TDAP (ADACEL) VACCINE Unknown Completed [facility] DTP Unknown Completed [facility] DTP Unknown Completed [facility] DTP Unknown Completed [facility] DTP Unknown Completed [facility] HIB 3 Dose Schedule Unknown Completed [facility] HIB 3 Dose Schedule Unknown Completed [facility] Hep B, Adol or Pedi Dosage Unknown Completed [facility] Hep B, Adol or Pedi Dosage Unknown Completed [facility] Hep B, Adol or Pedi Dosage Unknown Completed [facility] Hep B, Adol or Pedi Dosage Unknown Completed [facility] HPV Unknown Completed [facility] HPV Unknown Completed [facility] Meningococcal Vaccine Unknown Completed [facility] Meningococcal Vaccine Unknown Completed [facility] MMR Unknown Completed [facility] MMR Unknown Completed [facility] Polio (IPV/OPV) Unknown Completed [facility] Polio (IPV/OPV) Unknown Completed [facility] Polio (IPV/OPV) Unknown Completed [facility] Polio (IPV/OPV) Unknown Completed [facility] Varicella (varivax)(chicken pox) Unknown Completed [facility] Varicella (varivax)(chicken pox) Unknown Completed [facility] Meningococcal B, OMV Unknown Completed [facility] Influenza Virus Vaccine Quad .5 mL IM 6+ MO (FLUZONE/FLULAVAL/F LUARIX) Unknown Completed [facility] TDAP Unknown Completed [facility] SARS-COV-2 COVID-19 PFIZER VACCINE Unknown Completed [facility] Influenza Virus Vaccine Quad IM, Preserv and ABX Free 6 MO-64 YRS (FLUCELVAX) Unknown Completed [facility] TDAP (ADACEL) VACCINE Unknown Completed [facility] DTP Unknown Completed [facility] DTP Unknown Completed [facility] DTP Unknown Completed [facility] DTP Unknown Completed [facility] HIB 3 Dose Schedule Unknown Completed [facility] HIB 3 Dose Schedule Unknown Completed [facility] Hep B, Adol or Pedi Dosage Unknown Completed [facility] Hep B, Adol or Pedi Dosage Unknown Completed [facility] Hep B, Adol or Pedi Dosage Unknown Completed [facility] Hep B, Adol or Pedi Dosage Unknown Completed [facility] HPV Unknown Completed [facility] HPV Unknown Completed [facility] Meningococcal Vaccine Unknown Completed [facility] Meningococcal Vaccine Unknown Completed [facility] MMR Unknown Completed [facility] MMR Unknown Completed [facility] Polio (IPV/OPV) Unknown Completed [facility] Polio (IPV/OPV) Unknown Completed [facility] Polio (IPV/OPV) Unknown Completed [facility] Polio (IPV/OPV) Unknown Completed [facility] Varicella (varivax)(chicken pox) Unknown Completed [facility] Varicella (varivax)(chicken pox) Unknown Completed [facility] Meningococcal B, OMV Unknown Completed [facility] Influenza Virus Vaccine Quad .5 mL IM 6+ MO (FLUZONE/FLULAVAL/F LUARIX) Unknown Completed [facility] TDAP Unknown Completed [facility] SARS-COV-2 COVID-19 PFIZER VACCINE Unknown Completed [facility] Influenza Virus Vaccine Quad IM, Preserv and ABX Free 6 MO-64 YRS (FLUCELVAX) Unknown Completed [facility] TDAP (ADACEL) VACCINE Unknown Completed [facility] DTP Unknown Completed [facility] DTP Unknown Completed [facility] DTP Unknown Completed [facility] DTP Unknown Completed [facility] HIB 3 Dose Schedule Unknown Completed [facility] HIB 3 Dose Schedule Unknown Completed [facility] Hep B, Adol or Pedi Dosage Unknown Completed [facility] Hep B, Adol or Pedi Dosage Unknown Completed [facility] Hep B, Adol or Pedi Dosage Unknown Completed [facility] Hep B, Adol or Pedi Dosage Unknown Completed [facility] HPV Unknown Completed [facility] HPV Unknown Completed [facility] Meningococcal Vaccine Unknown Completed [facility] Meningococcal Vaccine Unknown Completed [facility] MMR Unknown Completed [facility] MMR Unknown Completed [facility] Polio (IPV/OPV) Unknown [facility] Completed [facility] Polio (IPV/OPV) Unknown Completed [facility] Polio (IPV/OPV) Unknown Completed [facility] Varicella (varivax)(chicken pox) Unknown Completed [facility] Varicella (varivax)(chicken pox) Unknown Completed [facility] Meningococcal B, OMV Unknown Completed [facility] Influenza Virus Vaccine Quad .5 mL IM 6+ MO (FLUZONE/FLULAVAL/F LUARIX) Unknown Completed [facility] TDAP Unknown Completed [facility] SARS-COV-2 COVID-19 PFIZER VACCINE Unknown Completed [facility] Influenza Virus Vaccine Quad IM, Preserv and ABX Free 6 MO-64 YRS (FLUCELVAX) Unknown Completed [facility] TDAP (ADACEL) VACCINE Unknown Completed [facility] DTP Unknown Completed [facility] DTP Unknown Completed [facility] DTP Unknown Completed [facility] DTP Unknown Completed [facility] HIB 3 Dose Schedule Unknown Completed [facility] HIB 3 Dose Schedule Unknown Completed [facility] Hep B, Adol or Pedi Dosage Unknown Completed [facility] Hep B, Adol or Pedi Dosage Unknown Completed [facility] Hep B, Adol or Pedi Dosage Unknown Completed [facility] Hep B, Adol or Pedi Dosage Unknown Completed [facility] HPV Unknown Completed [facility] HPV Unknown Completed [facility] Meningococcal Vaccine Unknown Completed [facility] Meningococcal Vaccine Unknown Completed [facility] MMR Unknown Completed [facility] MMR Unknown Completed [facility] Polio (IPV/OPV) Unknown [facility] ([facility]OPV[facility]V) Unknown Completed [facility] Polio (IPV/OPV) Unknown Completed [facility] Varicella (varivax)(chicken pox) Unknown Completed [facility] Varicella (varivax)(chicken pox) Unknown Completed [facility] Meningococcal B, OMV Unknown Completed [facility] Influenza Virus Vaccine Quad .5 mL IM 6+ MO (FLUZONE/FLULAVAL/F LUARIX) Unknown Completed [facility] TDAP Unknown Completed [facility] SARS-COV-2 COVID-19 PFIZER VACCINE Unknown Completed [facility] Influenza Virus Vaccine Quad IM, Preserv and ABX Free 6 MO-64 YRS (FLUCELVAX) Unknown Completed [facility] TDAP (ADACEL) VACCINE Unknown Completed [facility] DTP Unknown Completed [facility] DTP Unknown Completed [facility] DTP Unknown Completed [facility] DTP Unknown Completed [facility] HIB 3 Dose Schedule Unknown Completed [facility] HIB 3 Dose Schedule Unknown Completed [facility] Hep B, Adol or Pedi Dosage Unknown Completed [facility] Hep B, Adol or Pedi Dosage Unknown Completed [facility] Hep B, Adol or Pedi Dosage Unknown Completed [facility] Hep B, Adol or Pedi Dosage Unknown Completed [facility] HPV Unknown Completed [facility] HPV Unknown Completed [facility] Meningococcal Vaccine Unknown Completed [facility] Meningococcal Vaccine Unknown Completed [facility] MMR Unknown Completed [facility] MMR Unknown Completed [facility] Polio (IPV/OPV) Unknown Completed [facility] Polio (IPV/OPV) Unknown Completed [facility] Polio (IPV/OPV) Unknown Completed [facility] Polio (IPV/OPV) Unknown Completed [facility] Varicella (varivax)(chicken pox) Unknown Completed [facility] Varicella (varivax)(chicken pox) Unknown Completed [facility] Meningococcal B, OMV Unknown Completed [facility] Influenza Virus Vaccine Quad .5 mL IM 6+ MO (FLUZONE/FLULAVAL/F LUARIX) Unknown Completed [facility] TDAP Unknown Completed [facility] SARS-COV-2 COVID-19 PFIZER VACCINE Unknown Completed [facility] Influenza Virus Vaccine Quad IM, Preserv and ABX Free 6 MO-64 YRS (FLUCELVAX) Unknown Completed [facility] TDAP (ADACEL) VACCINE Unknown Completed [facility] DTP Unknown Completed [facility] DTP Unknown Completed [facility] DTP Unknown Completed [facility] DTP Unknown Completed [facility] HIB 3 Dose Schedule Unknown Completed [facility] HIB 3 Dose Schedule Unknown Completed [facility] Hep B, Adol or Pedi Dosage Unknown Completed [facility] Hep B, Adol or Pedi Dosage Unknown Completed [facility] Hep B, Adol or Pedi Dosage Unknown Completed [facility] Hep B, Adol or Pedi Dosage Unknown Completed [facility] HPV Unknown Completed [facility] HPV Unknown Completed [facility] Meningococcal Vaccine Unknown Completed [facility] Meningococcal Vaccine Unknown Completed [facility] MMR Unknown Completed [facility] MMR Unknown Completed [facility] Polio (IPV/OPV) Unknown Completed [facility] Polio (IPV/OPV) Unknown Completed [facility] Polio (IPV/OPV) Unknown Completed [facility] Polio (IPV/OPV) Unknown Completed [facility] Varicella (varivax)(chicken pox) Unknown Completed [facility] Varicella (varivax)(chicken pox) Unknown Completed [facility] Meningococcal B, OMV Unknown Completed [facility] Influenza Virus Vaccine Quad .5 mL IM 6+ MO (FLUZONE/FLULAVAL/F LUARIX) Unknown Completed [facility] TDAP Unknown Completed [facility] SARS-COV-2 COVID-19 PFIZER VACCINE Unknown Completed [facility] Influenza Virus Vaccine Quad IM, Preserv and ABX Free 6 MO-64 YRS (FLUCELVAX) Unknown Completed [facility] TDAP (ADACEL) VACCINE Unknown Completed [facility] DTP Unknown Completed [facility] DTP Unknown Completed [facility] DTP Unknown Completed [facility] DTP Unknown Completed [facility] HIB 3 Dose Schedule Unknown Completed [facility] HIB 3 Dose Schedule Unknown Completed [facility] Hep B, Adol or Pedi Dosage Unknown Completed [facility] Hep B, Adol or Pedi Dosage Unknown Completed [facility] Hep B, Adol or Pedi Dosage Unknown Completed [facility] Hep B, Adol or Pedi Dosage Unknown Completed [facility] HPV Unknown Completed [facility] HPV Unknown Completed [facility] Meningococcal Vaccine Unknown Completed [facility] Meningococcal Vaccine Unknown Completed [facility] MMR Unknown Completed [facility] MMR Unknown Completed [facility] Polio (IPV/OPV) Unknown Completed [facility] Polio (IPV/OPV) Unknown Completed [facility] Polio (IPV/OPV) Unknown Completed [facility] Polio (IPV/OPV) Unknown Completed [facility] Varicella (varivax)(chicken pox) Unknown Completed [facility] Varicella (varivax)(chicken pox) Unknown Completed [facility] Meningococcal B, OMV Unknown Completed [facility] Influenza Virus Vaccine Quad .5 mL IM 6+ MO (FLUZONE/FLULAVAL/F LUARIX) Unknown Completed [facility] TDAP Unknown Completed [facility] SARS-COV-2 COVID-19 PFIZER VACCINE Unknown Completed [facility] Influenza Virus Vaccine Quad IM, Preserv and ABX Free 6 MO-64 YRS (FLUCELVAX) Unknown Completed [facility] TDAP (ADACEL) VACCINE Unknown Completed [facility] DTP Unknown Completed [facility] DTP Unknown Completed [facility] DTP Unknown Completed [facility] DTP Unknown Completed [facility] HIB 3 Dose Schedule Unknown Completed [facility] HIB 3 Dose Schedule Unknown Completed [facility] Hep B, Adol or Pedi Dosage Unknown Completed [facility] Hep B, Adol or Pedi Dosage Unknown Completed [facility] Hep B, Adol or Pedi Dosage Unknown Completed [facility] Hep B, Adol or Pedi Dosage Unknown Completed [facility] HPV Unknown Completed [facility] HPV Unknown Completed [facility] Meningococcal Vaccine Unknown Completed [facility] Meningococcal Vaccine Unknown Completed [facility] MMR Unknown Completed [facility] MMR Unknown Completed [facility] Polio (IPV/OPV) Unknown Completed [facility] Polio (IPV/OPV) Unknown Completed [facility] Polio (IPV/OPV) Unknown [facility]V) [facility] Completed [facility] Varicella (varivax)(chicken pox) Unknown Completed [facility] Varicella (varivax)(chicken pox) Unknown Completed [facility] Meningococcal B, OMV Unknown Completed [facility] Influenza Virus Vaccine Quad .5 mL IM 6+ MO (FLUZONE/FLULAVAL/F LUARIX) Unknown Completed [facility] TDAP Unknown Completed [facility] SARS-COV-2 COVID-19 PFIZER VACCINE Unknown Completed [facility] Influenza Virus Vaccine Quad IM, Preserv and ABX Free 6 MO-64 YRS (FLUCELVAX) Unknown Completed [facility] TDAP (ADACEL) VACCINE Unknown Completed [facility] DTP Unknown Completed [facility] DTP Unknown Completed [facility] DTP Unknown Completed [facility] DTP Unknown Completed [facility] HIB 3 Dose Schedule Unknown Completed [facility] HIB 3 Dose Schedule Unknown Completed [facility] Hep B, Adol or Pedi Dosage Unknown Completed [facility] Hep B, Adol or Pedi Dosage Unknown Completed [facility] Hep B, Adol or Pedi Dosage Unknown Completed [facility] Hep B, Adol or Pedi Dosage Unknown Completed [facility] HPV Unknown Completed [facility] HPV Unknown Completed [facility] Meningococcal Vaccine Unknown Completed [facility] Meningococcal Vaccine Unknown Completed [facility] MMR Unknown Completed [facility] MMR Unknown Completed [facility] Polio (IPV/OPV) Unknown [facility] (IPV/OPV) Unknown [facility] Polio (IPV/OPV) Unknown [facility] Polio (IPV/OPV) Unknown Completed [facility] Varicella (varivax)(chicken pox) Unknown Completed [facility] Varicella (varivax)(chicken pox) Unknown Completed [facility] Meningococcal B, OMV Unknown Completed [facility] Influenza Virus Vaccine Quad .5 mL IM 6+ MO (FLUZONE/FLULAVAL/F LUARIX) Unknown Completed [facility] TDAP Unknown Completed [facility] SARS-COV-2 COVID-19 PFIZER VACCINE Unknown Completed [facility] Influenza Virus Vaccine Quad IM, Preserv and ABX Free 6 MO-64 YRS (FLUCELVAX) Unknown Completed [facility] TDAP (ADACEL) VACCINE Unknown Completed [facility] DTP Unknown Completed [facility] DTP Unknown Completed [facility] DTP Unknown Completed [facility] DTP Unknown Completed [facility] HIB 3 Dose Schedule Unknown Completed [facility] HIB 3 Dose Schedule Unknown Completed [facility] Hep B, Adol or Pedi Dosage Unknown Completed [facility] Hep B, Adol or Pedi Dosage Unknown Completed [facility] Hep B, Adol or Pedi Dosage Unknown Completed [facility] Hep B, Adol or Pedi Dosage Unknown Completed [facility] HPV Unknown Completed [facility] HPV Unknown Completed [facility] Meningococcal Vaccine Unknown Completed [facility] Meningococcal Vaccine Unknown Completed [facility] MMR Unknown Completed [facility] MMR Unknown Completed [facility] Polio (IPV/OPV) Unknown Completed [facility] Polio (IPV/OPV) Unknown Completed [facility] Polio (IPV/OPV) Unknown Completed [facility] Polio (IPV/OPV) Unknown Completed [facility] Varicella (varivax)(chicken pox) Unknown Completed [facility] Varicella (varivax)(chicken pox) Unknown Completed [facility] Meningococcal B, OMV Unknown Completed [facility] Influenza Virus Vaccine Quad .5 mL IM 6+ MO (FLUZONE/FLULAVAL/F LUARIX) Unknown Completed [facility] TDAP Unknown Completed [facility] SARS-COV-2 COVID-19 PFIZER VACCINE Unknown Completed [facility] Influenza Virus Vaccine Quad IM, Preserv and ABX Free 6 MO-64 YRS (FLUCELVAX) Unknown Completed [facility] TDAP (ADACEL) VACCINE Unknown Completed [facility] DTP Unknown Completed [facility] DTP Unknown Completed [facility] DTP Unknown Completed [facility] DTP Unknown Completed [facility] HIB 3 Dose Schedule Unknown Completed [facility] HIB 3 Dose Schedule Unknown Completed [facility] Hep B, Adol or Pedi Dosage Unknown Completed [facility] Hep B, Adol or Pedi Dosage Unknown Completed [facility] Hep B, Adol or Pedi Dosage Unknown Completed [facility] Hep B, Adol or Pedi Dosage Unknown Completed [facility] HPV Unknown Completed [facility] HPV Unknown Completed [facility] Meningococcal Vaccine Unknown Completed [facility] Meningococcal Vaccine Unknown Completed [facility] MMR Unknown Completed [facility] MMR Unknown Completed [facility] Polio (IPV/OPV) Unknown Completed [facility] Polio (IPV/OPV) Unknown Completed [facility] Polio (IPV/OPV) Unknown Completed [facility] Polio (IPV/OPV) Unknown Completed [facility] Varicella (varivax)(chicken pox) Unknown Completed [facility] Varicella (varivax)(chicken pox) Unknown Completed [facility] Meningococcal B, OMV Unknown Completed [facility] Influenza Virus Vaccine Quad .5 mL IM 6+ MO (FLUZONE/FLULAVAL/F LUARIX) Unknown Completed [facility] TDAP Unknown Completed [facility] SARS-COV-2 COVID-19 PFIZER VACCINE Unknown Completed [facility] Influenza Virus Vaccine Quad IM, Preserv and ABX Free 6 MO-64 YRS (FLUCELVAX) Unknown Completed [facility] TDAP (ADACEL) VACCINE Unknown Completed [facility] DTP Unknown Completed [facility] DTP Unknown Completed [facility] DTP Unknown Completed [facility] DTP Unknown Completed [facility] HIB 3 Dose Schedule Unknown Completed [facility] HIB 3 Dose Schedule Unknown Completed [facility] Hep B, Adol or Pedi Dosage Unknown Completed [facility] Hep B, Adol or Pedi Dosage Unknown Completed [facility] Hep B, Adol or Pedi Dosage Unknown Completed [facility] Hep B, Adol or Pedi Dosage Unknown Completed [facility] HPV Unknown Completed [facility] HPV Unknown Completed [facility] Meningococcal Vaccine Unknown Completed [facility] Meningococcal Vaccine Unknown Completed [facility] MMR Unknown Completed [facility] MMR Unknown Completed [facility] Polio (IPV/OPV) Unknown Completed [facility] Polio (IPV/OPV) Unknown Completed [facility] Polio (IPV/OPV) Unknown Completed [facility] Polio (IPV/OPV) Unknown Completed [facility] Varicella (varivax)(chicken pox) Unknown Completed [facility] Varicella (varivax)(chicken pox) Unknown Completed [facility] Meningococcal B, OMV Unknown Completed [facility] Influenza Virus Vaccine Quad .5 mL IM 6+ MO (FLUZONE/FLULAVAL/F LUARIX) Unknown Completed [facility] TDAP Unknown Completed [facility] SARS-COV-2 COVID-19 PFIZER VACCINE Unknown Completed [facility] Influenza Virus Vaccine Quad IM, Preserv and ABX Free 6 MO-64 YRS (FLUCELVAX) Unknown Completed [facility] TDAP (ADACEL) VACCINE Unknown Completed [facility] DTP Unknown Completed [facility] DTP Unknown Completed [facility] DTP Unknown Completed [facility] DTP Unknown Completed [facility] HIB 3 Dose Schedule Unknown Completed [facility] HIB 3 Dose Schedule Unknown Completed [facility] Hep B, Adol or Pedi Dosage Unknown Completed [facility] Hep B, Adol or Pedi Dosage Unknown Completed [facility] Hep B, Adol or Pedi Dosage Unknown Completed [facility] Hep B, Adol or Pedi Dosage Unknown Completed [facility] HPV Unknown Completed [facility] HPV Unknown Completed [facility] Meningococcal Vaccine Unknown Completed [facility] Meningococcal Vaccine Unknown Completed [facility] MMR Unknown Completed [facility] MMR Unknown Completed [facility] Polio (IPV/OPV) Unknown Completed [facility] Polio (IPV/OPV) Unknown Completed [facility] Polio (IPV/OPV) Unknown Completed [facility] Polio (IPV/OPV) Unknown Completed [facility] Varicella (varivax)(chicken pox) Unknown Completed [facility] Varicella (varivax)(chicken pox) Unknown Completed [facility] Meningococcal B, OMV Unknown Completed [facility] Influenza Virus Vaccine Quad .5 mL IM 6+ MO (FLUZONE/FLULAVAL/F LUARIX) Unknown Completed [facility] TDAP Unknown Completed [facility] SARS-COV-2 COVID-19 PFIZER VACCINE Unknown Completed [facility] Influenza Virus Vaccine Quad IM, Preserv and ABX Free 6 MO-64 YRS (FLUCELVAX) Unknown Completed [facility] TDAP (ADACEL) VACCINE Unknown Completed [facility] DTP Unknown Completed [facility] DTP Unknown Completed [facility] DTP Unknown Completed [facility] DTP Unknown Completed [facility] HIB 3 Dose Schedule Unknown Completed [facility] HIB 3 Dose Schedule Unknown Completed [facility] Hep B, Adol or Pedi Dosage Unknown Completed [facility] Hep B, Adol or Pedi Dosage Unknown Completed [facility] Hep B, Adol or Pedi Dosage Unknown Completed [facility] Hep B, Adol or Pedi Dosage Unknown Completed [facility] HPV Unknown Completed [facility] HPV Unknown Completed [facility] Meningococcal Vaccine Unknown Completed [facility] Meningococcal Vaccine Unknown Completed [facility] MMR Unknown Completed [facility] MMR Unknown Completed [facility] Polio (IPV/OPV) Unknown Completed [facility] Polio (IPV/OPV) Unknown Completed [facility] Polio (IPV/OPV) Unknown Completed [facility] Polio (IPV/OPV) Unknown Completed [facility] Varicella (varivax)(chicken pox) Unknown Completed [facility] Varicella (varivax)(chicken pox) Unknown Completed [facility] Meningococcal B, OMV Unknown Completed [facility] Influenza Virus Vaccine Quad .5 mL IM 6+ MO (FLUZONE/FLULAVAL/F LUARIX) Unknown Completed [facility] TDAP Unknown Completed [facility] SARS-COV-2 COVID-19 PFIZER VACCINE Unknown Completed [facility] Influenza Virus Vaccine Quad IM, Preserv and ABX Free 6 MO-64 YRS (FLUCELVAX) Unknown Completed [facility] TDAP (ADACEL) VACCINE Unknown Completed [facility] DTP Unknown Completed [facility] DTP Unknown Completed [facility] DTP Unknown Completed [facility] DTP Unknown Completed [facility] HIB 3 Dose Schedule Unknown Completed [facility] HIB 3 Dose Schedule Unknown Completed [facility] Hep B, Adol or Pedi Dosage Unknown Completed [facility] Hep B, Adol or Pedi Dosage Unknown Completed [facility] Hep B, Adol or Pedi Dosage Unknown Completed [facility] Hep B, Adol or Pedi Dosage Unknown Completed [facility] HPV Unknown Completed [facility] HPV Unknown Completed [facility] Meningococcal Vaccine Unknown Completed [facility] Meningococcal Vaccine Unknown Completed [facility] MMR Unknown Completed [facility] MMR Unknown Completed [facility] Polio (IPV/OPV) Unknown Completed [facility] Polio (IPV/OPV) Unknown Completed [facility] Polio (IPV/OPV) Unknown Completed [facility] Polio (IPV/OPV) Unknown Completed [facility] Varicella (varivax)(chicken pox) Unknown Completed [facility] Varicella (varivax)(chicken pox) Unknown Completed [facility] Meningococcal B, OMV Unknown Completed [facility] Influenza Virus Vaccine Quad .5 mL IM 6+ MO (FLUZONE/FLULAVAL/F LUARIX) Unknown Completed [facility] TDAP Unknown Completed [facility] SARS-COV-2 COVID-19 PFIZER VACCINE Unknown Completed [facility] Influenza Virus Vaccine Quad IM, Preserv and ABX Free 6 MO-64 YRS (FLUCELVAX) Unknown Completed [facility] TDAP (ADACEL) VACCINE Unknown Completed [facility] DTP Unknown Completed [facility] DTP Unknown Completed [facility] DTP Unknown Completed [facility] DTP Unknown Completed [facility] HIB 3 Dose Schedule Unknown Completed [facility] HIB 3 Dose Schedule Unknown Completed [facility] Hep B, Adol or Pedi Dosage Unknown Completed [facility] Hep B, Adol or Pedi Dosage Unknown Completed [facility] Hep B, Adol or Pedi Dosage Unknown Completed [facility] Hep B, Adol or Pedi Dosage Unknown Completed [facility] HPV Unknown Completed [facility] HPV Unknown Completed [facility] Meningococcal Vaccine Unknown Completed [facility] Meningococcal Vaccine Unknown Completed [facility] MMR Unknown Completed [facility] MMR Unknown Completed [facility] Polio (IPV/OPV) Unknown Completed [facility] Polio (IPV/OPV) Unknown Completed [facility] Polio (IPV/OPV) Unknown Completed [facility] Polio (IPV/OPV) Unknown Completed [facility] Varicella (varivax)(chicken pox) Unknown Completed [facility] Varicella (varivax)(chicken pox) Unknown Completed [facility] Meningococcal B, OMV Unknown Completed [facility] Influenza Virus Vaccine Quad .5 mL IM 6+ MO (FLUZONE/FLULAVAL/F LUARIX) Unknown Completed [facility] TDAP Unknown Completed [facility] SARS-COV-2 COVID-19 PFIZER VACCINE Unknown Completed [facility] Influenza Virus Vaccine Quad IM, Preserv and ABX Free 6 MO-64 YRS (FLUCELVAX) Unknown Completed [facility] TDAP (ADACEL) VACCINE Unknown Completed [facility] DTP Unknown Completed [facility] DTP Unknown Completed [facility] DTP Unknown Completed [facility] DTP Unknown Completed [facility] HIB 3 Dose Schedule Unknown Completed [facility] HIB 3 Dose Schedule Unknown Completed [facility] Hep B, Adol or Pedi Dosage Unknown Completed [facility] Hep B, Adol or Pedi Dosage Unknown Completed [facility] Hep B, Adol or Pedi Dosage Unknown Completed [facility] Hep B, Adol or Pedi Dosage Unknown Completed [facility] HPV Unknown Completed [facility] HPV Unknown Completed [facility] Meningococcal Vaccine Unknown Completed [facility] Meningococcal Vaccine Unknown Completed [facility] MMR Unknown Completed [facility] MMR Unknown Completed [facility] Polio (IPV/OPV) Unknown [facility] Completed [facility] Polio (IPV/OPV) Unknown Completed [facility] Polio (IPV/OPV) Unknown Completed [facility] Varicella (varivax)(chicken pox) Unknown Completed [facility] Varicella (varivax)(chicken pox) Unknown Completed [facility] Meningococcal B, OMV Unknown Completed [facility] Influenza Virus Vaccine Quad .5 mL IM 6+ MO (FLUZONE/FLULAVAL/F LUARIX) Unknown Completed [facility] TDAP Unknown Completed [facility] SARS-COV-2 COVID-19 PFIZER VACCINE Unknown Completed [facility] Influenza Virus Vaccine Quad IM, Preserv and ABX Free 6 MO-64 YRS (FLUCELVAX) Unknown Completed [facility] TDAP (ADACEL) VACCINE Unknown Completed [facility] DTP Unknown Completed [facility] DTP Unknown Completed [facility] DTP Unknown Completed [facility] DTP Unknown Completed [facility] HIB 3 Dose Schedule Unknown Completed [facility] HIB 3 Dose Schedule Unknown Completed [facility] Hep B, Adol or Pedi Dosage Unknown Completed [facility] Hep B, Adol or Pedi Dosage Unknown Completed [facility] Hep B, Adol or Pedi Dosage Unknown Completed [facility] Hep B, Adol or Pedi Dosage Unknown Completed [facility] HPV Unknown Completed [facility] HPV Unknown Completed [facility] Meningococcal Vaccine Unknown Completed [facility] Meningococcal Vaccine Unknown Completed [facility] MMR Unknown Completed [facility] MMR Unknown Completed [facility] Polio (IPV/OPV) Unknown [facility] Polio ([facility]/OPV) Unknown Completed [facility] Polio (IPV/OPV) Unknown Completed [facility] Polio (IPV/OPV) Unknown Completed [facility] Varicella (varivax)(chicken pox) Unknown Completed [facility] Varicella (varivax)(chicken pox) Unknown Completed [facility] Meningococcal B, OMV Unknown Completed [facility] Influenza Virus Vaccine Quad .5 mL IM 6+ MO (FLUZONE/FLULAVAL/F LUARIX) Unknown Completed [facility] TDAP Unknown Completed [facility] SARS-COV-2 COVID-19 PFIZER VACCINE Unknown Completed [facility] Influenza Virus Vaccine Quad IM, Preserv and ABX Free 6 MO-64 YRS (FLUCELVAX) Unknown Completed [facility] TDAP (ADACEL) VACCINE Unknown Completed [facility] DTP Unknown Completed [facility] DTP Unknown Completed [facility] DTP Unknown Completed [facility] DTP Unknown Completed [facility] HIB 3 Dose Schedule Unknown Completed [facility] HIB 3 Dose Schedule Unknown Completed [facility] Hep B, Adol or Pedi Dosage Unknown Completed [facility] Hep B, Adol or Pedi Dosage Unknown Completed [facility] Hep B, Adol or Pedi Dosage Unknown Completed [facility] Hep B, Adol or Pedi Dosage Unknown Completed [facility] HPV Unknown Completed [facility] HPV Unknown Completed [facility] Meningococcal Vaccine Unknown Completed [facility] Meningococcal Vaccine Unknown Completed [facility] MMR Unknown Completed [facility] MMR Unknown Completed [facility] Polio (IPV/OPV) Unknown Completed [facility] Polio (IPV/OPV) Unknown Completed [facility] Polio (IPV/OPV) Unknown Completed [facility] Polio (IPV/OPV) Unknown Completed [facility] Varicella (varivax)(chicken pox) Unknown Completed [facility] Varicella (varivax)(chicken pox) Unknown Completed [facility] Meningococcal B, OMV Unknown Completed [facility] Influenza Virus Vaccine Quad .5 mL IM 6+ MO (FLUZONE/FLULAVAL/F LUARIX) Unknown Completed [facility] TDAP Unknown Completed [facility] SARS-COV-2 COVID-19 PFIZER VACCINE Unknown Completed [facility] Influenza Virus Vaccine Quad IM, Preserv and ABX Free 6 MO-64 YRS (FLUCELVAX) Unknown Completed [facility] TDAP (ADACEL) VACCINE Unknown Completed [facility] DTP Unknown Completed [facility] DTP Unknown Completed [facility] DTP Unknown Completed [facility] DTP Unknown Completed [facility] HIB 3 Dose Schedule Unknown Completed [facility] HIB 3 Dose Schedule Unknown Completed [facility] Hep B, Adol or Pedi Dosage Unknown Completed [facility] Hep B, Adol or Pedi Dosage Unknown Completed [facility] Hep B, Adol or Pedi Dosage Unknown Completed [facility] Hep B, Adol or Pedi Dosage Unknown Completed [facility] HPV Unknown Completed [facility] HPV Unknown Completed [facility] Meningococcal Vaccine Unknown Completed [facility] Meningococcal Vaccine Unknown Completed [facility] MMR Unknown Completed [facility] MMR Unknown Completed [facility] Polio (IPV/OPV) Unknown Completed [facility] Polio (IPV/OPV) Unknown Completed [facility] Polio (IPV/OPV) Unknown Completed [facility] Polio (IPV/OPV) Unknown Completed [facility] Varicella (varivax)(chicken pox) Unknown Completed [facility] Varicella (varivax)(chicken pox) Unknown Completed [facility] Meningococcal B, OMV Unknown Completed [facility] Influenza Virus Vaccine Quad .5 mL IM 6+ MO (FLUZONE/FLULAVAL/F LUARIX) Unknown Completed [facility] TDAP Unknown Completed [facility] SARS-COV-2 COVID-19 PFIZER VACCINE Unknown Completed [facility] Influenza Virus Vaccine Quad IM, Preserv and ABX Free 6 MO-64 YRS (FLUCELVAX) Unknown Completed [facility] TDAP (ADACEL) VACCINE Unknown Completed [facility] DTP Unknown Completed [facility] DTP Unknown Completed [facility] DTP Unknown Completed [facility] DTP Unknown Completed [facility] HIB 3 Dose Schedule Unknown Completed [facility] HIB 3 Dose Schedule Unknown Completed [facility] Hep B, Adol or Pedi Dosage Unknown Completed [facility] Hep B, Adol or Pedi Dosage Unknown Completed [facility] Hep B, Adol or Pedi Dosage Unknown Completed [facility] Hep B, Adol or Pedi Dosage Unknown Completed [facility] HPV Unknown Completed [facility] HPV Unknown Completed [facility] Meningococcal Vaccine Unknown Completed [facility] Meningococcal Vaccine Unknown Completed [facility] MMR Unknown Completed [facility] MMR Unknown Completed [facility] Polio (IPV/OPV) Unknown Completed [facility] Polio (IPV/OPV) Unknown Completed [facility] Polio (IPV/OPV) Unknown Completed [facility] Polio (IPV/OPV) Unknown Completed [facility] Varicella (varivax)(chicken pox) Unknown Completed [facility] Varicella (varivax)(chicken pox) Unknown Completed [facility] Meningococcal B, OMV Unknown Completed [facility] Influenza Virus Vaccine Quad .5 mL IM 6+ MO (FLUZONE/FLULAVAL/F LUARIX) Unknown Completed [facility] TDAP Unknown Completed [facility] SARS-COV-2 COVID-19 PFIZER VACCINE Unknown Completed [facility] Influenza Virus Vaccine Quad IM, Preserv and ABX Free 6 MO-64 YRS (FLUCELVAX) Unknown Completed [facility] TDAP (ADACEL) VACCINE Unknown Completed [facility] DTP Unknown Completed [facility] DTP Unknown Completed [facility] DTP Unknown Completed [facility] DTP Unknown Completed [facility] HIB 3 Dose Schedule Unknown Completed [facility] HIB 3 Dose Schedule Unknown Completed [facility] Hep B, Adol or Pedi Dosage Unknown Completed [facility] Hep B, Adol or Pedi Dosage Unknown Completed [facility] Hep B, Adol or Pedi Dosage Unknown Completed [facility] Hep B, Adol or Pedi Dosage Unknown Completed [facility] HPV Unknown Completed [facility] HPV Unknown Completed [facility] Meningococcal Vaccine Unknown Completed [facility] Meningococcal Vaccine Unknown Completed [facility] MMR Unknown Completed [facility] MMR Unknown Completed [facility] Polio (IPV/OPV) Unknown [facility] ([facility]/OPV) Unknown Completed [facility] Polio (IPV/OPV) Unknown Completed [facility] Polio (IPV/OPV) Unknown Completed [facility] Varicella (varivax)(chicken pox) Unknown Completed [facility] Varicella (varivax)(chicken pox) Unknown Completed [facility] Meningococcal B, OMV Unknown Completed [facility] Influenza Virus Vaccine Quad .5 mL IM 6+ MO (FLUZONE/FLULAVAL/F LUARIX) Unknown Completed [facility] TDAP Unknown Completed [facility] SARS-COV-2 COVID-19 PFIZER VACCINE Unknown Completed [facility] Influenza Virus Vaccine Quad IM, Preserv and ABX Free 6 MO-64 YRS (FLUCELVAX) Unknown Completed [facility] TDAP (ADACEL) VACCINE Unknown Completed [facility] DTP Unknown Completed [facility] DTP Unknown Completed [facility] DTP Unknown Completed [facility] DTP Unknown Completed [facility] HIB 3 Dose Schedule Unknown Completed [facility] HIB 3 Dose Schedule Unknown Completed [facility] Hep B, Adol or Pedi Dosage Unknown Completed [facility] Hep B, Adol or Pedi Dosage Unknown Completed [facility] Hep B, Adol or Pedi Dosage Unknown Completed [facility] Hep B, Adol or Pedi Dosage Unknown Completed [facility] HPV Unknown Completed [facility] HPV Unknown Completed [facility] Meningococcal Vaccine Unknown Completed [facility] Meningococcal Vaccine Unknown Completed [facility] MMR Unknown Completed [facility] MMR Unknown Completed [facility] Polio (IPV/OPV) Unknown Completed [facility] Polio (IPV/OPV) Unknown Completed [facility] Polio (IPV/OPV) Unknown Completed [facility] Polio (IPV/OPV) Unknown Completed [facility] Varicella (varivax)(chicken pox) Unknown Completed [facility] Varicella (varivax)(chicken pox) Unknown Completed [facility] Meningococcal B, OMV Unknown Completed [facility] Influenza Virus Vaccine Quad .5 mL IM 6+ MO (FLUZONE/FLULAVAL/F LUARIX) Unknown Completed [facility] TDAP Unknown Completed [facility] SARS-COV-2 COVID-19 PFIZER VACCINE Unknown Completed [facility] Influenza Virus Vaccine Quad IM, Preserv and ABX Free 6 MO-64 YRS (FLUCELVAX) Unknown Completed [facility] TDAP (ADACEL) VACCINE Unknown Completed [facility] DTP Unknown Completed [facility] DTP Unknown Completed [facility] DTP Unknown Completed [facility] DTP Unknown Completed [facility] HIB 3 Dose Schedule Unknown Completed [facility] HIB 3 Dose Schedule Unknown Completed [facility] Hep B, Adol or Pedi Dosage Unknown Completed [facility] Hep B, Adol or Pedi Dosage Unknown Completed [facility] Hep B, Adol or Pedi Dosage Unknown Completed [facility] Hep B, Adol or Pedi Dosage Unknown Completed [facility] HPV Unknown Completed [facility] HPV Unknown Completed [facility] Meningococcal Vaccine Unknown Completed [facility] Meningococcal Vaccine Unknown Completed [facility] MMR Unknown Completed [facility] MMR Unknown Completed [facility] Polio (IPV/OPV) Unknown Completed [facility] Polio (IPV/OPV) Unknown Completed [facility] Polio (IPV/OPV) Unknown Completed [facility] Polio (IPV/OPV) Unknown Completed [facility] Varicella (varivax)(chicken pox) Unknown Completed [facility] Varicella (varivax)(chicken pox) Unknown Completed [facility] Meningococcal B, OMV Unknown Completed [facility] Influenza Virus Vaccine Quad .5 mL IM 6+ MO (FLUZONE/FLULAVAL/F LUARIX) Unknown Completed [facility] TDAP Unknown Completed [facility] SARS-COV-2 COVID-19 PFIZER VACCINE Unknown Completed [facility] Influenza Virus Vaccine Quad IM, Preserv and ABX Free 6 MO-64 YRS (FLUCELVAX) Unknown Completed [facility] TDAP (ADACEL) VACCINE Unknown Completed [facility] DTP Unknown Completed [facility] DTP Unknown Completed [facility] DTP Unknown Completed [facility] DTP Unknown Completed [facility] HIB 3 Dose Schedule Unknown Completed [facility] HIB 3 Dose Schedule Unknown Completed [facility] [facility], Adol or Pedi Dosage Unknown Completed [facility] Hep B, Adol or Pedi Dosage Unknown Completed [facility] Hep B, Adol or Pedi Dosage Unknown Completed [facility] Hep B, Adol or Pedi Dosage Unknown Completed [facility] HPV Unknown Completed [facility] HPV Unknown Completed [facility] Meningococcal Vaccine Unknown Completed [facility] Meningococcal Vaccine Unknown Completed [facility] MMR Unknown Completed [facility] MMR Unknown Completed [facility] Polio (IPV/OPV) Unknown Completed [facility] Polio (IPV/OPV) Unknown Completed [facility] Polio (IPV/OPV) Unknown Completed [facility] Polio (IPV/OPV) Unknown Completed [facility] Varicella (varivax)(chicken pox) Unknown Completed [facility] Varicella (varivax)(chicken pox) Unknown Completed [facility] Meningococcal B, OMV Unknown Completed [facility] Influenza Virus Vaccine Quad .5 mL IM 6+ MO (FLUZONE/FLULAVAL/F LUARIX) Unknown Completed [facility] TDAP Unknown Completed [facility] SARS-COV-2 COVID-19 PFIZER VACCINE Unknown Completed [facility] Influenza Virus Vaccine Quad IM, Preserv and ABX Free 6 MO-64 YRS (FLUCELVAX) Unknown Completed [facility] TDAP (ADACEL) VACCINE Unknown Completed [facility] DTP Unknown Completed [facility] DTP Unknown Completed [facility] DTP Unknown Completed [facility] DTP Unknown Completed [facility] HIB 3 Dose Schedule Unknown Completed [facility] HIB 3 Dose Schedule Unknown Completed [facility] Hep B, Adol or Pedi Dosage Unknown Completed [facility] Hep B, Adol or Pedi Dosage Unknown Completed [facility] Hep B, Adol or Pedi Dosage Unknown Completed [facility] Hep B, Adol or Pedi Dosage Unknown Completed [facility] HPV Unknown Completed [facility] HPV Unknown Completed [facility] Meningococcal Vaccine Unknown Completed [facility] Meningococcal Vaccine Unknown Completed [facility] MMR Unknown Completed [facility] MMR Unknown Completed [facility] Polio (IPV/OPV) Unknown Completed [facility] Polio (IPV/OPV) Unknown Completed [facility] Polio (IPV/OPV) Unknown Completed [facility] Polio (IPV/OPV) Unknown Completed [facility] Varicella (varivax)(chicken pox) Unknown Completed [facility] Varicella (varivax)(chicken pox) Unknown Completed [facility] Meningococcal B, OMV Unknown Completed [facility] Influenza Virus Vaccine Quad .5 mL IM 6+ MO (FLUZONE/FLULAVAL/F LUARIX) Unknown Completed [facility] TDAP Unknown Completed [facility] SARS-COV-2 COVID-19 PFIZER VACCINE Unknown Completed [facility] Influenza Virus Vaccine Quad IM, Preserv and ABX Free 6 MO-64 YRS (FLUCELVAX) Unknown Completed [facility] TDAP (ADACEL) VACCINE Unknown Completed [facility] DTP Unknown Completed [facility] DTP Unknown Completed [facility] DTP Unknown Completed [facility] DTP Unknown Completed [facility] HIB 3 Dose Schedule Unknown Completed [facility] HIB 3 Dose Schedule Unknown Completed [facility] Hep B, Adol or Pedi Dosage Unknown Completed [facility] Hep B, Adol or Pedi Dosage Unknown Completed [facility] Hep B, Adol or Pedi Dosage Unknown Completed [facility] Hep B, Adol or Pedi Dosage Unknown Completed [facility] HPV Unknown Completed [facility] HPV Unknown Completed [facility] Meningococcal Vaccine Unknown Completed [facility] Meningococcal Vaccine Unknown Completed [facility] MMR Unknown Completed [facility] MMR Unknown Completed [facility] Polio (IPV/OPV) Unknown Completed [facility] Polio (IPV/OPV) Unknown Completed [facility] Polio (IPV/OPV) Unknown Completed [facility] Polio (IPV/OPV) Unknown Completed [facility] Varicella (varivax)(chicken pox) Unknown Completed [facility] Varicella (varivax)(chicken pox) Unknown Completed [facility] Meningococcal B, OMV Unknown Completed [facility] Influenza Virus Vaccine Quad .5 mL IM 6+ MO (FLUZONE/FLULAVAL/F LUARIX) Unknown Completed [facility] TDAP Unknown Completed [facility] SARS-COV-2 COVID-19 PFIZER VACCINE Unknown Completed [facility] Influenza Virus Vaccine Quad IM, Preserv and ABX Free 6 MO-64 YRS (FLUCELVAX) Unknown Completed [facility] TDAP (ADACEL) VACCINE Unknown Completed [facility] DTP Unknown Completed [facility] DTP Unknown Completed [facility] DTP Unknown Completed [facility] DTP Unknown Completed [facility] HIB 3 Dose Schedule Unknown Completed [facility] HIB 3 Dose Schedule Unknown Completed [facility] Hep B, Adol or Pedi Dosage Unknown Completed [facility] Hep B, Adol or Pedi Dosage Unknown Completed [facility] Hep B, Adol or Pedi Dosage Unknown Completed [facility] Hep B, Adol or Pedi Dosage Unknown Completed [facility] HPV Unknown Completed [facility] HPV Unknown Completed [facility] Meningococcal Vaccine Unknown Completed [facility] Meningococcal Vaccine Unknown Completed [facility] MMR Unknown Completed [facility] MMR Unknown Completed [facility] Polio (IPV/OPV) Unknown Completed [facility] Polio (IPV/OPV) Unknown Completed [facility] Polio (IPV/OPV) Unknown Completed [facility] Polio (IPV/OPV) Unknown Completed [facility] Varicella (varivax)(chicken pox) Unknown Completed [facility] Varicella (varivax)(chicken pox) Unknown Completed [facility] Meningococcal B, OMV Unknown Completed [facility] Influenza Virus Vaccine Quad .5 mL IM 6+ MO (FLUZONE/FLULAVAL/F LUARIX) Unknown Completed [facility] TDAP Unknown Completed [facility] SARS-COV-2 COVID-19 PFIZER VACCINE Unknown Completed [facility] Influenza Virus Vaccine Quad IM, Preserv and ABX Free 6 MO-64 YRS (FLUCELVAX) Unknown Completed [facility] TDAP (ADACEL) VACCINE Unknown Completed [facility] DTP Unknown Completed [facility] DTP Unknown Completed [facility] DTP Unknown Completed [facility] DTP Unknown Completed [facility] HIB 3 Dose Schedule Unknown Completed [facility] HIB 3 Dose Schedule Unknown Completed [facility] Hep B, Adol or Pedi Dosage Unknown Completed [facility] Hep B, Adol or Pedi Dosage Unknown Completed [facility] Hep B, Adol or Pedi Dosage Unknown Completed [facility] Hep B, Adol or Pedi Dosage Unknown Completed [facility] HPV Unknown Completed [facility] HPV Unknown Completed [facility] Meningococcal Vaccine Unknown Completed [facility] Meningococcal Vaccine Unknown Completed [facility] MMR Unknown Completed [facility] MMR Unknown Completed [facility] Polio (IPV/OPV) Unknown Completed [facility] Polio (IPV/OPV) Unknown Completed [facility] Polio (IPV/OPV) Unknown Completed [facility] Polio (IPV/OPV) Unknown Completed [facility] Varicella (varivax)(chicken pox) Unknown Completed [facility] Varicella (varivax)(chicken pox) Unknown Completed [facility] Meningococcal B, OMV Unknown Completed [facility] Influenza Virus Vaccine Quad .5 mL IM 6+ MO (FLUZONE/FLULAVAL/F LUARIX) Unknown Completed [facility] TDAP Unknown Completed [facility] SARS-COV-2 COVID-19 PFIZER VACCINE Unknown Completed [facility] Influenza Virus Vaccine Quad IM, Preserv and ABX Free 6 MO-64 YRS (FLUCELVAX) Unknown Completed [facility] TDAP (ADACEL) VACCINE Unknown Completed [facility] DTP Unknown Completed [facility] DTP Unknown Completed [facility] DTP Unknown Completed [facility] DTP Unknown Completed [facility] HIB 3 Dose Schedule Unknown Completed [facility] HIB 3 Dose Schedule Unknown Completed [facility] Hep B, Adol or Pedi Dosage Unknown Completed [facility] Hep B, Adol or Pedi Dosage Unknown Completed [facility] Hep B, Adol or Pedi Dosage Unknown Completed [facility] Hep B, Adol or Pedi Dosage Unknown Completed [facility] HPV Unknown Completed [facility] HPV Unknown Completed [facility] Meningococcal Vaccine Unknown Completed [facility] Meningococcal Vaccine Unknown Completed [facility] MMR Unknown Completed [facility] MMR Unknown Completed [facility] Polio (IPV/OPV) Unknown Completed [facility] Polio (IPV/OPV) Unknown Completed [facility] Polio (IPV/OPV) Unknown Completed [facility] Polio (IPV/OPV) Unknown Completed [facility] Varicella (varivax)(chicken pox) Unknown Completed [facility] Varicella (varivax)(chicken pox) Unknown Completed [facility] Meningococcal B, OMV Unknown Completed [facility] Influenza Virus Vaccine Quad .5 mL IM 6+ MO (FLUZONE/FLULAVAL/F LUARIX) Unknown Completed [facility] TDAP Unknown Completed [facility] SARS-COV-2 COVID-19 PFIZER VACCINE Unknown Completed [facility] Influenza Virus Vaccine Quad IM, Preserv and ABX Free 6 MO-64 YRS (FLUCELVAX) Unknown Completed [facility] TDAP (ADACEL) VACCINE Unknown Completed [facility] DTP Unknown Completed [facility] DTP Unknown Completed [facility] DTP Unknown Completed [facility] DTP Unknown Completed [facility] HIB 3 Dose Schedule Unknown Completed [facility] HIB 3 Dose Schedule Unknown Completed [facility] Hep B, Adol or Pedi Dosage Unknown Completed [facility] Hep B, Adol or Pedi Dosage Unknown Completed [facility] Hep B, Adol or Pedi Dosage Unknown Completed [facility] Hep B, Adol or Pedi Dosage Unknown Completed [facility] HPV Unknown Completed [facility] HPV Unknown Completed [facility] Meningococcal Vaccine Unknown Completed [facility] Meningococcal Vaccine Unknown Completed [facility] MMR Unknown Completed [facility] MMR Unknown Completed [facility] Polio (IPV/OPV) Unknown Completed [facility] Polio (IPV/OPV) Unknown Completed [facility] Polio (IPV/OPV) Unknown Completed [facility] Polio (IPV/OPV) Unknown Completed [facility] Varicella (varivax)(chicken pox) Unknown Completed [facility] Varicella (varivax)(chicken pox) Unknown Completed [facility] Meningococcal B, OMV Unknown Completed [facility] Influenza Virus Vaccine Quad .5 mL IM 6+ MO (FLUZONE/FLULAVAL/F LUARIX) Unknown Completed [facility] TDAP Unknown Completed [facility] SARS-COV-2 COVID-19 PFIZER VACCINE Unknown Completed [facility] Influenza Virus Vaccine Quad IM, Preserv and ABX Free 6 MO-64 YRS (FLUCELVAX) Unknown Completed [facility] TDAP (ADACEL) VACCINE Unknown Completed [facility] DTP Unknown Completed [facility] DTP Unknown Completed [facility] DTP Unknown Completed [facility] DTP Unknown Completed [facility] HIB 3 Dose Schedule Unknown Completed [facility] HIB 3 Dose Schedule Unknown Completed [facility] Hep B, Adol or Pedi Dosage Unknown Completed [facility] Hep B, Adol or Pedi Dosage Unknown Completed [facility] Hep B, Adol or Pedi Dosage Unknown Completed [facility] Hep B, Adol or Pedi Dosage Unknown Completed [facility] HPV Unknown Completed [facility] HPV Unknown Completed [facility] Meningococcal Vaccine Unknown Completed [facility] Meningococcal Vaccine Unknown Completed [facility] MMR Unknown Completed [facility] MMR Unknown Completed [facility] Polio (IPV/OPV) Unknown [facility] Polio (IPV/OPV) Unknown Completed [facility] Polio (IPV/OPV) Unknown Completed [facility] Varicella (varivax)(chicken pox) Unknown Completed [facility] Varicella (varivax)(chicken pox) Unknown Completed [facility] Meningococcal B, OMV Unknown Completed [facility] Influenza Virus Vaccine Quad .5 mL IM 6+ MO (FLUZONE/FLULAVAL/F LUARIX) Unknown Completed [facility] TDAP Unknown Completed [facility] SARS-COV-2 COVID-19 PFIZER VACCINE Unknown Completed [facility] Influenza Virus Vaccine Quad IM, Preserv and ABX Free 6 MO-64 YRS (FLUCELVAX) Unknown Completed [facility] TDAP (ADACEL) VACCINE Unknown Completed [facility] DTP Unknown Completed [facility] DTP Unknown Completed [facility] DTP Unknown Completed [facility] DTP Unknown Completed [facility] HIB 3 Dose Schedule Unknown Completed [facility] HIB 3 Dose Schedule Unknown Completed [facility] Hep B, Adol or Pedi Dosage Unknown Completed [facility] Hep B, Adol or Pedi Dosage Unknown Completed [facility] Hep B, Adol or Pedi Dosage Unknown Completed [facility] Hep B, Adol or Pedi Dosage Unknown Completed [facility] HPV Unknown Completed [facility] HPV Unknown Completed [facility] Meningococcal Vaccine Unknown Completed [facility] Meningococcal Vaccine Unknown Completed [facility] MMR Unknown Completed [facility] MMR Unknown Completed [facility] Polio (IPV/OPV) Unknown Completed [facility] Polio (IPV/OPV) Unknown Completed [facility] Polio (IPV/OPV) Unknown Completed [facility] Polio (IPV/OPV) Unknown Completed [facility] Varicella (varivax)(chicken pox) Unknown Completed [facility] Varicella (varivax)(chicken pox) Unknown Completed [facility] Meningococcal B, OMV Unknown Completed [facility] Influenza Virus Vaccine Quad .5 mL IM 6+ MO (FLUZONE/FLULAVAL/F LUARIX) Unknown Completed [facility] TDAP Unknown Completed [facility] SARS-COV-2 COVID-19 PFIZER VACCINE Unknown Completed [facility] Influenza Virus Vaccine Quad IM, Preserv and ABX Free 6 MO-64 YRS (FLUCELVAX) Unknown Completed [facility] TDAP (ADACEL) VACCINE Unknown Completed [facility] DTP Unknown Completed [facility] DTP Unknown Completed [facility] DTP Unknown Completed [facility] DTP Unknown Completed [facility] HIB 3 Dose Schedule Unknown Completed [facility] HIB 3 Dose Schedule Unknown Completed [facility] Hep B, Adol or Pedi Dosage Unknown Completed [facility] Hep B, Adol or Pedi Dosage Unknown Completed [facility] Hep B, Adol or Pedi Dosage Unknown Completed [facility] Hep B, Adol or Pedi Dosage Unknown Completed [facility] HPV Unknown Completed [facility] HPV Unknown Completed [facility] Meningococcal Vaccine Unknown Completed [facility] Meningococcal Vaccine Unknown Completed [facility] MMR Unknown Completed [facility] MMR Unknown Completed [facility] Polio (IPV/OPV) Unknown Completed [facility] Polio (IPV/OPV) Unknown Completed [facility] Polio (IPV/OPV) Unknown Completed [facility] Polio (IPV/OPV) Unknown Completed [facility] Varicella (varivax)(chicken pox) Unknown Completed [facility] Varicella (varivax)(chicken pox) Unknown Completed [facility] Meningococcal B, OMV Unknown Completed [facility] Influenza Virus Vaccine Quad .5 mL IM 6+ MO (FLUZONE/FLULAVAL/F LUARIX) Unknown Completed [facility] TDAP Unknown Completed [facility] SARS-COV-2 COVID-19 PFIZER VACCINE Unknown Completed [facility] Influenza Virus Vaccine Quad IM, Preserv and ABX Free 6 MO-64 YRS (FLUCELVAX) Unknown Completed [facility] TDAP (ADACEL) VACCINE Unknown Completed [facility] DTP Unknown Completed [facility] DTP Unknown Completed [facility] DTP Unknown Completed [facility] DTP Unknown Completed [facility] HIB 3 Dose Schedule Unknown Completed [facility] HIB 3 Dose Schedule Unknown Completed [facility] Hep B, Adol or Pedi Dosage Unknown Completed [facility] Hep B, Adol or Pedi Dosage Unknown Completed [facility] Hep B, Adol or Pedi Dosage Unknown Completed [facility] Hep B, Adol or Pedi Dosage Unknown Completed [facility] HPV Unknown Completed [facility] HPV Unknown Completed [facility] Meningococcal Vaccine Unknown Completed [facility] Meningococcal Vaccine Unknown Completed [facility] MMR Unknown Completed [facility] MMR Unknown Completed [facility] Polio (IPV/OPV) Unknown Completed [facility] Polio (IPV/OPV) Unknown Completed [facility] Polio (IPV/OPV) Unknown Completed [facility] Polio (IPV/OPV) Unknown Completed [facility] Varicella (varivax)(chicken pox) Unknown Completed [facility] Varicella (varivax)(chicken pox) Unknown Completed [facility] Meningococcal B, OMV Unknown Completed [facility] Influenza Virus Vaccine Quad .5 mL IM 6+ MO (FLUZONE/FLULAVAL/F LUARIX) Unknown Completed [facility] TDAP Unknown Completed [facility] SARS-COV-2 COVID-19 PFIZER VACCINE Unknown Completed [facility] Influenza Virus Vaccine Quad IM, Preserv and ABX Free 6 MO-64 YRS (FLUCELVAX) Unknown Completed [facility] TDAP (ADACEL) VACCINE Unknown Completed [facility] DTP Unknown Completed [facility] DTP Unknown Completed [facility] DTP Unknown Completed [facility] DTP Unknown Completed [facility] HIB 3 Dose Schedule Unknown Completed [facility] HIB 3 Dose Schedule Unknown Completed [facility] Hep B, Adol or Pedi Dosage Unknown Completed [facility] Hep B, Adol or Pedi Dosage Unknown Completed [facility] Hep B, Adol or Pedi Dosage Unknown Completed [facility] Hep B, Adol or Pedi Dosage Unknown Completed [facility] HPV Unknown Completed [facility] HPV Unknown Completed [facility] Meningococcal Vaccine Unknown Completed [facility] Meningococcal Vaccine Unknown Completed [facility] MMR Unknown Completed [facility] MMR Unknown Completed [facility] Polio (IPV/OPV) Unknown Completed [facility] Polio (IPV/OPV) Unknown Completed [facility] Polio (IPV/OPV) Unknown Completed [facility] Polio (IPV/OPV) Unknown Completed [facility] Varicella (varivax)(chicken pox) Unknown Completed [facility] Varicella (varivax)(chicken pox) Unknown Completed [facility] Meningococcal B, OMV Unknown Completed [facility] Influenza Virus Vaccine Quad .5 mL IM 6+ MO (FLUZONE/FLULAVAL/F LUARIX) Unknown Completed [facility] TDAP Unknown Completed [facility] SARS-COV-2 COVID-19 PFIZER VACCINE Unknown Completed [facility] Influenza Virus Vaccine Quad IM, Preserv and ABX Free 6 MO-64 YRS (FLUCELVAX) Unknown Completed [facility] TDAP (ADACEL) VACCINE Unknown Completed [facility] DTP Unknown Completed [facility] DTP Unknown Completed [facility] DTP Unknown Completed [facility] DTP Unknown Completed [facility] HIB 3 Dose Schedule Unknown Completed [facility] HIB 3 Dose Schedule Unknown Completed [facility] Hep B, Adol or Pedi Dosage Unknown Completed [facility] Hep B, Adol or Pedi Dosage Unknown Completed [facility] Hep B, Adol or Pedi Dosage Unknown Completed [facility] Hep B, Adol or Pedi Dosage Unknown Completed [facility] HPV Unknown Completed [facility] HPV Unknown Completed [facility] Meningococcal Vaccine Unknown Completed [facility] Meningococcal Vaccine Unknown Completed [facility] MMR Unknown Completed [facility] MMR Unknown Completed [facility] Polio (IPV/OPV) Unknown Completed [facility] Polio (IPV/OPV) Unknown Completed [facility] Polio (IPV/OPV) Unknown Completed [facility] Polio (IPV/OPV) Unknown Completed [facility] Varicella (varivax)(chicken pox) Unknown Completed [facility] Varicella (varivax)(chicken pox) Unknown Completed [facility] Meningococcal B, OMV Unknown Completed [facility] Influenza Virus Vaccine Quad .5 mL IM 6+ MO (FLUZONE/FLULAVAL/F LUARIX) Unknown Completed [facility] TDAP Unknown Completed [facility] SARS-COV-2 COVID-19 PFIZER VACCINE Unknown Completed [facility] Influenza Virus Vaccine Quad IM, Preserv and ABX Free 6 MO-64 YRS (FLUCELVAX) Unknown Completed [facility] TDAP (ADACEL) VACCINE Unknown Completed [facility] DTP Unknown Completed [facility] DTP Unknown Completed [facility] DTP Unknown Completed [facility] DTP Unknown Completed [facility] HIB 3 Dose Schedule Unknown Completed [facility] HIB 3 Dose Schedule Unknown Completed [facility] Hep B, Adol or Pedi Dosage Unknown Completed [facility] Hep B, Adol or Pedi Dosage Unknown Completed [facility] Hep B, Adol or Pedi Dosage Unknown Completed [facility] Hep B, Adol or Pedi Dosage Unknown Completed [facility] HPV Unknown Completed [facility] HPV Unknown Completed [facility] Meningococcal Vaccine Unknown Completed [facility] Meningococcal Vaccine Unknown Completed [facility] MMR Unknown Completed [facility] MMR Unknown Completed [facility] Polio (IPV/OPV) Unknown Completed [facility] Polio (IPV/OPV) Unknown Completed [facility] Polio (IPV/OPV) Unknown Completed [facility] Polio (IPV/OPV) Unknown Completed [facility] Varicella (varivax)(chicken pox) Unknown Completed [facility] Varicella (varivax)(chicken pox) Unknown Completed [facility] Meningococcal B, OMV Unknown Completed [facility] Influenza Virus Vaccine Quad .5 mL IM 6+ MO (FLUZONE/FLULAVAL/F LUARIX) Unknown Completed [facility] TDAP Unknown Completed [facility] SARS-COV-2 COVID-19 PFIZER VACCINE Unknown Completed [facility] Influenza Virus Vaccine Quad IM, Preserv and ABX Free 6 MO-64 YRS (FLUCELVAX) Unknown Completed [facility] TDAP (ADACEL) VACCINE Unknown Completed [facility] DTP Unknown Completed [facility] DTP Unknown Completed [facility] DTP Unknown Completed [facility] DTP Unknown Completed [facility] HIB 3 Dose Schedule Unknown Completed [facility] HIB 3 Dose Schedule Unknown Completed [facility] Hep B, Adol or Pedi Dosage Unknown Completed [facility] Hep B, Adol or Pedi Dosage Unknown Completed [facility] Hep B, Adol or Pedi Dosage Unknown Completed [facility] Hep B, Adol or Pedi Dosage Unknown Completed [facility] HPV Unknown Completed [facility] HPV Unknown Completed [facility] Meningococcal Vaccine Unknown Completed [facility] Meningococcal Vaccine Unknown Completed [facility] MMR Unknown Completed [facility] MMR Unknown Completed [facility] Polio (IPV/OPV) Unknown Completed [facility] Polio (IPV/OPV) Unknown Completed [facility] Polio (IPV/OPV) Unknown Completed [facility] Polio (IPV/OPV) Unknown Completed [facility] Varicella (varivax)(chicken pox) Unknown Completed [facility] Varicella (varivax)(chicken pox) Unknown Completed [facility] Meningococcal B, OMV Unknown Completed [facility] Influenza Virus Vaccine Quad .5 mL IM 6+ MO (FLUZONE/FLULAVAL/F LUARIX) Unknown Completed [facility] TDAP Unknown Completed [facility] SARS-COV-2 COVID-19 PFIZER VACCINE Unknown Completed [facility] Influenza Virus Vaccine Quad IM, Preserv and ABX Free 6 MO-64 YRS (FLUCELVAX) Unknown Completed [facility] TDAP (ADACEL) VACCINE Unknown Completed [facility] DTP Unknown Completed [facility] DTP Unknown Completed [facility] DTP Unknown Completed [facility] DTP Unknown Completed [facility] HIB 3 Dose Schedule Unknown Completed [facility] HIB 3 Dose Schedule Unknown Completed [facility] Hep B, Adol or Pedi Dosage Unknown Completed [facility] Hep B, Adol or Pedi Dosage Unknown Completed [facility] Hep B, Adol or Pedi Dosage Unknown Completed [facility] Hep B, Adol or Pedi Dosage Unknown Completed [facility] HPV Unknown Completed [facility] HPV Unknown Completed [facility] Meningococcal Vaccine Unknown Completed [facility] Meningococcal Vaccine Unknown Completed [facility] MMR Unknown Completed [facility] MMR Unknown Completed [facility] Polio (IPV/OPV) Unknown Completed [facility] Polio (IPV/OPV) Unknown Completed [facility] Polio (IPV/OPV) Unknown Completed [facility] Polio (IPV/OPV) Unknown Completed [facility] Varicella (varivax)(chicken pox) Unknown Completed [facility] Varicella (varivax)(chicken pox) Unknown Completed [facility] Meningococcal B, OMV Unknown Completed [facility] Influenza Virus Vaccine Quad .5 mL IM 6+ MO (FLUZONE/FLULAVAL/F LUARIX) Unknown Completed [facility] TDAP Unknown Completed [facility] SARS-COV-2 COVID-19 PFIZER VACCINE Unknown Completed [facility] Influenza Virus Vaccine Quad IM, Preserv and ABX Free 6 MO-64 YRS (FLUCELVAX) Unknown Completed [facility] TDAP (ADACEL) VACCINE Unknown Completed [facility] DTP Unknown Completed [facility] DTP Unknown Completed [facility] DTP Unknown Completed [facility] DTP Unknown Completed [facility] HIB 3 Dose Schedule Unknown Completed [facility] HIB 3 Dose Schedule Unknown Completed [facility] Hep B, Adol or Pedi Dosage Unknown Completed [facility] Hep B, Adol or Pedi Dosage Unknown Completed [facility] Hep B, Adol or Pedi Dosage Unknown Completed [facility] Hep B, Adol or Pedi Dosage Unknown Completed [facility] HPV Unknown Completed [facility] HPV Unknown Completed [facility] Meningococcal Vaccine Unknown Completed [facility] Meningococcal Vaccine Unknown Completed [facility] MMR Unknown Completed [facility] MMR Unknown Completed [facility] Polio (IPV/OPV) Unknown Completed [facility] Polio (IPV/OPV) Unknown Completed [facility] Polio (IPV/OPV) Unknown Completed [facility] Polio (IPV/OPV) Unknown Completed [facility] Varicella (varivax)(chicken pox) Unknown Completed [facility] Varicella (varivax)(chicken pox) Unknown Completed [facility] Meningococcal B, OMV Unknown Completed [facility] Influenza Virus Vaccine Quad .5 mL IM 6+ MO (FLUZONE/FLULAVAL/F LUARIX) Unknown Completed [facility] TDAP Unknown Completed [facility] SARS-COV-2 COVID-19 PFIZER VACCINE Unknown Completed [facility] Influenza Virus Vaccine Quad IM, Preserv and ABX Free 6 MO-64 YRS (FLUCELVAX) Unknown Completed [facility] TDAP (ADACEL) VACCINE Unknown Completed [facility] DTP Unknown Completed [facility] DTP Unknown Completed [facility] DTP Unknown Completed [facility] DTP Unknown Completed [facility] HIB 3 Dose Schedule Unknown Completed [facility] HIB 3 Dose Schedule Unknown Completed [facility] Hep B, Adol or Pedi Dosage Unknown Completed [facility] Hep B, Adol or Pedi Dosage Unknown Completed [facility] Hep B, Adol or Pedi Dosage Unknown Completed [facility] Hep B, Adol or Pedi Dosage Unknown Completed [facility] HPV Unknown Completed [facility] HPV Unknown Completed [facility] Meningococcal Vaccine Unknown Completed [facility] Meningococcal Vaccine Unknown Completed [facility] MMR Unknown Completed [facility] MMR Unknown Completed [facility] Polio (IPV/OPV) Unknown Completed [facility] Polio (IPV/OPV) Unknown Completed [facility] Polio (IPV/OPV) Unknown Completed [facility] Polio (IPV/OPV) Unknown Completed [facility] Varicella (varivax)(chicken pox) Unknown Completed [facility] Varicella (varivax)(chicken pox) Unknown Completed [facility] Meningococcal B, OMV Unknown Completed [facility] Influenza Virus Vaccine Quad .5 mL IM 6+ MO (FLUZONE/FLULAVAL/F LUARIX) Unknown Completed [facility] TDAP Unknown Completed [facility] SARS-COV-2 COVID-19 PFIZER VACCINE Unknown Completed [facility] Influenza Virus Vaccine Quad IM, Preserv and ABX Free 6 MO-64 YRS (FLUCELVAX) Unknown Completed [facility] TDAP (ADACEL) VACCINE Unknown Completed [facility] DTP Unknown Completed [facility] DTP Unknown Completed [facility] DTP Unknown Completed [facility] DTP Unknown Completed [facility] HIB 3 Dose Schedule Unknown Completed [facility] HIB 3 Dose Schedule Unknown Completed [facility] Hep B, Adol or Pedi Dosage Unknown Completed [facility] Hep B, Adol or Pedi Dosage Unknown Completed [facility] Hep B, Adol or Pedi Dosage Unknown Completed [facility] Hep B, Adol or Pedi Dosage Unknown Completed [facility] HPV Unknown Completed [facility] HPV Unknown Completed [facility] Meningococcal Vaccine Unknown Completed [facility] Meningococcal Vaccine Unknown Completed [facility] MMR Unknown Completed [facility] MMR Unknown Completed [facility] Polio (IPV/OPV) Unknown Completed [facility] Polio (IPV/OPV) Unknown Completed [facility] Polio (IPV/OPV) Unknown Completed [facility] Polio (IPV/OPV) Unknown Completed [facility] Varicella (varivax)(chicken pox) Unknown Completed [facility] Varicella (varivax)(chicken pox) Unknown Completed [facility] Meningococcal B, OMV Unknown Completed [facility] Influenza Virus Vaccine Quad .5 mL IM 6+ MO (FLUZONE/FLULAVAL/F LUARIX) Unknown Completed [facility] TDAP Unknown Completed [facility] SARS-COV-2 COVID-19 PFIZER VACCINE Unknown Completed [facility] Influenza Virus Vaccine Quad IM, Preserv and ABX Free 6 MO-64 YRS (FLUCELVAX) Unknown Completed [facility] TDAP Unknown Completed [facility] TDAP (ADACEL) VACCINE Unknown Completed [facility] DTP Unknown Completed [facility] DTP Unknown Completed [facility] DTP Unknown Completed [facility] DTP Unknown Completed [facility] HIB 3 Dose Schedule Unknown Completed [facility] HIB 3 Dose Schedule Unknown Completed [facility] Hep B, Adol or Pedi Dosage Unknown Completed [facility] Hep B, Adol or Pedi Dosage Unknown Completed [facility] Hep B, Adol or Pedi Dosage Unknown Completed [facility] Hep B, Adol or Pedi Dosage Unknown Completed [facility] HPV Unknown Completed [facility] HPV Unknown Completed [facility] Meningococcal Vaccine Unknown Completed [facility] Meningococcal Vaccine Unknown Completed [facility] MMR Unknown Completed [facility] MMR Unknown Completed [facility] Polio (IPV/OPV) Unknown Completed [facility] Polio (IPV/OPV) Unknown Completed [facility] Polio (IPV/OPV) Unknown Completed [facility] Polio (IPV/OPV) Unknown Completed [facility] Varicella (varivax)(chicken pox) Unknown Completed [facility] Varicella (varivax)(chicken pox) Unknown Completed [facility] Meningococcal B, OMV Unknown Completed [facility] Influenza Virus Vaccine Quad .5 mL IM 6+ MO (FLUZONE/FLULAVAL/F LUARIX) Unknown Completed [facility] TDAP Unknown Completed [facility] SARS-COV-2 COVID-19 PFIZER VACCINE Unknown Completed [facility] Influenza Virus Vaccine Quad IM, Preserv and ABX Free 6 MO-64 YRS (FLUCELVAX) Unknown Completed [facility] TDAP Unknown Completed [facility] TDAP (ADACEL) VACCINE Unknown Completed [facility] DTP Unknown Completed [facility] DTP Unknown Completed [facility] DTP Unknown Completed [facility] DTP Unknown Completed [facility] HIB 3 Dose Schedule Unknown Completed [facility] HIB 3 Dose Schedule Unknown Completed [facility] Hep B, Adol or Pedi Dosage Unknown Completed [facility] Hep B, Adol or Pedi Dosage Unknown Completed [facility] Hep B, Adol or Pedi Dosage Unknown Completed [facility] Hep B, Adol or Pedi Dosage Unknown Completed [facility] HPV Unknown Completed [facility] HPV Unknown Completed [facility] Meningococcal Vaccine Unknown Completed [facility] Meningococcal Vaccine Unknown Completed [facility] MMR Unknown Completed [facility] MMR Unknown Completed [facility] Polio (IPV/OPV) Unknown Completed [facility] Polio (IPV/OPV) Unknown Completed [facility] Polio (IPV/OPV) Unknown Completed [facility] Polio (IPV/OPV) Unknown Completed [facility] Varicella (varivax)(chicken pox) Unknown Completed [facility] Varicella (varivax)(chicken pox) Unknown Completed [facility] Meningococcal B, OMV Unknown Completed [facility] Influenza Virus Vaccine Quad .5 mL IM 6+ MO (FLUZONE/FLULAVAL/F LUARIX) Unknown Completed [facility] TDAP Unknown Completed [facility] SARS-COV-2 COVID-19 PFIZER VACCINE Unknown Completed [facility] Influenza Virus Vaccine Quad IM, Preserv and ABX Free 6 MO-64 YRS (FLUCELVAX) Unknown Completed [facility] TDAP Unknown Completed [facility] TDAP (ADACEL) VACCINE Unknown Completed [facility] DTP Unknown Completed [facility] DTP Unknown Completed [facility] DTP Unknown Completed [facility] DTP Unknown Completed [facility] HIB 3 Dose Schedule Unknown Completed [facility] HIB 3 Dose Schedule Unknown Completed [facility] Hep B, Adol or Pedi Dosage Unknown Completed [facility] Hep B, Adol or Pedi Dosage Unknown Completed [facility] Hep B, Adol or Pedi Dosage Unknown Completed [facility] Hep B, Adol or Pedi Dosage Unknown Completed [facility] HPV Unknown Completed [facility] HPV Unknown Completed [facility] Meningococcal Vaccine Unknown Completed [facility] Meningococcal Vaccine Unknown Completed [facility] MMR Unknown Completed [facility] MMR Unknown Completed [facility] Polio (IPV/OPV) Unknown [facility]V) [facility] Completed [facility] Polio (IPV/OPV) Unknown Completed [facility] Polio (IPV/OPV) Unknown Completed [facility] Varicella (varivax)(chicken pox) Unknown Completed [facility] Varicella (varivax)(chicken pox) Unknown Completed [facility] Meningococcal B, OMV Unknown Completed [facility] Influenza Virus Vaccine Quad .5 mL IM 6+ MO (FLUZONE/FLULAVAL/F LUARIX) Unknown Completed [facility] TDAP Unknown Completed [facility] SARS-COV-2 COVID-19 PFIZER VACCINE Unknown Completed [facility] Influenza Virus Vaccine Quad IM, Preserv and ABX Free 6 MO-64 YRS (FLUCELVAX) Unknown Completed [facility] TDAP Unknown Completed [facility] TDAP (ADACEL) VACCINE Unknown Completed [facility] DTP Unknown Completed [facility] DTP Unknown Completed [facility] DTP Unknown Completed [facility] DTP Unknown Completed [facility] HIB 3 Dose Schedule Unknown Completed [facility] HIB 3 Dose Schedule Unknown Completed [facility] Hep B, Adol or Pedi Dosage Unknown Completed [facility] Hep B, Adol or Pedi Dosage Unknown Completed [facility] Hep B, Adol or Pedi Dosage Unknown Completed [facility] Hep B, Adol or Pedi Dosage Unknown Completed [facility] HPV Unknown Completed [facility] HPV Unknown Completed [facility] Meningococcal Vaccine Unknown Completed [facility] Meningococcal Vaccine Unknown Completed [facility] MMR Unknown Completed [facility] MMR Unknown Completed [facility] Polio (IPV/OPV) Unknown Completed [facility] Polio (IPV/OPV) Unknown Completed [facility] Polio (IPV/OPV) Unknown Completed [facility] Polio (IPV/OPV) Unknown Completed [facility] Varicella (varivax)(chicken pox) Unknown Completed [facility] Varicella (varivax)(chicken pox) Unknown Completed [facility] Meningococcal B, OMV Unknown Completed [facility] Influenza Virus Vaccine Quad .5 mL IM 6+ MO (FLUZONE/FLULAVAL/F LUARIX) Unknown Completed [facility] TDAP Unknown Completed [facility] SARS-COV-2 COVID-19 PFIZER VACCINE Unknown Completed [facility] Influenza Virus Vaccine Quad IM, Preserv and ABX Free 6 MO-64 YRS (FLUCELVAX) Unknown Completed [facility] TDAP Unknown Completed [facility] TDAP (ADACEL) VACCINE Unknown Completed [facility] DTP Unknown Completed [facility] DTP Unknown Completed [facility] DTP Unknown Completed [facility] DTP Unknown Completed [facility] HIB 3 Dose Schedule Unknown Completed [facility] HIB 3 Dose Schedule Unknown Completed [facility] Hep B, Adol or Pedi Dosage Unknown Completed [facility] Hep B, Adol or Pedi Dosage Unknown Completed [facility] Hep B, Adol or Pedi Dosage Unknown Completed [facility] Hep B, Adol or Pedi Dosage Unknown Completed [facility] HPV Unknown Completed [facility] HPV Unknown Completed [facility] Meningococcal Vaccine Unknown Completed [facility] Meningococcal Vaccine Unknown Completed [facility] MMR Unknown Completed [facility] MMR Unknown Completed [facility] Polio (IPV/OPV) Unknown Completed [facility] Polio (IPV/OPV) Unknown Completed [facility] Polio (IPV/OPV) Unknown Completed [facility] Polio (IPV/OPV) Unknown Completed [facility] Varicella (varivax)(chicken pox) Unknown Completed [facility] Varicella (varivax)(chicken pox) Unknown Completed [facility] Meningococcal B, OMV Unknown Completed [facility] Influenza Virus Vaccine Quad .5 mL IM 6+ MO (FLUZONE/FLULAVAL/F LUARIX) Unknown Completed [facility] TDAP Unknown Completed [facility] SARS-COV-2 COVID-19 PFIZER VACCINE Unknown Completed [facility] Influenza Virus Vaccine Quad IM, Preserv and ABX Free 6 MO-64 YRS (FLUCELVAX) Unknown Completed [facility] TDAP Unknown Completed [facility] Vital Signs Vital Name Observation Time Observation Value Comments S ource Systolic blood pressure 2023-12-28 21:29:00 123 mm[Hg] [facility] Diastolic blood pressure 2023-12-28 21:29:00 66 mm[Hg] [facility] Heart rate 2023-12-28 21:29:00 93 /min [facility] Body temperature 2023-12-28 21:29:00 35.72 [facility] Respiratory rate 2023-12-28 21:29:00 18 /min [facility] Body height 2023-12-28 21:29:00 165.1 cm [facility] Body weight 2023-12-28 21:29:00 70.126 kg [facility] BMI 2023-12-28 21:29:00 25.73 kg/m2 [facility] Systolic blood pressure 2023-11-21 20:06:00 131 mm[Hg] [facility] Diastolic blood pressure 2023-11-21 20:06:00 78 mm[Hg] [facility] Heart rate 2023-11-21 20:06:00 93 /min [facility] Body temperature 2023-11-21 20:06:00 36.83 Rad[facility] Respiratory rate 2023-11-21 20:06:00 18 /min [facility] Body height 2023-11-21 20:06:00 165.1 cm [facility] Body weight 2023-11-21 20:06:00 59.194 kg [facility] BMI 2023-11-21 20:06:00 21.72 kg/m2 [facility] Systolic blood pressure 2023-10-21 15:48:00 115 mm[Hg] [facility] Diastolic blood pressure 2023-10-21 15:48:00 74 mm[Hg] [facility] Heart rate 2023-10-21 15:48:00 102 /min [facility] Body temperature 2023-10-21 15:48:00 36.78 Rad[facility] Respiratory rate 2023-10-21 15:48:00 17 /min [facility] Body height 2023-10-21 15:48:00 165.1 cm [facility] Body weight 2023-10-21 15:48:00 55.611 kg [facility] BMI 2023-10-21 15:48:00 20.40 kg/m2 [facility] Systolic blood pressure 2023-09-02 16:22:00 114 mm[Hg] [facility] Diastolic blood pressure 2023-09-02 16:22:00 79 mm[Hg] [facility] Heart rate 2023-09-02 16:22:00 91 /min [facility] Body temperature 2023-09-02 16:22:00 36.61 Rad[facility] Respiratory rate 2023-09-02 16:22:00 19 /min [facility] Body height 2023-09-02 16:22:00 165.1 cm [facility] Body weight 2023-09-02 16:22:00 53.343 kg [facility] BMI 2023-09-02 16:22:00 19.57 kg/m2 [facility] Systolic blood pressure 2023-08-25 01:15:00 115 mm[Hg] [facility] Diastolic blood pressure 2023-08-25 01:15:00 78 mm[Hg] [facility] Heart rate 2023-08-25 01:15:00 76 /min [facility] Body temperature 2023-08-25 01:15:00 37 Rad[facility] Respiratory rate 2023-08-25 01:15:00 16 /min [facility] Oxygen saturation in Arterial blood by Pulse oximetry 2023-08-25 01:15:00 98 /min [facility] Systolic blood pressure 2023-08-16 16:10:00 117 mm[Hg] [facility] Diastolic blood pressure 2023-08-16 16:10:00 80 mm[Hg] [facility] Heart rate 2023-08-16 16:10:00 76 /min [facility] Body temperature 2023-08-16 16:10:00 35.67 Rad[facility] Respiratory rate 2023-08-16 16:10:00 18 /min [facility] Body height 2023-08-16 16:10:00 165.1 cm [facility] Body weight 2023-08-16 16:10:00 53.252 kg [facility] BMI 2023-08-16 16:10:00 19.54 kg/m2 [facility] Systolic blood pressure 2023-08-05 10:18:00 109 mm[Hg] [facility] Diastolic blood pressure 2023-08-05 10:18:00 77 mm[Hg] [facility] Heart rate 2023-08-05 10:18:00 94 /min [facility] Body temperature 2023-08-05 10:18:00 37 Radha [facility] Respiratory rate 2023-08-05 10:18:00 18 /min [facility] Oxygen saturation in Arterial blood by Pulse oximetry 2023-08-05 10:18:00 97 /min [facility] Body height 2023-08-05 07:59:00 165.1 cm [facility] Body weight 2023-08-05 07:59:00 57.153 kg [facility] BMI 2023-08-05 07:59:00 20.97 kg/m2 [facility] Systolic blood pressure 2023-07-13 18:54:00 132 mm[Hg] [facility] Diastolic blood pressure 2023-07-13 18:54:00 77 mm[Hg] [facility] Heart rate 2023-07-13 18:54:00 92 /min [facility] Body temperature 2023-07-13 18:54:00 36.94 Rad[facility] Respiratory rate 2023-07-13 18:54:00 16 /min [facility] Body height 2023-07-13 18:54:00 165.1 cm [facility] Body weight 2023-07-13 18:54:00 55.339 kg [facility] BMI 2023-07-13 18:54:00 20.30 kg/m2 [facility] Systolic blood pressure 2023-06-28 21:07:00 112 mm[Hg] [facility] Diastolic blood pressure 2023-06-28 21:07:00 91 mm[Hg] [facility] Heart rate 2023-06-28 21:07:00 98 /min [facility] Body temperature 2023-06-28 21:07:00 37.39 [facility] Respiratory rate 2023-06-28 21:07:00 16 /min [facility] Body height 2023-06-28 21:07:00 165.1 cm [facility] Body weight 2023-06-28 21:07:00 54.432 kg [facility] BMI 2023-06-28 21:07:00 19.97 kg/m2 [facility] Oxygen saturation in Arterial blood by Pulse oximetry 2023-06-28 21:07:00 98 /min [facility] Systolic blood pressure 2023-06-14 16:47:00 136 mm[Hg] [facility] Diastolic blood pressure 2023-06-14 16:47:00 84 mm[Hg] [facility] Heart rate 2023-06-14 15:56:00 89 /min [facility] Body temperature 2023-06-14 15:56:00 37 [facility] Respiratory rate 2023-06-14 15:56:00 18 /min [facility] Body height 2023-06-14 15:56:00 165.1 cm [facility] Body weight 2023-06-14 15:56:00 54.477 kg [facility] BMI 2023-06-14 15:56:00 19.99 kg/m2 [facility] Oxygen saturation in Arterial blood by Pulse oximetry 2023-06-14 15:56:00 98 /min [facility] Systolic blood pressure 2023-03-11 16:57:00 124 mm[Hg] [facility] Diastolic blood pressure 2023-03-11 16:57:00 76 mm[Hg] [facility] Heart rate 2023-03-11 16:57:00 105 /min [facility] Body temperature 2023-03-11 16:57:00 36.89 [facility] Respiratory rate 2023-03-11 16:57:00 16 /min [facility] Body height 2023-03-11 16:57:00 165.1 cm [facility] Body weight 2023-03-11 16:57:00 53.071 kg [facility] BMI 2023-03-11 16:57:00 19.47 kg/m2 [facility] Oxygen saturation in Arterial blood by Pulse oximetry 2023-03-11 16:57:00 98 /min [facility] Systolic blood pressure 2022-12-09 02:29:00 122 mm[Hg] [facility] Diastolic blood pressure 2022-12-09 02:29:00 86 mm[Hg] [facility] Heart rate 2022-12-09 02:29:00 74 /min [facility] Body temperature 2022-12-09 02:29:00 37.11 [facility] Respiratory rate 2022-12-09 02:29:00 18 /min [facility] Body height 2022-12-09 02:29:00 165.1 cm [facility] Body weight 2022-12-09 02:29:00 55.792 kg [facility] BMI 2022-12-09 02:29:00 20.47 kg/m2 [facility] Oxygen saturation in Arterial blood by Pulse oximetry 2022-12-09 02:29:00 100 /min [facility] Systolic blood pressure 2022-10-14 17:22:00 122 mm[Hg] [facility] Diastolic blood pressure 2022-10-14 17:22:00 74 mm[Hg] [facility] Heart rate 2022-10-14 17:22:00 67 /min [facility] Respiratory rate 2022-10-14 17:22:00 18 /min [facility] Body height 2022-10-14 17:22:00 165.1 cm [facility] Body weight 2022-10-14 17:22:00 55.792 kg [facility] BMI 2022-10-14 17:22:00 20.47 kg/m2 [facility] Oxygen saturation in Arterial blood by Pulse oximetry 2022-10-14 17:22:00 100 /min [facility] Systolic blood pressure 2022-10-13 01:14:00 148 mm[Hg] [facility] Diastolic blood pressure 2022-10-13 01:14:00 93 mm[Hg] [facility] Heart rate 2022-10-13 01:13:00 65 /min [facility] Body temperature 2022-10-13 01:13:00 37 Rad[facility] Respiratory rate 2022-10-13 01:13:00 18 /min [facility] Body height 2022-10-13 01:13:00 162.6 cm [facility] Body weight 2022-10-13 01:13:00 56.019 kg [facility] BMI 2022-10-13 01:13:00 21.20 kg/m2 [facility] Oxygen saturation in Arterial blood by Pulse oximetry 2022-10-13 01:13:00 100 /min [facility] Systolic blood pressure 2022-09-21 17:33:00 129 mm[Hg] [facility] Diastolic blood pressure 2022-09-21 17:33:00 88 mm[Hg] [facility] Heart rate 2022-09-21 17:33:00 64 /min [facility] Body temperature 2022-09-21 17:33:00 36.72 [facility] Respiratory rate 2022-09-21 17:33:00 16 /min [facility] Body height 2022-09-21 17:33:00 165.1 cm [facility] Body weight 2022-09-21 17:33:00 56.881 kg [facility] BMI 2022-09-21 17:33:00 20.87 kg/m2 [facility] Systolic blood pressure 2022-04-23 15:42:00 113 mm[Hg] [facility] Diastolic blood pressure 2022-04-23 15:42:00 75 mm[Hg] [facility] Respiratory rate 2022-04-23 15:42:00 18 /min [facility] Body height 2022-04-23 15:42:00 165.1 cm [facility] Body weight 2022-04-23 15:42:00 59.875 kg [facility] BMI 2022-04-23 15:42:00 21.97 kg/m2 [facility] BP Diastolic 2021-04-29 00:00:00 83 mm[Hg] [facility] Height 2021-04-29 00:00:00 65 [in_i] [facility] BMI (Body Mass Index) 2021-04-29 00:00:00 22.7 kg/m2 [facility] BP Systolic 2021-04-29 00:00:00 122 mm[Hg] [facility] Body Weight 2021-04-29 00:00:00 2182.4 [oz_av] [facility] BP Diastolic 2020-12-18 00:00:00 75 mm[Hg] [facility] Height 2020-12-18 00:00:00 65 [in_i] [facility] BMI (Body Mass Index) 2020-12-18 00:00:00 24.3 kg/m2 [facility] BP Systolic 2020-12-18 00:00:00 130 mm[Hg] [facility] Body Weight 2020-12-18 00:00:00 2332.8 [oz_av] [facility] BP Diastolic 2020-10-09 00:00:00 79 mm[Hg] [facility] Height 2020-10-09 00:00:00 65 [in_i] [facility] BMI (Body Mass Index) 2020-10-09 00:00:00 24 kg/m2 [facility] BP Systolic 2020-10-09 00:00:00 124 mm[Hg] [facility] Body Weight 2020-10-09 00:00:00 2310.4 [oz_av] [facility] Procedures Procedure Date / Time Performed Performing Clinician Source TDAP VACCINE, >11 YRS, IM 2023-12-28 21:37:19 Gina Shine [facility] POCT URINALYSIS 2023-12-28 21:33:00 Gina Shine [facility] SECOND AND THIRD TRIMESTER ULTRASOUND 2023-11-22 20:15:51 Gina Shine [facility] GALV ONLY - VAGINAL PATHOGENS BY NUCLEIC ACID TESTING 2023-11-21 20:15:00 Gina Shine [facility] GC & CHLAMYDIA AMPLIFIED ASSAY 2023-11-21 20:10:00 Gina Shine [facility] POCT URINALYSIS 2023-11-21 20:07:00 Gina Shine [facility] POCT URINALYSIS 2023-10-21 16:40:00 Gina Shine [facility] ASSIGNMENT OF BENEFITS 2023-10-21 15:40:17 Docto r Unassigned, [facility] POCT URINALYSIS 2023-09-02 16:47:00 Gina Shine [facility] RAPID INFLUENZA A/B 2023-08-25 01:44:00 Sammie Hendrickson [facility] COVID-19 (ID NOW RAPID TESTING) 2023-08-25 01:44:00 Sammie Hendrickson [facility] US FIRST TRIMESTER LESS THAN 14 WEEKS 2023-08-25 01:20:00 Sammie Hendrickson [facility] FIRST TRIMESTER ULTRASOUND 2023-08-19 17:08:00 Gina Shine [facility] SCANNED LAB RESULTS 2023-08-19 06:01:00 Doctor Anitha melgar, [facility] POCT URINALYSIS 2023-08-16 16:12:00 Gina Shine [facility] CONSENT FOR NIPT 2023-08-16 06:01:00 Doctor Figueroa signed, [facility] LIPASE 2023-08-05 08:41:00 Madhavi Sweeney [facility] COMP. METABOLIC PANEL ([id number]) 2023-08-05 08:41:00 Madhavi Sweeney [facility] CBC WITH DIFF 2023-08-05 08:41:00 Madhavi Sweeney [facility] URINALYSIS 2023-08-05 08:41:00 Madhavi Sweeney [facility] CONSENT/REFUSAL FOR DIAGNOSIS AND TREATMENT 2023-08-05 07:54:25 Doctor Unassigned, [facility] POCT URINALYSIS 2023-07-13 21:48:00 Gina Shine [facility] FLU VACC (), 6 MO-64 YRS, .5ML, IM, QUAD (FLUCELVAX) 2023-07-13 19:03:03 Gina Shine [facility] POCT TEST 2023-07-13 18:53:00 Sully Bailey [facility] POCT URINALYSIS W/O SPECIFIC GRAVITY 2023-07-13 18:53:00 Le Bailey [facility] REPORT OF 2023-07-13 06:01:00 Doctor Anitha melgar, [facility] RAPID INFLUENZA A/B 2023-06-28 21:28:00 Monserrat Ledezma [facility] COVID-19 (ID NOW RAPID TESTING) 2023-06-28 21:28:00 Donna Ledezma [facility] CONSENT/REFUSAL FOR DIAGNOSIS AND TREATMENT 2023-06-28 20:50:21 Doctor Unassigned, [facility] CONSENT/REFUSAL FOR DIAGNOSIS AND TREATMENT 2023-03-11 17:50:43 Doctor Unassigned, [facility] URINE DRUG (IMMUNOASSAY) - COMPREHENSIVE DRUG SCREEN 2022-12-09 03:01:00 Hitesh Diaz [facility] NOTICE OF PRIVACY PRACTICES 2022-12-09 02:28:46 Doctor Unassigned, [facility] CONSENT/REFUSAL FOR DIAGNOSIS AND TREATMENT 2022-12-09 02:22:51 Doctor Unassigned, [facility] THYROID STIMULATING HORMONE 2022-10-14 17:38:00 Natalia Coronado [facility] COMP. METABOLIC PANEL ([id number]) 2022-10-14 17:38:00 Natalia Coronado [facility] IRON PANEL 2022-10-14 17:38:00 Natalia Coronado [facility] CBC WITH DIFF 2022-10-14 17:38:00 [facility] 2022-10-14 17:38:00 [facility] POCT URINALYSIS 2022-10-13 01:24:00 Yanci Jeronimo [facility] POCT TEST 2022-10-13 01:17:00 [facility] FIN[facility] POLICY 2022-10-13 00:49:27 Doctor Unassigned, [facility] ASSIGNMENT OF BENEFITS 2022-09-21 17:18:28 Docto r Unassigned, [facility] POCT TEST 2022-04-23 00:00:00 Cisco Jensen [facility] XR, chest, 2 view 2020-10-09 00:00:00 [facility] Knee Surgery [facility] Plan of Care Planned Activity Planned Date Details Comments Source Diagnostic Test Pending 2021-04-29 00:00:00 rapid strep group A, throat [code = rapid strep group A, throat] [facility] Diagnostic Test Pending 2021-04-29 00:00:00 rapid SARS CoV 2 Ag, QL IA, respiratory specimen [code = rapid SARS CoV 2 Ag, QL IA, respiratory specimen] [facility] Instructions [facility] Encounters Start Date/Time End Date/Time Encounter Type Admission Type Attending Clinicians Care Facility Care Department Encounter ID Source 2023-08-24 21:32:02 Outpatient P [facility] [place] [id number] 2021-06-06 10:26:55 Outpatient P [facility] [id number] [facility] 2021-06-06 00:41:36 Outpatient P [facility] [place] [id number] [facility] 2021-06-06 00:37:48 Outpatient P [facility] [place] [id number] [facility] 2021-06-05 17:45:18 Emergency [facility] [id number] [facility] 2021-06-05 07:07:05 Outpatient P [facility] [place] [id number] [facility] 2021-06-05 06:57:02 Outpatient P [facility] [place] [id number] [facility] 2021-06-05 05:03:32 Emergency [facility] [id number] [facility] 2021-06-04 22:45:53 Emergency [facility] [id number] [facility] 2024-01-13 15:30:00 2024-01-13 15:30:00 Outpatient R GINA SHINE [facility] [id number] [facility] 2024-01-12 15:45:00 2024-01-12 15:45:00 Outpatient R GINA SHINE [facility] [id number] [facility] 2023-12-28 16:15:00 2023-12-28 16:52:25 Outpatient R GINA SHINE [facility] [id number] 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 2023-12-19 10:45:00 2023-12-19 10:45:00 Outpatient R GINA SHINE [facility] [id number] [facility] 2023-12-06 12:45:00 2023-12-06 12:45:00 Outpatient R GINA SHINE [facility] [id number] 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 2023-11-24 00:00:00 2023-11-24 00:00:00 Telephone Gina Shine [facility] BONDING EQUIPMENT OPERATOR [facility] 1.2.840.114 350.1.13.10 4.2.7.2.[id number] [facility] 2023-11-22 11:00:00 2023-11-22 11:56:52 Outpatient P ANAID DELACRUZ [facility] [id number] [facility] 2023-11-22 11:00:00 2023-11-22 11:56:52 Associate Account Manager Visit 1, [facility] Room Anaid Delacruz [facility] BONDING EQUIPMENT OPERATOR [facility] 1.2.840.114 350.1.13.10 4.2.7.2.[id number] [facility] 2023-11-22 00:00:00 2023-11-22 00:00:00 Telephone System, Amb Referring Provider Not In [facility] BONDING EQUIPMENT OPERATOR [facility] 1.2.840.114 350.1.13.10 4.2.7.2.[id number] [facility] 2023-11-21 15:00:00 2023-11-21 15:42:20 Outpatient R GINA SHINE [facility] [id number] [facility] 2023-11-21 15:00:00 2023-11-21 15:42:20 Routine Visit Gina Shine [facility] BONDING EQUIPMENT OPERATOR [facility] 1..840.114 350.1.13.10 4.2.7.2.[id number] [facility] 2023-11-18 12:45:00 2023-11-18 12:45:00 Outpatient R GINA SHINE [facility] [id number] [facility] 2023-11-15 14:30:00 2023-11-15 14:30:00 Outpatient P CHRISSY MCNEIL [facility] [id number] [facility] 2023-11-11 09:45:00 2023-11-11 10:49:42 Outpatient JEYSON BALLARD [facility] [id number] [facility] 2023-11-11 09:45:00 2023-11-11 10:49:42 Telemedici ne Visit Wen Bloom Joseph W [facility] BONDING EQUIPMENT OPERATOR [facility] 1..840.114 350.1.13.10 4.2.7.2.[id number] [facility] 2023-11-03 16:00:00 2023-11-03 16:00:00 Outpatient R GINA SHINE [facility] [id number] [facility] 2023-10-21 11:00:00 2023-10-21 11:36:28 Outpatient R GINA SHINE [facility] [id number] [facility] 2023-10-21 11:00:00 2023-10-21 11:36:28 Routine Visit Gina Shien [facility] BONDING EQUIPMENT OPERATOR [facility] 1..840.114 350.1.13.10 4.2.7.2.[id number] [facility] 2023-10-21 00:00:00 2023-10-21 00:00:00 Orders Only Doctor Unassigned, [facility] 1.2840.114 350.1.13.10 4.2.7.2.[id number] [facility] 2023-10-11 08:00:00 2023-10-11 08:00:00 Outpatient R GINA SHINE [facility] [id number] [facility] 2023-09-30 12:45:00 2023-09-30 12:45:00 Outpatient R GINA SHINE [facility] [id number] [facility] 2023-09-13 12:45:00 2023-09-13 12:45:00 Outpatient R GINA SHINE [facility] [id number] [facility] 2023-09-12 00:00:00 2023-09-12 00:00:00 Telephone Wen Bloom [facility] [place] 1..840.114 350.1.13.10 4.2.7.2.[id number] [facility] 2023-09-05 00:00:00 2023-09-05 00:00:00 Telephone Gina Shine [facility] BONDING EQUIPMENT OPERATOR [facility] MATERNAL [facility] 1.2.840.114 350.1.13.10 4.2.7.2.[id number] [facility] 2023-09-02 10:15:00 2023-09-02 10:30:00 Routine Visit Gina Shine [facility] BONDING EQUIPMENT OPERATOR [facility] 1.840.114 350.1.13.10 4.2.7.2.[id number] [facility] 2023-09-02 10:15:00 2023-09-02 10:15:00 Outpatient R GINA SHINE [facility] [id number] [facility] 2023-08-29 12:45:00 2023-08-29 12:45:00 Outpatient R GINA SHINE [facility] [id number] [facility] 2023-08-26 00:00:00 2023-08-26 00:00:00 Patient Secure Msg Doctor Unassigned, [facility] 1.0.114 350.1.13.10 4.2.7.2.[id number] [facility] 2023-08-24 17:26:00 2023-08-24 21:00:00 Outpatient P SAMMIE HENDRICKSON [facility] [id number] [facility] 2023-08-24 17:26:00 2023-08-24 21:00:00 Hospital Encounter Sammie Hendrickson Gi[facility] 1..114 350.1.13.10 4.2.7.2.[id number] [facility] 2023-08-19 15:15:00 2023-08-19 15:15:00 Outpatient P [facility] [id number] [facility] 2023-08-19 10:30:00 2023-08-19 11:15:37 Outpatient P RADHA CLEMONS [facility] [id number] [facility] 2023-08-19 10:30:00 2023-08-19 11:15:37 Associate Account Manager Visit Ultrasound, Alin [facility] BONDING EQUIPMENT OPERATOR [facility] ..114 350.1.13.10 4.2.7.2.[id number] [facility] 2023-08-19 08:30:00 2023-08-19 10:47:24 Associate Account Manager Visit Lab, Deepak [facility] BONDING EQUIPMENT OPERATOR [facility] 1.0.114 350.1.13.10 4.2.7.2.[id number] [facility] 2023-08-19 00:00:00 2023-08-19 00:00:00 Case Management Le Bailey [facility] BONDING EQUIPMENT OPERATOR [facility] 1.284.114 350.1.13.10 4.2.7.2.[id number] [facility] 2023-08-19 00:00:00 2023-08-19 00:00:00 Orders Only Doctor Unassigned, [facility] 1.840.114 350.1.13.10 4.2.7.2.[id number] [facility] 2023-08-16 08:30:00 2023-08-16 11:30:26 Routine Visit Gina Shine [facility] 1.84.114 350.1.13.10 4.2.7.2.[id number] [facility] 2023-08-16 08:00:00 2023-08-16 08:00:00 Outpatient R GINA SHINE [facility] [id number] [facility] 2023-08-16 00:00:00 2023-08-16 00:00:00 Orders Only Doctor Unassigned, [facility] 1..114 350.1.13.10 4.2.7.2.[id number] [facility] 2023-08-15 00:00:00 2023-08-15 00:00:00 Letter (Out) Gina Shine [facility]ING [facility]QUIP[facility] 1.84.114 350.1.13.10 4.2.7.2.[id number] [facility] 2023-08-15 00:00:00 2023-08-15 00:00:00 Refill Obi-Marino , [facility] 1.2840.114 350.1.13.10 4.2.7.2.[id number] [facility] 2023-08-05 02:03:00 2023-08-05 04:24:00 Emergency X MADHAVI SWEENEY [facility] ERT [id number] [facility] 2023-08-05 02:03:00 2023-08-05 04:24:00 Emergency Madhavi Sweeney [facility] 1.2840.114 350.1.13.10 4.2.7.2.[id number] [facility] 2023-07-25 00:00:00 2023-07-25 00:00:00 Telephone Gina Shine [facility] BONDING EQUIPMENT OPERATOR [facility] 1.2840.114 350.1.13.10 4.2.7.2.[id number] [facility] 2023-07-18 00:00:00 2023-07-18 00:00:00 Patient Secure Msg Doctor Unassigned, [facility] 1.2840.114 350.1.13.10 4.2.7.2.[id number] [facility] 2023-07-15 14:00:00 2023-07-15 14:00:00 Outpatient SVITLANA CORTES [facility] [id number] [facility] 2023-07-15 00:00:00 2023-07-15 00:00:00 [facility] 1.2.840.114 350.1.13.10 4.2.7.2.[id number] [facility] 2023-07-15 00:00:00 2023-07-15 00:00:00 Telephone Gina Shine [facility] BONDING EQUIPMENT OPERATOR [facility] 1.2.840.114 350.1.13.10 4.2.7.2.[id number] [facility] 2023-07-13 13:00:00 2023-07-13 14:23:31 Outpatient R GINA SHINE [facility] [id number] [facility] 2023-07-13 13:00:00 2023-07-13 14:23:31 Initial Visit Fátima Gina Leigh [facility] BONDING EQUIPMENT OPERATOR [facility] 1.2.840.114 350.1.13.10 4.2.7.2.[id number] [facility] 2023-07-13 00:00:00 2023-07-13 00:00:00 Orders Only Doctor Unassigned, [facility] 1..840.114 350.1.13.10 4.2.7.2.[id number] [facility] 2023-06-28 15:08:00 2023-06-28 16:15:00 Emergency X DONNA LEDEZMA [facility] ERT [id number] [facility] 2023-06-28 15:08:00 2023-06-28 16:15:00 Emergency Donna Ledezma [facility] 1..840.114 350.1.13.10 4.2.7.2.[id number] [facility] 2023-06-22 15:40:00 2023-06-22 15:40:00 Outpatient R MARCO ANTONIO DOUGHERTY UZOMA [facility] [id number] [facility] 2023-06-17 10:00:00 2023-06-17 10:20:00 Nurse Visit [facility], [facility]el [facility] 1.2.840.114 350.1.13.10 4.2.7.2.[id number] [facility] 2023-06-17 10:00:00 2023-06-17 10:00:00 Outpatient R OBI-MARINO MARCO ANTONIO OBI-MARINO , MARCO ANTONIO [facility] [id number] [facility] 2023-06-16 10:00:00 2023-06-16 10:00:00 Outpatient R [facility] [id number] [facility] 2023-06-14 10:00:00 2023-06-14 10:46:52 Outpatient R OBI-MARINO [facility]CO [facility] [id number] 2023-06-14 10:00:00 2023-06-14 10:46:52 Office Visit Obi-Marco Antonio Drake [facility] [id number] [facility] 2023-06-14 00:00:00 2023-06-14 00:00:00 [facility] [id number] [facility] 2023-06-09 08:00:00 2023-06-09 08:00:00 Outpatient R NATALIA CORONADO [facility] [id number] [facility] 2023-03-11 13:21:00 2023-03-11 13:22:00 Emergency X MADAN BADILLO [facility] ERT [id number] [facility] 2023-03-11 13:21:00 2023-03-11 13:22:00 Emergency Madan Badillo [facility] 1..840.114 350.1.13.10 4.2.7.2.[id number] [facility] 2023-03-11 12:00:00 2023-03-11 12:20:00 Urgent Care PhaniaYnci Unknown, Attending [facility] 1.2.840.114 350.1.13.10 4.2.7.2.[id number] [facility] 2023-03-11 12:00:00 2023-03-11 12:00:00 Outpatient YANCI FLORES [facility] [id number] [facility] 2023-03-11 00:00:00 2023-03-11 00:00:00 Telephone Svitlana Le [facility] N[facility] 1..840.114 350.1.13.10 4.2.7.2.[id number] [facility] 2023-02-01 14:30:00 2023-02-01 14:30:00 Outpatient NATALIA CEE [facility] [id number] [facility] 2022-12-08 21:35:00 2022-12-08 23:17:00 Emergency X HITESH DIAZ [facility] ERT [id number] [facility] 2022-12-08 21:35:00 2022-12-08 23:17:00 Emergency Hitesh Diaz [facility] 1..840.114 350.1.13.10 4.2.7.2.[id number] [facility] 2022-12-07 09:30:00 2022-12-07 09:30:00 Outpatient SVITLANA CORTES [facility] [id number] [facility] 2022-11-05 09:30:00 2022-11-05 09:30:00 Outpatient R SVITLANA LE [facility] [id number] [facility] 2022-11-01 10:00:00 2022-11-01 10:00:00 Outpatient R NATALIA CORONADO [facility] [id number] [facility] 2022-10-20 15:30:00 2022-10-20 15:30:00 Outpatient R JELENALORENZO [facility] [id number] [facility] 2022-10-18 00:00:00 2022-10-18 00:00:00 Patient Secure Msg Doctor Unassigned, [facility] 1..840.114 350.1.13.10 4.2.7.2.[id number] [facility] 2022-10-14 11:30:00 2022-10-14 11:45:00 Associate Account Manager Visit 2, Adc Lab Natalia Coronado [facility] 1..840.114 350.1.13.10 4.2.7.2.[id number] [facility] 2022-10-14 11:00:00 2022-10-14 11:33:29 Outpatient R NATALIA CORONADO [facility] [id number] [facility] 2022-10-14 11:00:00 2022-10-14 11:33:29 Office Visit Natalia Coronado [facility] 1..840.114 350.1.13.10 4.2.7.2.[id number] [facility] 2022-10-13 00:00:00 2022-10-13 00:00:00 Letter (Out) Yanci Jeronimo [facility] 1..840.114 350.1.13.10 4.2.7.2.[id number] [facility] 2022-10-12 19:00:00 2022-10-12 19:32:31 Outpatient R YANCI JERONIMO [facility] [id number] [facility] 2022-10-12 19:00:00 2022-10-12 19:32:31 Urgent Care Yanci Jeronimo Unknown, Attending [facility] 1.284.114 350.1.13.10 4.2.7.2.[id number] [facility] 2022-10-12 00:00:00 2022-10-12 00:00:00 Orders Only Doctor Unassigned, [facility] 1.2840.114 350.1.13.10 4.2.7.2.[id number] [facility] 2022-09-21 11:30:00 2022-09-21 12:01:19 Outpatient R BRIONNA JENSEN CHERYAL [facility] [id number] [facility] 2022-09-21 11:30:00 2022-09-21 12:01:19 Office Visit Brionna Jensen [facility] 1.84.114 350.1.13.10 4.2.7.2.[id number] [facility] 2022-09-21 00:00:00 2022-09-21 00:00:00 Orders Only Doctor Unassigned, [facility] 1.84.114 350.1.13.10 4.2.7.2.[id number] [facility] 2022-08-06 13:30:00 2022-08-06 13:30:00 Outpatient R SVITLANA LE [facility] [id number] [facility] 2022-04-26 09:30:00 2022-04-26 09:30:00 Outpatient R BRIONNA JENSEN CHERYAL [facility] [id number] [facility] 2022-04-23 10:00:00 2022-04-23 10:15:00 Nurse Visit Nurse, L[facility] 1.840.114 350.1.13.10 4.2.7.2.[id number] [facility] 2022-04-23 10:00:00 2022-04-23 10:00:00 Outpatient R BRIONNA JENSEN CHERYAL [facility] [id number] [facility] 2022-04-21 11:00:00 2022-04-21 11:42:59 Outpatient R BRIONNA JENSEN CHERYAL [facility] [id number] [facility] 2022-04-21 11:00:00 2022-04-21 11:42:59 Office Visit Brionna Jensen [facility] 1.84.114 350.1.13.10 4.2.7.2.[id number] [facility] 2022-04-21 00:00:00 2022-04-21 00:00:00 Telephone Heaven Daugherty [facility] 1..114 350.1.13.10 4.2.7.2.[id number] [facility] 2022-03-05 00:00:00 2022-03-05 00:00:00 Telephone Svitlana Le [facility] TYLER NI[facility] 1.2840.114 350.1.13.10 4.2.7.2.[id number] [facility] 2022-03-04 00:00:00 2022-03-04 00:00:00 Case Management Belinda Fern[facility] 1..114 350.1.13.10 4.2.7.2.[id number] [facility] 2022-03-03 15:30:00 2022-03-03 15:30:06 Office Visit AdumSvitlana [facility] 1.840.114 350.1.13.10 4.2.7.2.[id number] [facility] 2022-03-03 15:30:00 2022-03-03 15:30:06 Outpatient R MIMI [facility] [id number] [facility] 2022-03-03 15:30:00 2022-03-03 15:30:00 Outpatient R MIMI [facility] [id number] [facility] 2022-01-06 14:00:00 2022-01-06 14:00:00 Outpatient R ROBERT BURNS [facility] [id number] [facility] 2021-11-12 00:00:00 2021-11-12 00:00:00 Telephone Adum, Svitlana Black [facility] 1..114 350.1.13.10 4.2.7.2.[id number] [facility] 2021-11-11 00:00:00 2021-11-11 00:00:00 Case Management Adum, Svitlana Black [facility] 1.2.114 350.1.13.10 4.2.7.2.[id number] [facility] 2021-11-10 13:45:00 2021-11-10 14:58:21 Office Visit Adum, Svitlana Black [facility] 1.840.114 350.1.13.10 4.2.7.2.[id number] [facility] 2021-11-10 13:45:00 2021-11-10 14:58:21 Outpatient R SVITLANA LE [facility] [id number] [facility] 2021-11-10 13:45:00 2021-11-10 13:45:00 Outpatient R MIMI [facility] [id number] [facility] 2021-09-14 04:40:00 2021-09-14 06:57:00 Emergency X MADHAVI SWEENEY [facility] ERT [id number] [facility] 2021-09-14 04:40:00 2021-09-14 06:57:00 Emergency Madhavi Sweeney [facility] 1.2.840.114 350.1.13.10 4.2.7.2.[id number] [facility] 2021-08-21 14:30:00 2021-08-21 14:30:00 Outpatient R MIMI [facility] [id number] [facility] 2021-08-20 00:00:00 2021-08-20 00:00:00 Telephone AdSvitlana reyes [facility] 1.2.840.114 350.1.13.10 4.2.7.2.[id number] [facility] 2021-08-06 13:00:00 2021-08-06 13:30:00 Office Visit Svitlana Le [facility] 1.2.840.114 350.1.13.10 4.2.7.2.[id number] [facility] 2021-08-06 13:00:00 2021-08-06 13:00:00 Outpatient R MIMI [facility] [id number] [facility] 2021-08-06 00:00:00 2021-08-06 00:00:00 Orders Only Doctor Unassigned, [facility] 1.840.114 350.1.13.10 4.2.7.2.[id number] [facility] 2021-07-27 12:14:00 2021-07-27 12:14:00 Outpatient WATERSS [facility] [id number] 2021-07-27 12:14:00 2021-07-27 12:14:00 Outpatient WATERSS [facility] [id number] [facility] 2021-07-21 09:54:22 2021-07-21 10:38:16 Office Visit AdSvitlana reyes [facility] 1.840.114 350.1.13.10 4.2.7.2.[id number] [facility] 2021-07-21 09:30:00 2021-07-21 10:38:16 Outpatient R ADAMY [facility] [id number] [facility] 2021-07-21 09:30:00 2021-07-21 09:30:00 Outpatient R ADUM [facility] [id number] [facility] 2021-07-21 00:00:00 2021-07-21 00:00:00 Orders Only Doctor Unassigned, [facility] 1.840.114 350.1.13.10 4.2.7.2.[id number] [facility] 2021-06-17 15:00:00 2021-06-17 15:00:00 Outpatient R ADAMY [facility] [id number] [facility] 2021-05-27 00:00:00 2021-05-27 00:00:00 Telephone AdSvitlana reyes [facility] 1..840.114 350.1.13.10 4.2.7.2.[id number] [facility] 2021-04-29 05:13:00 2021-04-29 05:13:00 Outpatient SCHAUBROECK _L [facility] [id number] 2021-04-29 00:00:00 2021-04-29 00:00:00 TARA Sánchez-C: [address] [facility], [address], [place] [address] , Ph. [facility] [id number] [facility] ty [facility] 2021-04-29 00:00:00 2021-04-29 00:00:00 Outpatient Fernanda Solorio [facility] [id number] 2021-03-22 11:00:30 2021-03-22 11:20:30 Laboratory Only Lab, Adc Fam Pob I Omaghomi, Omayemi [facility] 1.2.840.114 350.1.13.10 4.2.7.2.[id number] [facility] 2021-03-22 11:00:00 2021-03-22 11:00:00 Outpatient R [facility] [id number] [facility] 2020-12-18 04:30:00 2020-12-18 04:30:00 Outpatient SCHAUBROECK _L [facility] [id number] [facility] 2020-12-18 00:00:00 2020-12-18 00:00:00 Outpatient Fernanda Solorio [facility] [id number] 2020-12-18 00:00:00 2020-12-18 00:00:00 TARA Sánchez-C: [address] [facility], [address], [place] [address] , Ph. [facility] [id number] [facility] 2020-12-18 00:00:00 2020-12-18 00:00:00 Outpatient Fernanda Solorio [facility] [id number] 2020-11-25 13:00:00 2020-11-25 13:00:00 Outpatient R SVITLANA LE [facility] [id number] [facility] 2020-11-13 11:03:37 2020-11-13 11:18:37 Laboratory Only Only, Adc Test Iker Frias [facility] .114 350.1.13.10 4.2.7.2.[id number] [facility] 2020-11-13 10:45:00 2020-11-13 10:45:00 Outpatient IKER KEN [facility] [id number] [facility] 2020-11-13 00:00:00 2020-11-13 00:00:00 Orders Only Doctor Unassigned, [facility] .114 350.1.13.10 4.2.7.2.[id number] [facility] 2020-11-13 00:00:00 2020-11-13 00:00:00 Patient Secure Msg Doctor Unassigned, [facility] .114 350.1.13.10 4.2.7.2.[id number] [facility] 2020-10-29 00:00:00 2020-10-29 00:00:00 Telephone [facility] 1.114 350.1.13.10 4.2.7.2.[id number] [facility] 2020-10-28 13:00:00 2020-10-28 13:00:00 Outpatient R SVITLANA LE [facility] [id number] [facility] 2020-10-09 12:17:00 2020-10-09 12:17:00 Outpatient DAVID _L [facility] [id number] 2020-10-09 00:00:00 2020-10-09 00:00:00 Outpatient Fernanda Solorio [facility] [id number] 2020-10-09 00:00:00 2020-10-09 00:00:00 Fernanda lopez, AGNP-: [address] [place] [address], [address], [place] [address] , Ph. [facility] [id number] [facility] 2020-09-26 13:00:00 2020-09-26 13:00:00 Outpatient R SVITLANA LE [facility] [id number] [facility] 2020-09-09 08:20:16 2020-09-09 09:47:46 Routine Visit Svitlana Le [facility] 1.2.840.114 350.1.13.10 4.2.7.2.[id number] [facility] 2020-09-09 08:00:00 2020-09-09 08:00:00 Outpatient R SVITLANA LE [facility] [id number] [facility] 2020-09-05 08:15:00 2020-09-05 08:15:00 Outpatient R MIMI [facility] [id number] [facility] 2020-09-02 08:00:00 2020-09-02 08:00:00 Outpatient R ADUM, SVITLANA [facility] [id number] [facility] 2020 16:42:55 2020 17:01:05 Routine Visit Adum, Svitlana Black [facility] Professio nal Building 1.2840.114 350.1.13.10 4.2.7.2.[id number] [facility] 2020 16:00:00 2020 16:00:00 Outpatient R ADAMY, SVITLANA [facility] [id number] [facility] 2020-07-28 00:00:00 2020-07-28 00:00:00 Telephone Adum, Svitlana Black [facility] Profess[facility]al Building 1.2840.114 350.1.13.10 4.2.7.2.[id number] [facility] 2020-07-22 11:47:00 2020-07-24 20:40:00 Hospital Encounter Adum, John Magallon [facility] 1.2840.114 350.1.13.10 4.2.7.2.[id number] [facility] 2020-07-22 22:16:00 2020-07-23 19:41:00 Anesthesia Aaron Noe John M [facility] 1.2840.114 350.1.13.10 4.2.7.2.[id number] [facility] 2020-07-22 09:01:05 2020-07-22 09:16:05 Laboratory Only Only, Adc Test Jonathon Nugent [facility] 1.2.840.114 350.1.13.10 4.2.7.2.[id number] [facility] 2020-07-22 00:00:00 2020-07-22 00:00:00 Orders Only Doctor Unassigned, [facility] 1.20.114 350.1.13.10 4.2.7.2.[id number] [facility] 2020-07-21 10:30:00 2020-07-21 10:30:00 Outpatient R [facility] [id number] [facility] 2020-07-18 10:39:12 2020-07-18 12:04:13 Routine Visit Svitlana Le [facility] 1.284.114 350.1.13.10 4.2.7.2.[id number] [facility] 2020-07-18 09:04:16 2020-07-18 09:34:16 Associate Account Manager Visit Ultrasound, Adc Heaven Rios [facility] 1.2114 350.1.13.10 4.2.7.2.[id number] [facility] 2020-07-18 09:30:00 2020-07-18 09:30:00 Outpatient P [facility] [id number] [facility] 2020-07-18 00:00:00 2020-07-18 00:00:00 Orders Only Doctor Unassigned, [facility] 1.2.114 350.1.13.10 4.2.7.2.[id number] [facility] 2020-07-15 14:24:00 2020-07-17 09:55:00 Hospital Encounter John Edward [facility] 1.284.114 350.1.13.10 4.2.7.2.[id number] [facility] 2020-07-15 14:24:00 2020-07-17 09:55:00 Outpatient P JOHN EDWARD [facility] [place] [id number] [facility] 2020-07-16 10:30:00 2020-07-16 10:30:00 Outpatient R ADUM SVITLANA [facility] [id number] [facility] 2020-07-09 00:00:00 2020-07-09 00:00:00 Patient Secure Msg Doctor Unassigned, [facility] 1.2.840.114 350.1.13.10 4.2.7.2.[id number] [facility] 2020-07-08 11:38:19 2020-07-08 12:19:46 Routine Visit AdNatacha reyesian Sofia [facility] 1.2.840.114 350.1.13.10 4.2.7.2.[id number] [facility] 2020-07-08 11:30:00 2020-07-08 11:30:00 Outpatient R ADUM [facility] [id number] [facility] 2020-07-08 00:00:00 2020-07-08 00:00:00 Orders Only Doctor Unassigned, [facility] 1.2.840.114 350.1.13.10 4.2.7.2.[id number] [facility] 2020-06-27 02:17:00 2020-06-27 02:17:00 Outpatient SCHAUBROECK _L [facility] [id number] [facility] 2020-06-27 02:17:00 2020-06-27 02:17:00 Outpatient SCHAUBROECK _L [facility] [id number] [facility] 2020-06-20 16:30:00 2020-06-20 16:30:00 Outpatient R ADUM [facility] [id number] [facility] 2020-06-20 11:30:00 2020-06-20 11:30:00 Outpatient R ADUM [facility] [id number] [facility] 2020-06-20 09:31:54 2020-06-20 09:45:46 Telemedici ne Visit AdSvitlana reyes [facility] 1.2.840.114 350.1.13.10 4.2.7.2.[id number] [facility] 2020-06-17 10:05:47 2020-06-17 10:35:47 Associate Account Manager Visit Ultrasound, Cristine Mccoy [facility] BONDING EQUIPMENT OPERATOR [facility] 1.20.114 350.1.13.10 4.2.7.2.[id number] [facility] 2020-06-17 10:00:00 2020-06-17 10:00:00 Outpatient P [facility] [id number] [facility] 2020-06-11 11:14:00 2020-06-11 16:35:00 Hospital Encounter Hendrickson, Sammie Cam Adum, Svitlana [facility] 1.20.114 350.1.13.10 4.2.7.2.[id number] [facility] 2020-06-11 11:11:00 2020-06-11 11:11:00 Outpatient P [facility] [id number] [facility] 2020-06-11 00:00:00 2020-06-11 00:00:00 Telephone AdumSvitlana [facility] 1.2840.114 350.1.13.10 4.2.7.2.[id number] [facility] 2020-06-11 00:00:00 2020-06-11 00:00:00 Orders Only Doctor Unassigned, [facility] 1.2.840.114 350.1.13.10 4.2.7.2.[id number] [facility] 2020-06-04 10:24:04 2020-06-04 10:24:04 Routine Visit AdSvitlana reyes [facility] 1.0.114 350.1.13.10 4.2.7.2.[id number] [facility] 2020-06-04 09:15:00 2020-06-04 09:15:00 Outpatient R [facility] [id number] [facility] 2020-06-03 16:00:00 2020-06-03 16:00:00 Outpatient R ADSVITLANA REYES [facility] [id number] [facility] 2020-05-30 03:16:00 2020-05-30 10:10:00 Hospital Encounter John Edward [facility] 1.114 350.1.13.10 4.2.7.2.[id number] [facility] 2020-05-30 00:00:00 2020-05-30 00:00:00 Orders Only Doctor Unassigned, [facility] 1..114 350.1.13.10 4.2.7.2.[id number] [facility] 2020-05-29 00:00:00 2020-05-29 00:00:00 Refill Adum, Svitlana Black [facility] 1.114 350.1.13.10 4.2.7.2.[id number] [facility] 2020-05-22 09:30:00 2020-05-22 09:30:00 Outpatient P JEYSON LOCKHART [facility] [id number] [facility] 2020-05-20 10:19:24 2020-05-20 10:34:24 Associate Account Manager Visit 2, Adc Lab Adum, Svitlana Black [facility] 1.114 350.1.13.10 4.2.7.2.[id number] [facility] 2020-05-20 09:25:34 2020-05-20 10:06:22 Routine Visit Adum, Svitlana Black [facility] 1.2840.114 350.1.13.10 4.2.7.2.[id number] [facility] 2020-05-20 09:00:00 2020-05-20 09:00:00 Outpatient R ADUM, SVITLANA [facility] [id number] [facility] 2020-05-13 00:00:00 2020-05-13 00:00:00 Case Management Adum, Svitlana Black [facility] 1.2.114 350.1.13.10 4.2.7.2.[id number] [facility] 2020-05-09 00:00:00 2020-05-09 00:00:00 Telephone Adum, Svitlana Black [facility] 1.2.114 350.1.13.10 4.2.7.2.[id number] [facility] 2020-05-09 00:00:00 2020-05-09 00:00:00 Orders Only Doctor Unassigned, [facility] 1.284.114 350.1.13.10 4.2.7.2.[id number] [facility] 2020-05-08 00:00:00 2020-05-08 00:00:00 Telephone Adum, Svitlana Black [facility] 1.2.114 350.1.13.10 4.2.7.2.[id number] [facility] 2020-04-28 00:00:00 2020-04-28 00:00:00 Telephone Adum, Svitlana Black [facility] 1.2.840.114 350.1.13.10 4.2.7.2.[id number] [facility] 2020-04-24 11:00:00 2020-04-24 11:00:00 Outpatient MADAN ALEJANDRA [facility] [id number] [facility] 2020-04-24 00:00:00 2020-04-24 00:00:00 Refill [facility] 1.2.840.114 350.1.13.10 4.2.7.2.[id number] [facility] 2020-04-24 00:00:00 2020-04-24 00:00:00 Telephone AdSvitlana reyes [facility] 1.2.840.114 350.1.13.10 4.2.7.2.[id number] [facility] 2020-04-24 00:00:00 2020-04-24 00:00:00 Telephone AdSvitlana reyes [facility] 1.2.840.114 350.1.13.10 4.2.7.2.[id number] [facility] 2020-04-23 04:43:00 2020-04-23 06:04:00 Emergency Raghu Kumar [facility] 1.2.840.114 350.1.13.10 4.2.7.2.[id number] [facility] 2020-04-23 00:00:00 2020-04-23 00:00:00 Telephone AdSvitlana reyes [facility] 1.2.840.114 350.1.13.10 4.2.7.2.[id number] [facility] 2020-04-23 00:00:00 2020-04-23 00:00:00 Refill AdSvitlana reyes [facility] 1.20.114 350.1.13.10 4.2.7.2.[id number] [facility] 2020-04-15 10:33:30 2020-04-15 11:15:46 Routine Visit AdSvitlana reyes [facility] 1.20.114 350.1.13.10 4.2.7.2.[id number] [facility] 2020-04-15 10:30:00 2020-04-15 10:30:00 Outpatient R ADSVITLANA REYES [facility] [id number] [facility] 2020-04-07 00:00:00 2020-04-07 00:00:00 Abstract Elio Emery [facility] BONDING EQUIPMENT OPERATOR [facility] 1..114 350.1.13.10 4.2.7.2.[id number] [facility] 2020-04-07 00:00:00 2020-04-07 00:00:00 Orders Only Doctor Unassigned, [place] [facility] 1.0.114 350.1.13.10 4.2.7.2.[id number] [facility] 2020-04-04 00:00:00 2020-04-04 00:00:00 Refill Adum, Svitlana Black [facility] 1.2.114 350.1.13.10 4.2.7.2.[id number] [facility] 2020-03-31 12:51:50 2020-03-31 13:40:09 Routine Visit Faculty, Chrissy Muñiz [facility] BONDING EQUIPMENT OPERATOR [facility] 1..114 350.1.13.10 4.2.7.2.[id number] [facility] 2020-03-31 13:00:00 2020-03-31 13:00:00 Outpatient R CHRISSY MCNEIL [facility] [id number] [facility] 2020-03-25 10:04:08 2020-03-25 11:04:08 Associate Account Manager Visit Ultrasound, Chrissy Jc [facility] BONDING EQUIPMENT OPERATOR [facility] 1..840.114 350.1.13.10 4.2.7.2.[id number] [facility] 2020-03-25 10:00:00 2020-03-25 10:00:00 Outpatient P [facility] [id number] [facility] 2020-03-21 00:00:00 2020-03-21 00:00:00 Case Management Adum Svitlana [facility] 1.2.840.114 350.1.13.10 4.2.7.2.[id number] [facility] 2020-03-18 08:19:24 2020-03-18 11:36:22 Telemedici ne Visit Mimi Svitlana Black [facility] 1.2.840.114 350.1.13.10 4.2.7.2.[id number] [facility] 2020-03-18 10:30:00 2020-03-18 10:30:00 Outpatient R SVITLANA LE [facility] [id number] [facility] 2020-03-18 00:00:00 2020-03-18 00:00:00 Telephone Adamy Svitlana Black [facility] 1.2.840.114 350.1.13.10 4.2.7.2.[id number] [facility] 2020-03-07 00:00:00 2020-03-07 00:00:00 Telephone Adum Svitlana Black [facility] 1.2.840.114 350.1.13.10 4.2.7.2.[id number] [facility] 2020-03-05 00:00:00 2020-03-05 00:00:00 Telephone AdumSvitlana [facility] 1.2.840.114 350.1.13.10 4.2.7.2.[id number] [facility] 2020-03-03 13:10:50 2020-03-03 13:25:50 Associate Account Manager Visit 2, Adc Lab Chrissy Mcneil [facility] 1.2.840.114 350.1.13.10 4.2.7.2.[id number] [facility] 2020-03-03 11:46:16 2020-03-03 12:44:18 Routine Visit Faculty, Cecil Mccauley Chrissy French [facility] BONDING EQUIPMENT OPERATOR [facility] 1.2.840.114 350.1.13.10 4.2.7.2.[id number] [facility] 2020-03-03 11:00:00 2020-03-03 11:00:00 Outpatient R [facility] [id number] [facility] 2020-02-28 10:45:00 2020-02-28 10:45:00 Outpatient R [facility] [id number] [facility] 2020-02-27 14:00:00 2020-02-27 23:59:00 Hospital Encounter AdumSvitlana [facility] 1.2.840.114 350.1.13.10 4.2.7.2.[id number] [facility] 2020-02-27 00:00:00 2020-02-27 00:00:00 Outpatient R SVITLANA LE [facility] [id number] [facility] 2020-02-22 00:00:00 2020-02-22 00:00:00 Case Management AdSvitlana reyes [facility] 1.2.840.114 350.1.13.10 4.2.7.2.[id number] [facility] 2020-02-20 14:41:00 2020-02-21 10:45:00 Hospital Encounter Adum, Svitlana Black [facility] 1.2.840.114 350.1.13.10 4.2.7.2.[id number] [facility] 2020-02-20 00:00:00 2020-02-20 00:00:00 Telephone Adamy, Svitlana Black [facility] 1.2.840.114 350.1.13.10 4.2.7.2.[id number] [facility] 2020-02-19 00:00:00 2020-02-19 00:00:00 Case Management AdSvitlana reyes [facility] 1.2.840.114 350.1.13.10 4.2.7.2.[id number] [facility] 2020-02-18 10:45:53 2020-02-18 12:57:23 Initial Visit AdSvitlana reyes [facility] 1.2.840.114 350.1.13.10 4.2.7.2.[id number] [facility] 2020-02-18 10:30:00 2020-02-18 10:30:00 Outpatient R [facility] [id number] [facility] 2020-02-18 10:15:00 2020-02-18 10:15:00 Outpatient R ADSVITLANA REYES [facility] [id number] [facility] 2020-02-11 16:50:16 2020-02-11 19:29:00 Emergency Jazmin Rose [facility] 1.2.840.114 350.1.13.10 4.2.7.2.[id number] [facility] 2020-02-11 13:30:00 2020-02-11 14:00:00 Telemedici ne Visit Faculty, Cristine Beth [facility] BONDING EQUIPMENT OPERATOR [facility] 1.2.840.114 350.1.13.10 4.2.7.2.[id number] [facility] 2020-02-11 13:30:00 2020-02-11 13:30:00 Outpatient R CRISTINE HAWKINS [facility] [id number] [facility] 2020-01-30 09:30:00 2020-01-30 09:30:00 Outpatient R ELIO EMERY [facility] [id number] [facility] 2020-01-22 00:00:00 2020-01-22 00:00:00 Telephone Elio Emery [facility] BONDING EQUIPMENT OPERATOR [facility] 1.2.840.114 350.1.13.10 4.2.7.2.[id number] [facility] 2020-01-22 00:00:00 2020-01-22 00:00:00 Telephone Elio Emery [facility] BONDING EQUIPMENT OPERATOR [facility] 1.2.840.114 350.1.13.10 4.2.7.2.686 [id number] 2020-01-14 09:00:00 2020-01-14 09:00:00 Outpatient R ANAID DELACRUZ [facility] [id number] [facility] 2020-01-14 07:59:08 2020-01-14 08:29:08 Telemedici ne Visit Faculty, Cecil espinosa [facility] BONDING EQUIPMENT OPERATOR [facility] 1.2.840.114 350.1.13.10 4.2.7.2.[id number] [facility] 2020-01-11 00:00:00 2020-01-11 00:00:00 Telephone Elio Emery [facility] BONDING EQUIPMENT OPERATOR [facility] 1.2.840.114 350.1.13.10 4.2.7.2.[id number] [facility] 2020-01-10 00:00:00 2020-01-10 00:00:00 Telephone Elio Emery [facility] BONDING EQUIPMENT OPERATOR [facility] 1.2.840.114 350.1.13.10 4.2.7.2.[id number] [facility] 2020-01-04 14:01:57 2020-01-04 17:30:00 Emergency Raghu Kumar [facility] 1.2.840.114 350.1.13.10 4.2.7.2.[id number] [facility] 2020-01-02 08:13:49 2020-01-02 09:15:57 Initial Visit Lakeisha Emeryshavonne [facility] BONDING EQUIPMENT OPERATOR [facility] 1.2.840.114 350.1.13.10 4.2.7.2.[id number] [facility] 2020-01-02 08:00:00 2020-01-02 08:00:00 Outpatient R RADHA EMERYRODRIGUE [facility] [id number] [facility] 2020-01-02 00:00:00 2020-01-02 00:00:00 Orders Only Doctor Unassigned, [facility] 1.2.840.114 350.1.13.10 4.2.7.2.[id number] [facility] 2020-01-01 00:00:00 2020-01-01 00:00:00 Telephone Elio Emery [facility] BONDING EQUIPMENT OPERATOR [facility] 1.2.840.114 350.1.13.10 4.2.7.2.[id number] [facility] 2019-12-29 10:37:22 2019-12-29 12:18:00 Emergency Jazmin Rose [facility] 1.2.840.114 350.1.13.10 4.2.7.2.[id number] [facility] 2019-12-29 10:30:00 2019-12-29 10:30:00 Emergency X [facility] ERT [id number] [facility] 2019-12-29 00:00:00 2019-12-29 00:00:00 Orders Only Doctor Unassigned, [facility] 1.2.840.114 350.1.13.10 4.2.7.2.[id number] [facility] 2019-11-06 07:47:52 2019-11-06 08:17:52 Telemedici ne Visit Angely Tomas Gurinder K [facility] 1.2.840.114 350.1.13.10 4.2.7.2.[id number] [facility] 2019-09-20 09:00:00 2019-09-20 09:00:00 Outpatient AUBREE CRAWLEY [facility] [id number] [facility] 2019-09-04 00:00:00 2019-09-04 00:00:00 Orders Only Doctor Unassigned, [facility] 1.2.840.114 350.1.13.10 4.2.7.2.[id number] [facility] Results Test Description Test Time Test Comments Results Result [facility] [id number] 21:33:00* Test Item Value Reference Range Interpretation Comme nts POCT U SP GRAV (test code = 3255) . 1.005-1.025 POCT PH U (test code = 3254) . 5-8 POCT U LEUK EST (test code = 3263) . Negative - N egative POCT U NIT (test code = 3262) . Negative - Negati ve POCT U PROT (test code = 3259) 1+ Negative - Negat liz POCT U GLU (test code = 3256) neg Negative - Negati ve POCT U KETONE (test code = 3258) . Negative - Neg ative POCT U UROBILI (test code = 3260) . 0.2-1 POCT U BILI (test code = 3261) . Negative - Negat liz POCT U BLD (test code = 3257) . Negative - Negati ve POCT U COLOR (test code = 3266) . POCT U APPEAR (test code = 3267) . [facility] URINALYSIS W SPECIFIC [id number] 21:33:00* Test Item Value Reference Range Interpretation Comme nts POCT U SP GRAV (test code = 3255) . 1.005-1.025 POCT PH U (test code = 3254) . 5-8 POCT U LEUK EST (test code = 3263) . Negative - N egative POCT U NIT (test code = 3262) . Negative - Negati ve POCT U PROT (test code = 3259) 1+ Negative - Negat liz POCT U GLU (test code = 3256) neg Negative - Negati ve POCT U KETONE (test code = 3258) . Negative - Neg ative POCT U UROBILI (test code = 3260) . 0.2-1 POCT U BILI (test code = 3261) . Negative - Negat liz POCT U BLD (test code = 3257) . Negative - Negati ve POCT U COLOR (test code = 3266) . POCT U APPEAR (test code = 3267) . [facility] URINALYSIS W SPECIFIC [id number] 21:33:00* Test Item Value Reference Range Interpretation Comme nts POCT U SP GRAV (test code = 3255) . 1.005-1.025 POCT PH U (test code = 3254) . 5-8 POCT U LEUK EST (test code = 3263) . Negative - N egative POCT U NIT (test code = 3262) . Negative - Negati ve POCT U PROT (test code = 3259) 1+ Negative - Negat liz POCT U GLU (test code = 3256) neg Negative - Negati ve POCT U KETONE (test code = 3258) . Negative - Neg ative POCT U UROBILI (test code = 3260) . 0.2-1 POCT U BILI (test code = 3261) . Negative - Negat liz POCT U BLD (test code = 3257) . Negative - Negati ve POCT U COLOR (test code = 3266) . POCT U APPEAR (test code = 3267) . [facility] URINALYSIS W SPECIFIC [id number] 21:33:00* Test Item Value Reference Range Interpretation Comme nts POCT U SP GRAV (test code = 3255) . 1.005-1.025 POCT PH U (test code = 3254) . 5-8 POCT U LEUK EST (test code = 3263) . Negative - N egative POCT U NIT (test code = 3262) . Negative - Negati ve POCT U PROT (test code = 3259) 1+ Negative - Negat liz POCT U GLU (test code = 3256) neg Negative - Negati ve POCT U KETONE (test code = 3258) . Negative - Neg ative POCT U UROBILI (test code = 3260) . 0.2-1 POCT U BILI (test code = 3261) . Negative - Negat liz POCT U BLD (test code = 3257) . Negative - Negati ve POCT U COLOR (test code = 3266) . POCT U APPEAR (test code = 3267) . [facility] URINALYSIS W SPECIFIC [id number] 21:33:00* Test Item Value Reference Range Interpretation Comme nts POCT U SP GRAV (test code = 3255) . 1.005-1.025 POCT PH U (test code = 3254) . 5-8 POCT U LEUK EST (test code = 3263) . Negative - N egative POCT U NIT (test code = 3262) . Negative - Negati ve POCT U PROT (test code = 3259) 1+ Negative - Negat liz POCT U GLU (test code = 3256) neg Negative - Negati ve POCT U KETONE (test code = 3258) . Negative - Neg ative POCT U UROBILI (test code = 3260) . 0.2-1 POCT U BILI (test code = 3261) . Negative - Negat liz POCT U BLD (test code = 3257) . Negative - Negati ve POCT U COLOR (test code = 3266) . POCT U APPEAR (test code = 3267) . [facility] URINALYSIS W SPECIFIC [id number] 20:07:00* Test Item Value Reference Range Interpretation Comme nts POCT U SP GRAV (test code = 3255) . 1.005-1.025 POCT PH U (test code = 3254) . 5-8 POCT U LEUK EST (test code = 3263) . Negative - N egative POCT U NIT (test code = 3262) . Negative - Negati ve POCT U PROT (test code = 3259) Trace Negative - Negat liz POCT U GLU (test code = 3256) Nml Negative - Negati ve POCT U KETONE (test code = 3258) . Negative - Neg ative POCT U UROBILI (test code = 3260) . 0.2-1 POCT U BILI (test code = 3261) . Negative - Negat liz POCT U BLD (test code = 3257) . Negative - Negati ve POCT U COLOR (test code = 3266) POCT U APPEAR (test code = 3267) [facility] URINALYSIS W SPECIFIC [id number] 20:07:00* Test Item Value Reference Range Interpretation Comme nts POCT U SP GRAV (test code = 3255) . 1.005-1.025 POCT PH U (test code = 3254) . 5-8 POCT U LEUK EST (test code = 3263) . Negative - N egative POCT U NIT (test code = 3262) . Negative - Negati ve POCT U PROT (test code = 3259) Trace Negative - Negat liz POCT U GLU (test code = 3256) Nml Negative - Negati ve POCT U KETONE (test code = 3258) . Negative - Neg ative POCT U UROBILI (test code = 3260) . 0.2-1 POCT U BILI (test code = 3261) . Negative - Negat liz POCT U BLD (test code = 3257) . Negative - Negati ve POCT U COLOR (test code = 3266) POCT U APPEAR (test code = 3267) [facility] URINALYSIS W SPECIFIC [id number] 20:07:00* Test Item Value Reference Range Interpretation Comme nts POCT U SP GRAV (test code = 3255) . 1.005-1.025 POCT PH U (test code = 3254) . 5-8 POCT U LEUK EST (test code = 3263) . Negative - N egative POCT U NIT (test code = 3262) . Negative - Negati ve POCT U PROT (test code = 3259) Trace Negative - Negat liz POCT U GLU (test code = 3256) Nml Negative - Negati ve POCT U KETONE (test code = 3258) . Negative - Neg ative POCT U UROBILI (test code = 3260) . 0.2-1 POCT U BILI (test code = 3261) . Negative - Negat liz POCT U BLD (test code = 3257) . Negative - Negati ve POCT U COLOR (test code = 3266) POCT U APPEAR (test code = 3267) [facility] URINALYSIS W SPECIFIC [id number] 20:07:00* Test Item Value Reference Range Interpretation Comme nts POCT U SP GRAV (test code = 3255) . 1.005-1.025 POCT PH U (test code = 3254) . 5-8 POCT U LEUK EST (test code = 3263) . Negative - N egative POCT U NIT (test code = 3262) . Negative - Negati ve POCT U PROT (test code = 3259) Trace Negative - Negat liz POCT U GLU (test code = 3256) Nml Negative - Negati ve POCT U KETONE (test code = 3258) . Negative - Neg ative POCT U UROBILI (test code = 3260) . 0.2-1 POCT U BILI (test code = 3261) . Negative - Negat liz POCT U BLD (test code = 3257) . Negative - Negati ve POCT U COLOR (test code = 3266) POCT U APPEAR (test code = 3267) [facility] URINALYSIS W SPECIFIC [id number] 16:40:00* Test Item Value Reference Range Interpretation Comme nts POCT U SP GRAV (test code = 3255) . 1.005-1.025 POCT PH U (test code = 3254) . 5-8 POCT U LEUK EST (test code = 3263) . Negative - N egative POCT U NIT (test code = 3262) . Negative - Negati ve POCT U PROT (test code = 3259) trace Negative - Negat liz POCT U GLU (test code = 3256) neg Negative - Negati ve POCT U KETONE (test code = 3258) . Negative - Neg ative POCT U UROBILI (test code = 3260) . 0.2-1 POCT U BILI (test code = 3261) . Negative - Negat liz POCT U BLD (test code = 3257) . Negative - Negati ve POCT U COLOR (test code = 3266) . POCT U APPEAR (test code = 3267) [facility] URINALYSIS W SPECIFIC [id number] 16:47:00* Test Item Value Reference Range Interpretation Comme nts POCT U SP GRAV (test code = 3255) . 1.005-1.025 POCT PH U (test code = 3254) . 5-8 POCT U LEUK EST (test code = 3263) . Negative - N egative POCT U NIT (test code = 3262) . Negative - Negati ve POCT U PROT (test code = 3259) trace Negative - Negat liz POCT U GLU (test code = 3256) neg Negative - Negati ve POCT U KETONE (test code = 3258) . Negative - Neg ative POCT U UROBILI (test code = 3260) . 0.2-1 POCT U BILI (test code = 3261) . Negative - Negat liz POCT U BLD (test code = 3257) . Negative - Negati ve POCT U COLOR (test code = 3266) POCT U APPEAR (test code = 3267) [facility] FIRST TRIMESTER LESS THAN 14 [id number] 02:02:02Exam: Less than 14 Weeks Ultrasound, 08/24/2023 6:15 PM. Ordering Physician: SAMMIE HENDRICKSON.History: , vaginal bleeding . Comparison: None. Technique: Early (less than 14 weeks) obstetric ultrasound was obtainedtransabdominally. Technical Quality: Adequate. Findings: Uterus measures 12.6 x 9.7 x 9.8 cm in size. There is a single intrauterine gestation. pole crown-rump lengthmeasures 6.7 cm consistent with estimated gestational age of 13 weeks 0days. ? heart activity is seen. ? heart rate is 169 beats/min. biometric measurements were obtained:Biparietal Diameter 1.97 cm corresponds to estimated gestational age of 13weeks 1 day. ?Head Circumference 8.11 cm corresponds to estimated gestational age of 13weeks 4 days. ?Abdominal Circumference 6.17 cm corresponds to estimated gestational age of13 weeks 0 days. ?Femur Length 1.18 cm corresponds to estimated gestational age of 13 weeks 4days. ? Early placenta is identified at the fundal ?and posterior aspect of theuterus. Mean sac diameter of 6.01 cm corresponds to estimated gestationalage of 13 weeks 2days. Contour of the gestational sac is normal. There isno evidence of subchorionic hemorrhage. Estimated gestational age based on sonographic criteria is 13 weeks 1 day. Right ovary measures 3.0 x 2.0 x 2.0 cm in size. ?Left ovary is notvisualized. There is no [facility] fluid[facility] 2023-08-16 16:12:00* Test Item Value Reference Range Interpretation Comme nts POCT U SP GRAV (test code = 3255) . 1.005-1.025 POCT PH U (test code = 3254) . 5-8 POCT U LEUK EST (test code = 3263) . Negative - N egative POCT U NIT (test code = 3262) . Negative - Negati ve POCT U PROT (test code = 3259) trace Negative - Negat liz POCT U GLU (test code = 3256) neg Negative - Negati ve POCT U KETONE (test code = 3258) . Negative - Neg ative POCT U UROBILI (test code = 3260) . 0.2-1 POCT U BILI (test code = 3261) . Negative - Negat liz POCT U BLD (test code = 3257) . Negative - Negati ve POCT U COLOR (test code = 3266) . POCT U APPEAR (test code = 3267) . [facility] URINALYSIS W SPECIFIC [id number] 16:12:00* Test Item Value Reference Range Interpretation Comme nts POCT U SP GRAV (test code = 3255) . 1.005-1.025 POCT PH U (test code = 3254) . 5-8 POCT U LEUK EST (test code = 3263) . Negative - N egative POCT U NIT (test code = 3262) . Negative - Negati ve POCT U PROT (test code = 3259) trace Negative - Negat liz POCT U GLU (test code = 3256) neg Negative - Negati ve POCT U KETONE (test code = 3258) . Negative - Neg ative POCT U UROBILI (test code = 3260) . 0.2-1 POCT U BILI (test code = 3261) . Negative - Negat liz POCT U BLD (test code = 3257) . Negative - Negati ve POCT U COLOR (test code = 3266) . POCT U APPEAR (test code = 3267) . [facility] URINALYSIS W SPECIFIC [id number] 16:12:00* Test Item Value Reference Range Interpretation Comme nts POCT U SP GRAV (test code = 3255) . 1.005-1.025 POCT PH U (test code = 3254) . 5-8 POCT U LEUK EST (test code = 3263) . Negative - N egative POCT U NIT (test code = 3262) . Negative - Negati ve POCT U PROT (test code = 3259) trace Negative - Negat liz POCT U GLU (test code = 3256) neg Negative - Negati ve POCT U KETONE (test code = 3258) . Negative - Neg ative POCT U UROBILI (test code = 3260) . 0.2-1 POCT U BILI (test code = 3261) . Negative - Negat liz POCT U BLD (test code = 3257) . Negative - Negati ve POCT U COLOR (test code = 3266) . POCT U APPEAR (test code = 3267) . [facility] URINALYSIS W SPECIFIC [id number] 16:12:00* Test Item Value Reference Range Interpretation Comme nts POCT U SP GRAV (test code = 3255) . 1.005-1.025 POCT PH U (test code = 3254) . 5-8 POCT U LEUK EST (test code = 3263) . Negative - N egative POCT U NIT (test code = 3262) . Negative - Negati ve POCT U PROT (test code = 3259) trace Negative - Negat liz POCT U GLU (test code = 3256) neg Negative - Negati ve POCT U KETONE (test code = 3258) . Negative - Neg ative POCT U UROBILI (test code = 3260) . 0.2-1 POCT U BILI (test code = 3261) . Negative - Negat liz POCT U BLD (test code = 3257) . Negative - Negati ve POCT U COLOR (test code = 3266) . POCT U APPEAR (test code = 3267) . [facility] URINALYSIS W SPECIFIC [id number] 16:12:00* Test Item Value Reference Range Interpretation Comme nts POCT U SP GRAV (test code = 3255) . 1.005-1.025 POCT PH U (test code = 3254) . 5-8 POCT U LEUK EST (test code = 3263) . Negative - N egative POCT U NIT (test code = 3262) . Negative - Negati ve POCT U PROT (test code = 3259) trace Negative - Negat liz POCT U GLU (test code = 3256) neg Negative - Negati ve POCT U KETONE (test code = 3258) . Negative - Neg ative POCT U UROBILI (test code = 3260) . 0.2-1 POCT U BILI (test code = 3261) . Negative - Negat liz POCT U BLD (test code = 3257) . Negative - Negati ve POCT U COLOR (test code = 3266) . POCT U APPEAR (test code = 3267) . [facility] URINALYSIS W SPECIFIC [id number] 16:12:00* Test Item Value Reference Range Interpretation Comme nts POCT U SP GRAV (test code = 3255) . 1.005-1.025 POCT PH U (test code = 3254) . 5-8 POCT U LEUK EST (test code = 3263) . Negative - N egative POCT U NIT (test code = 3262) . Negative - Negati ve POCT U PROT (test code = 3259) trace Negative - Negat liz POCT U GLU (test code = 3256) neg Negative - Negati ve POCT U KETONE (test code = 3258) . Negative - Neg ative POCT U UROBILI (test code = 3260) . 0.2-1 POCT U BILI (test code = 3261) . Negative - Negat liz POCT U BLD (test code = 3257) . Negative - Negati ve POCT U COLOR (test code = 3266) . POCT U APPEAR (test code = 3267) . [facility] URINALYSIS W SPECIFIC [id number] 16:12:00* Test Item Value Reference Range Interpretation Comme nts POCT U SP GRAV (test code = 3255) . 1.005-1.025 POCT PH U (test code = 3254) . 5-8 POCT U LEUK EST (test code = 3263) . Negative - N egative POCT U NIT (test code = 3262) . Negative - Negati ve POCT U PROT (test code = 3259) trace Negative - Negat liz POCT U GLU (test code = 3256) neg Negative - Negati ve POCT U KETONE (test code = 3258) . Negative - Neg ative POCT U UROBILI (test code = 3260) . 0.2-1 POCT U BILI (test code = 3261) . Negative - Negat liz POCT U BLD (test code = 3257) . Negative - Negati ve POCT U COLOR (test code = 3266) . POCT U APPEAR (test code = 3267) . [facility] [id number] 09:41:25* Test Item Value Reference Range Interpretation Comme nts WBC (test code = 6690-2) 18.85 See_Comment H [Automated message] The system which generated this result transmitted reference range: 4.30 - 11.10 10*3/?L. The reference range was not used to interpret this result as normal/abnormal. RBC (test code = 789-8) 4.42 See_Comment [Automated message] The system which generated this result transmitted reference range: 3.93 - 5.25 10*6/?L. The reference range was not used to interpret this result as normal/abnormal. HGB (test code = 718-7) 11.7 g/dL 11.6-15.0 HCT (test code = 4544-3) 36.3 % 35.7-45.2 MCV (test code = 787-2) 82.1 fL 80.6-95.5 MCH (test code = 785-6) 26.5 pg 25.9-32.8 MCHC (test code = 786-4) 32.2 g/dL 31.6-35.1 RDW-SD (test code = 62827-5) 45.7 fL 39.0-49.9 RDW-CV (test code = 788-0) 15.3 % 12.0-15.5 PLT (test code = 777-3) 339 See_Comment [Automated message] The system which generated this result transmitted reference range: 166 - 358 10*3/?L. The reference range was not used to interpret this result as normal/abnormal. MPV (test code = 98551-6) 11.5 fL 9.5-12.9 NRBC/100 WBC (test code = [id number]) 0.0 See_Comment [Automated message] The system which generated this result transmitted reference range: 0.0 - 10.0 /100 WBCs. The reference range was not used to interpret this result as normal/abnormal. NRBC x10^3 (test code = [id number]) See_Comment [Automated message] The system which generated this result transmitted reference range: 10*3/?L. The reference range was not used to interpret this result as normal/abnormal. GRAN MAT (NEUT) % (test code = 770-8) 87.7 % IMM GRAN % (test code = 1422905645) 0.40 % LYMPH % (test code = 736-9) 7.4 % MONO % (test code = 5905-5) 3.6 % EOS % (test code = 713-8) 0.6 % BASO % (test code = 706-2) 0.3 % GRAN MAT x10^3(ANC) (test code = [id number]) 16.53 10*3/uL 1.88-7.09 H IMM GRAN x10^3 (test code = 3876114482) 0.08 10*3/uL 0.00-0.06 H LYMPH x10^3 (test code = 731-0) 1.40 10*3/uL 1.32-3.29 MONO x10^3 (test code = 742-7) 0.68 10*3/uL 0.33-0.92 EOS x10^3 (test code = 711-2) 0.11 10*3/uL 0.03-0.39 BASO x10^3 (test code = 704-7) 0.05 10*3/uL 0.01-0.07 Lab Interpretation (test code = 57081-9) Abnormal [facility]. Metabolic Panel (97757)2023-08-05 09:39:44* Test Item Value Reference Range Interpretation Comme nts NA (test code = 7625647746) 136 mmol/L 135-145 K (test code = 4250660404) 4.0 mmol/L 3.5-5.0 CL (test code = 4313553512) 105 mmol/L 98-108 CO2 TOTAL (test code = 1108258589) 22 mmol/L 23-31 L AGAP (test code = 3807207539) 9 2-16 BUN (test code = 4774888035) 9 mg/dL 7-23 GLUCOSE (test code = 2480102644) 109 mg/dL 70-110 CREATININE (test code = 0996663971) 0.51 mg/dL 0.50-1.04 TOTAL BILI (test code = 5846351894) 0.9 mg/dL 0.1-1.1 CALCIUM (test code = 5631896304) 9.6 mg/dL 8.6-10.6 T PROTEIN (test code = 3325482476) 7.6 g/dL 6.3-8.2 ALBUMIN (test code = 9391447397) 4.4 g/dL 3.5-5.0 ALK PHOS (test code = 8237085867) 44 U/L 34-122 ALTv (test code = 1742-6) 18 U/L 5-35 AST(SGOT) (test code = 2865362746) 24 U/L 13-40 eGFR (test code = 10069-4) 135.5 mL/min/1.73m2 CKD-EPI eGFR (2020). Assuming creatinine has been stable day-to-day for at least three months, the eGFR indicates Category G1 (>= 90 mL/min/1.73 m2) Lab Interpretation (test code = 81749-2) [facility] Test Item Value Reference Range Interpretation Comme nts LIPASE (test code = 0270062323) 55 U/L 0-220 Lab Interpretation (test cod e = 06148-0) [facility] [id number] 21:49:00* Test Item Value Reference Range Interpretation Comme nts POCT U SP GRAV (test code = 3255) . 1.005-1.025 POCT PH U (test code = 3254) 5 mg/dl 5-8 POCT U LEUK EST (test code = 3263) trace Negative - Negative POCT U NIT (test code = 3262) neg Negative - Negati ve POCT U PROT (test code = 3259) 1+ Negative - Negat liz POCT U GLU (test code = 3256) neg Negative - Negati ve POCT U KETONE (test code = 3258) 2+ Negative - Neg ative POCT U UROBILI (test code = 3260) . 0.2-1 POCT U BILI (test code = 3261) . Negative - Negat liz POCT U BLD (test code = 3257) trace Negative - Negati ve POCT U COLOR (test code = 3266) POCT U APPEAR (test code = 3267) [facility] URINALYSIS W SPECIFIC [id number] 21:49:00* Test Item Value Reference Range Interpretation Comme nts POCT U SP GRAV (test code = 3255) . 1.005-1.025 POCT PH U (test code = 3254) 5 mg/dl 5-8 POCT U LEUK EST (test code = 3263) trace Negative - Negative POCT U NIT (test code = 3262) neg Negative - Negati ve POCT U PROT (test code = 3259) 1+ Negative - Negat liz POCT U GLU (test code = 3256) neg Negative - Negati ve POCT U KETONE (test code = 3258) 2+ Negative - Neg ative POCT U UROBILI (test code = 3260) . 0.2-1 POCT U BILI (test code = 3261) . Negative - Negat liz POCT U BLD (test code = 3257) trace Negative - Negati ve POCT U COLOR (test code = 3266) POCT U APPEAR (test code = 3267) [facility] [id number] 18:53:00* Test Item Value Reference Range Interpretation Comme nts POCT PREG (test code = 1605) Positive On board controls acceptable with C Line (test code = 3574) Yes POCT PREG LOT # (test code = 3575) POCT PREG TEST DATE ( test code = 3576) [facility] URINALYSIS W/O SPECIFIC [id number] 18:53:00* Test Item Value Reference Range Interpretation Comme nts POCT PH U (test code = 3254) 5 mg/dl 5-8 POCT U LEUK EST (test code = 3263) Trace Negative - Negative POCT U NIT (test code = 3262) Neg Negative - Negati ve POCT U PROT (test code = 3259) 1+ Negative - Negat liz POCT U GLU (test code = 3256) Nml Negative - Negati ve POCT U KETONE (test code = 3258) 2+ Negative - Neg ative POCT U BLD (test code = 3257) Trace Negative - Negati ve [facility] [id number] 18:53:00* Test Item Value Reference Range Interpretation Comme nts POCT PREG (test code = 1605) Positive On board controls acceptable with C Line (test code = 3574) Yes POCT PREG LOT # (test code = 3575) POCT PREG TEST DATE ( test code = 357) [facility] URINALYSIS W/O SPECIFIC [id number] 18:53:00* Test Item Value Reference Range Interpretation Comme nts POCT PH U (test code = 3254) 5 mg/dl 5-8 POCT U LEUK EST (test code = 3263) Trace Negative - Negative POCT U NIT (test code = 3262) Neg Negative - Negati ve POCT U PROT (test code = 3259) 1+ Negative - Negat liz POCT U GLU (test code = 3256) Nml Negative - Negati ve POCT U KETONE (test code = 3258) 2+ Negative - Neg ative POCT U BLD (test code = 3257) Trace Negative - Negati ve [facility] [id number] 18:53:00* Test Item Value Reference Range Interpretation Comme nts POCT PREG (test code = 1605) Positive On board controls acceptable with C Line (test code = 3574) Yes POCT PREG LOT # (test code = 3575) POCT PREG TEST DATE ( test code = 3576) [facility] URINALYSIS W/O SPECIFIC [id number] 18:53:00* Test Item Value Reference Range Interpretation Comme nts POCT PH U (test code = 3254) 5 mg/dl 5-8 POCT U LEUK EST (test code = 3263) Trace Negative - Negative POCT U NIT (test code = 3262) Neg Negative - Negati ve POCT U PROT (test code = 3259) 1+ Negative - Negat liz POCT U GLU (test code = 3256) Nml Negative - Negati ve POCT U KETONE (test code = 3258) 2+ Negative - Neg ative POCT U BLD (test code = 3257) Trace Negative - Negati ve [facility] URINALYSIS W SPECIFIC [id number] 01:25:00* Test Item Value Reference Range Interpretation Comme nts POCT U SP GRAV (test code = 3255) 1.025 mg/dl 1.005-1.025 POCT PH U (test code = 3254) 5 mg/dl 5-8 POCT U LEUK EST (test code = 3263) 1+ Negative - Negative POCT U NIT (test code = 3262) negaitve Negative - Negative POCT U PROT (test code = 3259) trace Negative - Negative POCT U GLU (test code = 3256) negative Negative - Negative POCT U KETONE (test code = 3258) large Negative - Negative POCT U UROBILI (test code = 3260) normal 0.2-1 POCT U BILI (test code = 3261) negative Negative - Negative POCT U BLD (test code = 3257) trace Negative - Negative POCT U COLOR (test code = 3266) dark yellow POCT U APPEAR (test code = 3267) cloudy REG (test code = REG) accurate developme nt and interpretation of all internal controls Lab Interpretation (test code = 45808-6) Abnormal [facility] [id number] 01:23:00* Test Item Value Reference Range Interpretation Comme nts POCT PREG (test code = 1605) Negative On board controls acceptable with C Line (test code = 3574) Yes POCT PREG LOT # (test code = 3575) [id number] POCT PREG TEST DATE ( test code = 3576) [id number] Lab Interpretation (test cod e = 31041-9) Abnormal [facility] [id number] 15:36:00* Test Item Value Reference Range Interpretation Comme nts POCT PREG (test code = 1605) Negative On board controls acceptable with C Line (test code = 3574) Yes POCT PREG LOT # (test code = 3575) POCT PREG TEST DATE ( test code = 3576) [facility]-CoV-2 (COVID-19) Ag [Presence] in Respiratory specimen by Rapid ukdkkitzqex0694-51-55 15:54:00* Test Item Value Reference Range Interpretation Comme nts SARS CoV 2 (test code = SARS CoV 2) negative [facility], cyecfr8205-29-79 15:53:00 * Test Item Value Reference Range Interpretation Comme nts Strep (test code = Strep) positive [facility] IhxreluAduutfismr3921-92-73 12:37:00* Test Item Value Reference Range Interpretation [...] Source: Urine Clean CatchCulture, Strep Group A Fngf5047-53-70 11:02:00* Test Item Value Reference Range Interpretation Comme nts Culture, Strep Group A Rflx (test code = STRPACULT) STRPCULT Culture, Strep Group A Rflx (test code = STRPACULT1) N Strep Group A Hkvfii2903-06-75 00:11:00* Test Item Value Reference Range Interpretation Comme nts Strep Group A Screen (test c ode = STRP) STRPANEG1 Strep Group A Screen (test c ode = STRP1) N Strep Group A Screen (test c ode = STRP1) STRPTH History and Physical Notes Date/Time Note Provider Source 2023-08-24 19:04:49 5051-78-61Z23:04:49F ormatting of this note is different from the original.TRIAGE HISTORY & PHYSICALIDENTIFYING DATAAlonolvia Chawla is 23 year old, Black or , /White, 13w1d, female with PARUL 02/28/2024, by Last Menstrual Period.: 2000MRN: [id number] Care Physician: Marco Antonio Donnelly [facility] bleedingHISTORY OF PRESENT ILLNESSAlonolvia Chawla is a 23 year old female @ 13w1d transferred from [facility] for vaginal bleeding. Vaginal bleeding started this morning. Denies abdominal cramping. Has LLQ soreness after ultrasound done and also with coughing. States that she has coughing for 2 wks. Denies sick contacts + nasal congestion and rhinorrhea and coughing up phlegm.PAST OBSTETRIC HISTORYOB HistoryGravida Para Term AB Living3 1 1 1 1SAB IAB Ectopic Multiple Live Births0 1# Outcome Date GA Lbr Sohan/2nd Weight Sex Delivery Anes PTL Lv3 Current2 Term 07/23/20 37w1d 2710 g M NORMAL SPONT EPI LIV1 AB 2017PAST MEDICAL HISTORYProblem list:Patient Active Problem ListDiagnosis Date NotedVaginal bleeding affecting early 4Chlamydia infection during 07/15/2023Multiparity 07/13/2023History of 07/13/2023Supervision of high-risk 07/13/2023Nausea and vomiting in 07/13/2023ucket-handle tear of medial meniscus of right knee as current injury, subsequent encounter 05/20/2020Superior mesenteric artery syndrome 07/29/2019Asthma 07/16/2019Seasonal allergies 07/16/2019Operations:Past Surgical History:Procedure Laterality DateARTHROTOMY,OPEN REPAIR MENISCUSrt knee at age 16Past Medical History:Diagnosis DateAnemiaongoing, not on medicationAsthmaas a child, not on medicationChlamydia infection during 07/15/2023SMAS (superior mesenteric artery syndrome) 08/2019CURRENT HEALTH STATUSMedications:No current facility-administered medications for this encounter.Allergies and drug reactions: Patient has no known allergies.HOME MEDICATIONSMedications Prior to AdmissionMedication Sig Dispense Refill Last DoseSERTraline 25 mg tablet Take 1 tablet by mouth in the morning. 90 tablet 1proMETHazine 25 mg tablet Take 1 tablet by mouth every 6 (six) hours as needed for Nausea and Vomiting (N/V). 30 tablet 0pantoprazole (PROTONIX) 40 mg EC tablet Take 1 tablet by mouth in the morning. 28 tablet 0proMETHazine 25 mg tablet Take 1 tablet by mouth every 6 (six) hours as needed for Nausea and Vomiting (N/V). 12 tablet 0proMETHazine 25 mg tablet Take 1 tablet by mouth every 4 (four) hours as needed for Nausea and Vomiting (N/V). 30 tablet 0PNV 687-xpnp-EL-qn-3d-rkq-epa (VITAFOL GUMMIES) 3.33 mg iron- 0.33 mg Chew Take 3 tablets by mouth in the morning. 90 tablet 7proMETHazine 25 mg tablet Take 1 tablet by mouth every 6 (six) hours as needed for Nausea and Vomiting (N/V). 30 tablet 0SOCIAL HISTORYTobacco History:Social HistoryTobacco UseSmoking Status NeverSmokeless Tobacco NeverDrug History:Social HistorySubstance and Sexual ActivityDrug Use Not CurrentlyAlcohol History:Social HistorySubstance and Sexual ActivityAlcohol Use NeverFAMILY HISTORYFamily HistoryProblem Relation Age of OnsetHypertension MotherNo Significant Medical Problems FatherNo Significant Medical Problems SisterNo Significant Medical Problems BrotherHypertension Maternal GrandmotherNo Significant Medical Problems Paternal GrandmotherNo Significant Medical Problems Paternal GrandfatherArthritis NoFHxAsthma NoFHxBirth defects NoFHxBreast Cancer NoFHxColon Cancer NoFHxOvarian Cancer NoFHxUterine Cancer NoFHxCancer NoFHxDepression NoFHxDiabetes NoFHxGenetic NoFHxHeart NoFHxHigh cholesterol NoFHxMental retardation NoFHxNeurological NoFHxOsteoporosis NoFHxPsychiatry NoFHxOther - see comments NoFHxREVIEW OF SYSTEMSGeneral: negativeConstitutional: negativeEyes: negativeENT/Mouth: negativeCardiovascular: negativeRespiratory: see HPIGastrointestinal: see HPIGenitourinary: see HPIMusculoskeletal: negativeSkin/breast: negativeNeurological: negativePsychiatric: negativeEndocrine: negativeHemat/Lymph: negativeAllergic/Immuno:noneVITAL SIGNSBP: (120)/(76)Temp: [36.9 ?C (98.5 ?F)]Temp source: Oral (08/24 1714)Pulse: [87]Resp: [18]SpO2: [100 %]Height: --Weight: --BMI (calculated): --PHYSICAL EXAMINATIONSGen: alert and oriented, well appearing, no distressCV: RRR, normal S1/S2, no m/r/gResp: normal work of breathing, lungs CTABAbd: soft, NTTPExt: no calf tenderness or edemaGU: cervix visually closed. Small amount of dark blood noted in the vaginal vault ( < 5 cc) and no active bleeding noted. Lemon sized amount of blood noted on the pad since arrival to L&D.REVIEW OF LABORATORY, PATHOLOGY, AND RADIOLOGY DATALab results:Type & Screen HIV Hep B Syphilis ChlamydiaABO & RHDate Value Ref Range Iyvjec3507/13/2023 B POSITIVE FinalNo results found for: "HIVMULTIPLEX" No components found for: "HBSHBSAG" Syphilis IgG/IgMDate Value Ref Range Buqnnp8707/13/2023 Non-reactive Non-reactive FinalC. trachomatis Nucleic AcidDate Value Ref Range Zonagv1508/16/2023 Negative Negative FinalIATDate Value Ref Range Atxpxn4007/13/2023 Negative FinalVaricella Rubella Glucose Group B Strep CBCVZV IgG antibodyDate Value Ref Range Loblwx3607/13/2023 Positive Negative FinalRubella screen IgGDate Value Ref Range Nxqeah5707/13/2023 Positive Negative FinalGLUC 1 HRDate Value Ref Range Lelgpm2905/20/2020 83 (L) 120 - 170 mg/dL FinalNo results found for: "CGBS" HGBDate Value Ref Range Imcpoj0208/05/2023 11.7 11.6 - 15.0 g/dL FinalHCTDate Value Ref Range Arrcob3808/05/2023 36.3 35.7 - 45.2 % FinalPLTDate Value Ref Range Jjupdl8908/05/2023 339 166 - 358 10*3/?L FinalActive Hospital ProblemsDiagnosis Date NotedVaginal bleeding affecting early 4Resolved Hospital ProblemsNo resolved problems to display.Present on Admission:NonePlacenta Accreta ScreeningPrior ? : NoPrior Uterine Surgery?: NoPlacenta low lying/previa in current ? : NoScreening outcome:A positive screening outcome indicates a history of prior delivery or prior uterine surgery, AND the presence of either a placenta low lying/previa or ultrasound suspicion of PASD in the current .Negative screening.ASSESSMENT AND PLANAlonna Ralph is a 23 year old at 13w1d by LMP who presents with vaginal bleeding.Vaginal bleeding- Rh positive- no active bleeding currently with closed cervix. Live single IUP noted on ultrasound, pending report.- discussed threatened miscarriages and strong ER precautions given. Discussed continue observation for a couple more hours. Patient wants to be discharged and will come back if needed. Stable for discharge at this time.URI symptoms- COVID/flu [facility] [place] [address]-7Biiwdcu and physical ccxvNA5846-69-48W12:37:07History and physical noteTXT1.2.840.023881.1.13.104.2.7.2.33472 9|[id number] for patient tvsv99103-2Gfcycbt and physical noteLNNARRATIVEFormatted C-CDA narrative text[address] Tp[id number] QZUIGSDLDIURJRZN8668-66-45P04:37:071.2.840 .323236.1.72.3.15|1.2.840.140947.1.13.104. 2.7.2.727879_[id number] [facility] Notes Date/Time Note Provider Source 2023-11-25 13:31:57 1050-19-86J94:31:57 Patient informed of results and new orders, verbalized understanding. 18321-4Aqkbqmuzz encounter NhqrEL6162-70-90C61:34:41Telephon e encounter NoteTXT1.2.840.677439.1.13.104.2. 7.2.785857|[id number] for patient fjgi93460-7OkiuZEBGGOKRRUBYpsjvli ed C-CDA narrative [id number] Avtar [address]vest[place] 011ICAOSFOYDXDJMDUGPUEAGE4075-33- 19T13:34:411.2.840.066131.1.72.3. 15|1.2.840.978292.1.13.104.2.7.2. 727879_[id number] Joyce Nova [facility] 2023-11-25 08:36:15 6725-31-58K04:36:15 2nd attempt to call patient, no answer, no vm setup. 46391-4Vjrzapcij encounter DpazMB0229-89-04C84:36:36Telephon e encounter NoteTXT1.2.840.653281.1.13.104.2. 7.2.749634|[id number] for patient zpnv18399-8MuglTIAFRQFFYOMSkypkmn ed C-CDA narrative zanc863451630Abfagpkx Garcia [address]veston[place]TX[place] 102WNUZKTYDYEDUDJMPRLBTEP4794-87- 19T08:36:361.2.840.007028.1.72.3. 15|1.2.840.348376.1.13.104.2.7.2. 727879_[id number] Joyce Nova [facility] 2023-11-24 14:58:47 2156-47-16P65:58:47 Attempted to call patient, no answer, no vm setup. 19922-5Ydzooytkq encounter RrtnOE0000-68-12Y74:59:00Telephon e encounter NoteTXT1.2.840.545864.1.13.104.2. 7.2.985263|[id number] for patient dodj55784-8GegwOPLWKPQNNODBbyathp ed C-CDA narrative [id number] Avtar [address]TXTX[address] 138BPDEMUPRIGOJIBPLCPNOQD0282-72- 18T14:59:001.2.840.746733.1.72.3. 15|1.2.840.570815.1.13.104.2.7.2. 727879_[id number] Joyce Nova [facility] 2023-11-24 14:40:42 8566-66-83J50:40:42 Please notify the patient her labs are indicative of BV, meds have been sent to her pharmacy on file. Please have her complete the entire course as prescribed.Please notify the patient that yeast was identified on her pap. Meds have been sent to her pharmacy on file, please advise the patient to complete the meds as prescribed, and practice good perineal hygiene.Please advise patient to complete BV meds NESTOR Green 11/24/2023 2:40 PM 15680-0Ahgbythdr encounter TxmlDS6455-22-15B94:50:36Telephon e encounter NoteTXT1.2.840.610400.1.13.104.2. 7.2.502376|[id number] for patient pjme13146-1YpcvRBHKIMLDQSIYvjabxu ed C-CDA narrative [address]TX[place] 891WDHTDQABBXWTDAVKBYOJTI0262-64- 18T14:50:361.2.840.449902.1.72.3. 15|1.2.840.770882.1.13.104.2.7.2. 727879_[id number] [facility] 2023-11-22 14:51:04 2685-86-89Y12:51:04 No iphone found in ultrasound room. Spoke with patient and informed. 16546-5Xjxiichwx encounter FkdhBK9923-71-31T10:51:26Telephon e encounter NoteTXT1.2.840.356358.1.13.104.2. 7.2.833523|[id number] for patient rgly20090-6ConbCRLQGQJIMVQGgzzfvq ed C-CDA narrative [id number] Wolfe [address] 830GURDRMWNDOXQOUFWRSSMAG0043-49- 16T14:51:261.2.840.172806.1.72.3. 15|1.2.840.417117.1.13.104.2.7.2. 727879_[id number] Gi Wolfe [employer] [facility] 2023-11-22 14:29:15 2590-49-10Y89:29:15 Patient calling states that she had ultrasound this morning and believes her fianc?may have left phone in the ultrasound room. It is a black iphone 11. Please call to advise whether anything has been found. 77660-7Ojoxaksos encounter XrmiXT3749-07-31U67:30:57Telephon e encounter NoteTXT1.2.840.263663.1.13.104.2. 7.2.548338|[id number] for patient mubt87042-9XvdpKRXCKVTAPKTZrfvhgc ed C-CDA narrative [id number] L [address]TXTX[address] 947HFHMXCXYEQPZSGUTLZTAQW4692-47- 16T14:30:571.2.840.784652.1.72.3. 15|1.2.840.402304.1.13.104.2.7.2. 727879_[id number] Rosalina Black [facility] 2023-09-12 12:17:46 3701-21-74Q52:17:46 Genetics telehealth no show - did not join video call link, no answer on phone b0Mdawdqredwsixm signed by Wen Bloom at 09/12/2023 12:18 PM TBO12461-4Cyqlstxyj encounter EjbxRW2894-93-81K03:18:06Telephon e encounter NoteTXT1.2.840.537358.1.13.104.2. 7.2.430716|[id number] for patient pzih42333-2BqpxTGGVWPRNLSZQdbojaa ed C-CDA narrative [id number] [address]TXTX[address] 050WRPVXHMXQQOKRKQRTDIDWN6181-24- 05T12:18:061.2.840.744413.1.72.3. 15|1.2.840.278289.1.13.104.2.7.2. 727879_[id number] Wen Bloom [facility] 2023-09-07 09:55:29 8964-48-71L32:55:29 3rd attempt to call patient, no answer, vm full. Letter sent to patient, pt scheduled with genetics on 09/12. 14421-8Ljcdlslkh encounter BpceEW7799-26-20E37:56:45Telephon e encounter NoteTXT1.2.840.203097.1.13.104.2. 7.2.729988|[id number] for patient tihl36500-3CpgoGGMBPSOJIFNSktuvad ed C-CDA narrative qqjc250824177Plvshmea Avtar [address]TXTX[address] 655AITCWWYFPQAAKZXKXTKFQP1669-44- 31T09:56:451.2.840.900013.1.72.3. 15|1.2.840.004890.1.13.104.2.7.2. 727879_[id number] Joyce Nova [facility] 2023-09-06 10:40:30 9598-32-26K74:40:30 2nd attempt, no answer. No vm box.Brittanie Delgado RN 09/06/23 10:40 AM 71290-1Pupqnwpes encounter ZpbgEQ3242-31-36I47:40:50Telephon e encounter NoteTXT1.2.840.911555.1.13.104.2. 7.2.480219|0840065392HPEjwovjyty for patient xznx66556-4YfqoNFPLFZFUYWMRrztyvu ed C-CDA narrative [address] 084HDVZXLCGXFIAQXNCOQEQUR2941-41- 30T10:40:501.2.840.434139.1.72.3. 15|1.2.840.415234.1.13.104.2.7.2. 727879_[id number] [facility] 2023-09-05 15:55:57 2586-40-44Y44:55:57 Called pt, no answer. Vm box full.Brittanie Delgado RN 09/05/23 3:56 PM 13504-8Khbqkxzar encounter RebkFD0554-05-37D24:56:35Telephon e encounter NoteTXT1.2.840.285270.1.13.104.2. 7.2.010833|[id number] for patient tkls57048-9PeyzBRSWGCWGVVVNmkpull ed C-CDA narrative text[address]TXTX[address] 928ZKHDTCHCHWTGWQKOFECPGF6119-62- 29T15:56:351.2.840.959843.1.72.3. 15|1.2.840.756927.1.13.104.2.7.2. 727879_[id number] [facility] 2023-09-05 15:30:35 0164-73-31D25:30:35 Please have patient scheduled with genetics, orders have been placedSilent carrier for alpha thalassemiaCystic fibrosis carrierCarrier for fragile x syndromeNESTOR Handley 09/05/2023 3:32 PM 22747-3Brzkroxio encounter SswoJS1379-20-26A46:33:24Telephon e encounter NoteTXT1.2.840.879756.1.13.104.2. 7.2.484329|[id number] for patient fzya91347-1OlthPWNNEWYWLJDTxaadjx ed C-CDA narrative text[address]TXTX[address] 183DYNHRUITWCAKYTDHGQHWAU9147-51- 29T15:33:241.2.840.408246.1.72.3. 15|1.2.840.635923.1.13.104.2.7.2. 727879_[id number] [facility] 2023-08-15 08:16:28 9993-97-67E08:16:28 Images from the original note were not included. 93338-7Kwcjutfdg encounter AdewDO9733-94-55M81:17:23Telephon e encounter NoteTXT1.2.840.395557.1.13.104.2. 7.2.997941|[id number] for patient qrim95816-3ZdjdWZGEFFXBBKSSqucnqa ed C-CDA narrative text[address] TkvfVjlmntwkyVkbethndpMWDQ6427505 043XTJTURZZGOLVQZVWKWOWHG8539-21- 08T08:17:231.2.840.269011.1.72.3. 15|1.2.840.335645.1.13.104.2.7.2. 727879_[id number] [facility] 2023-08-05 04:24:05 1100-49-82E95:24:05 Pt given printed and verbal discharge instructions regarding generalized abdominal pain and first trimester pregnancyPrescriptions providedPt verbalized understanding of instructions, pt awake alert oriented, resp reg unlabored, skin w/d, color appropriate for race, moves all ext well,pt encouraged to follow up with pcpAdvised to seek medical attention for new/prolonged/worsening of symptomsNo adverse reaction to meds given in ER noted upon dischargePIV d'cd, dressing to site, catheter in tact.Awake, alert oriented, resp reg unlabored, skin w/d, pt leaving amb with steady gait, in no apparent distress 70043-2Hewbwrkvf department BpjfLJ4290-18-23I78:24:38Emergenc y department NoteTXT1.2.840.371670.1.13.104.2. 7.2.757033|[id number] for patient habb63699-0EybsQNJSOFNNIJODuwevif ed C-CDA narrative [id number] A Diaz RN[address]TXTX[address] 038QNBQDVWQNMLDBNQIZBUZJH8980-44- 29T04:24:381.2.840.846900.1.72.3. 15|1.2.840.775631.1.13.104.2.7.2. 727879_[id number] Haleigh More [facility] 2023-08-05 01:58:02 4685-97-09V30:58:02 Pt arrives ambulatory to ED reporting cramping to lower abd x 3-4 hrs. She says that it comes and goes but when it comes it hurts so much that she vomits. Mom is with her and stated that she has noticed a lot of belching. 53121-3Ubkhsdeim department Triage kzrmGT2023-72-65I18:59:47Emergen y department Triage noteTXT1.2.840.136922.1.13.104.2. 7.2.708827|[id number] for patient xkov67036-3Gdfyryota department NoteLNNARRATIVEFormatted C-CDA narrative [id number] L Williams RN[address] Brown [id number] 61[id number]- 29T01:59:471.2.840.177278.1.72.3. 15|1.2.840.905828.1.13.104.2.7.2. [id number] Yanci Sofia Milton NAVARRO [facility] 2023-03-11 16:21:59 [id number]:21:59 Spoke to PT. Advised pt to go back to ED to be evaluated for severe abd pain and blood in urine. Pt stated that they were not acting like it was urgent. Advised pt that she needs to be seen to have labs and possible imaging done. Pt verbalized understanding. ROCHELLE CORONA RN 03/11/2023 4:25 PM [id number] encounter [id number]:25:07Telephon e encounter [id number]. [id number] for patient [id number] th G Cervantes RN[address] Nv[id number] 3[id number]- 04T16:25:[id number]. 15|[id number]. [id number] Rochelle Corona RN [facility] 2023-03-11 16:08:11 [id number]:08:11 Patient is calling in stating that she is urinating straight blood and is in pain.Please advise [id number] encounter [id number]:08:59Telephon e encounter [id number]. [id number] for patient [id number] pher S [id number] 6[id number]- 04T16:08:591.2.840.323964.1.72.3. 15|[id number]. [id number] Brandtmanjit Espinosa [facility] 2023-03-11 13:20:50 [id number]:20:50 Called from pratima, no response. [id number] department PkumRI2741-56-51N74:21:02Emergen y department [id number]. [id number] for patient [id number] M Cruz RN[address] Yi[id number] 1[id number]- 04T13:21:021.2.840.394252.1.72.3. 15|[id number]. [id number] Norma Huerta RN [facility]
[2024-02-04] MEDS ORDERED: NA CHLORIDE 0.9% 500 ML ONE (00:16)
[2024-02-04 01:32] LABS: Specific Gravity 1.023 (1.005-1.030); Sqamous Epithelial <5 /HPF (None Seen); Urine Bacteria None Seen /HPF (<20); Urine Bilirubin NEGATIVE (Negative); Urine Blood Negative (Negative); Urine Clarity Clear (Clear); Urine Color Light-Yellow (Yellow); Urine Culture Reflex Order NOT NEEDED; Urine Glucose NEGATIVE (Negative); Urine Ketones NEGATIVE (Negative); Urine Microscopic Reflex YN ORDER UMIC; Urine Nitrite NEGATIVE (Negative); Urine Protein 4+ (Over) (Negative); Urine RBC None Seen /HPF (None Seen); Urine Urobilinogen 1+ (Normal); Urine WBC <5 /HPF (<5); Urine pH 8.5 (5.0-7.0)
[2024-02-04 01:43] LABS: Absolute Basophils 0.1 K/uL (0-0.5); Absolute Eosinophils 0.1 K/uL (0-0.5); Absolute Lymphocytes (CBC) 1.9 K/uL (0.7-4.9); Absolute Monocytes 0.6 K/uL (0.1-1.3); Absolute Neutrophil 6.9 K/uL (1.8-8.0); Basophils % 0.6 % (0-1.3); Hematocrit 29.3 % (36.0-45.0); Hemoglobin 9.1 g/dL (12.0-15.0); Lymphocytes % 19.7 % (15.3-44.8); MCH 21.1 pg (27.0-35.0); MCHC 31.1 g/dL (32.0-36.0); MCV 67.8 fL (80-100); Neutrophils % 72.7 % (41.7-73.7); Nucleated Red Blood Cells % 0.4 % (0-0); Platelets 270 thou/uL (152-406); RBC Red Blood Cell Count 4.32 M/uL (3.86-4.86); Red Cell Distribution Width 17.4 % (12.1-15.2)
[2024-02-04 01:55] LABS: Albumin 3.2 g/dL (3.4-5.0); Albumin/Globulin Ratio 0.7 (1.1-1.8); Anion Gap 10.3 mEq/L (5.0-15.0); Bilirubin Total 0.9 mg/dL (0.2-1.0); Globulin 4.5 g/dL (2.3-3.5); Potassium 3.3 mEq/L (3.5-5.1); Protein, Total 7.7 g/dL (6.4-8.2)
[2024-02-04 02:16] LABS: Blood Morphology Comment NOTED (NOT SEEN); Microcytosis 1+; Platelet Estimate ADEQ; Polychromasia 1+; White Blood Cell Scan OK (OK)
--- NOTE | 2024-02-04 02:58 | EDPHYS ---
Physician Documentation [facility] Name: Pieter Rosas Age: 23 yrs Sex: Female : 2000 Arrival Date: 02/03/2024 Time: 23:40 Bed 2 Private MD: STEVE Physician Markel Ho HPI: 02/03 02:51 This 23 yrs old Black Female presents to ER via Ambulatory with complaints of EST 37 ginna WKS GESTATION, Swelling of Lower Extremity. 02:51 The patient presents with swelling. The complaints affect the right leg and left leg. ginna Context: The problem was sustained at home, resulted from . Onset: The symptoms/episode began/occurred 3 day(s) ago. Modifying factors: The symptoms are alleviated by nothing. the symptoms are aggravated by nothing. Associated signs and symptoms: Pertinent positives: swelling, of the right leg and left leg. Treatment prior to arrival includes: no previous treatment. Severity of symptoms: At their worst the symptoms were mild, in the emergency department the symptoms are unchanged. The patient has experienced similar episodes in the past, multiple times. KIDNEY TRIMMER: 02/02 23:57 2, Full Term 1, Living 1, LMP 05/23/2023, Verified, EDC 02/27/2024, cm10 Gestational age from LMP: 36 weeks 5 days Historical: - Allergies: 23:56 No Known Allergies; cm10 - PMHx: 23:56 Asthma; iron deficiency; Kidney Cyst (L); SMAS; cm10 - Immunization history:: Adult Immunizations up to date. - Infectious Disease History:: Denies. - Social history:: Smoking status: Patient denies any tobacco usage or history of. - Family history:: not pertinent. ROS: 02/03 02:51 Constitutional: Negative for fever, chills, and weight loss, Eyes: Negative for injury, ginna pain, redness, and discharge, ENT: Negative for injury, pain, and discharge, Neck: Negative for injury, pain, and swelling, Cardiovascular: Negative for chest pain, palpitations, and edema, Respiratory: Negative for shortness of breath, cough, wheezing, and pleuritic chest pain, Abdomen/GI: Negative for abdominal pain, nausea, vomiting, diarrhea, and constipation, Back: Negative for injury and pain, : Negative for injury, bleeding, discharge, and swelling, Skin: Negative for injury, rash, and discoloration, Neuro: Negative for headache, weakness, numbness, tingling, and seizure, Psych: Negative for depression, anxiety, suicide ideation, homicidal ideation, and hallucinations, Allergy/Immunology: Negative for hives, rash, and allergies, Endocrine: Negative for neck swelling, polydipsia, polyuria, polyphagia, and marked weight changes, MS/extremity: Positive for swelling, tenderness, of the right leg and left leg, Exam: 02:51 Constitutional: This is a well developed, well nourished patient who is awake, alert, ginna and in no acute distress. Head/Face: Normocephalic, atraumatic. Eyes: Pupils equal round and reactive to light, extra-ocular motions intact. Lids and lashes normal. Conjunctiva and sclera are non-icteric and not injected. Cornea within normal limits. Periorbital areas with no swelling, redness, or edema. ENT: Nares patent. No nasal discharge, no septal abnormalities noted. Tympanic membranes are normal and external auditory canals are clear. Oropharynx with no redness, swelling, or masses, exudates, or evidence of obstruction, uvula midline. Mucous membranes moist. Neck: Trachea midline, no thyromegaly or masses palpated, and no cervical lymphadenopathy. Supple, full range of motion without nuchal rigidity, or vertebral point tenderness. No Meningismus. Chest/axilla: Normal chest wall appearance and motion. Nontender with no deformity. No lesions are appreciated. Cardiovascular: Regular rate and rhythm with a normal S1 and S2. No gallops, murmurs, or rubs. Normal PMI, no JVD. No pulse deficits. Respiratory: Lungs have equal breath sounds bilaterally, clear to auscultation and percussion. No rales, rhonchi or wheezes noted. No increased work of breathing, no retractions or nasal flaring. Back: No spinal tenderness. No costovertebral tenderness. Full range of motion. Skin: Warm, dry with normal turgor. Normal color with no rashes, no lesions, and no evidence of cellulitis. Neuro: Awake and alert, GCS 15, oriented to person, place, time, and situation. Cranial nerves II-XII grossly intact. Motor strength 5/5 in all extremities. Sensory grossly intact. Cerebellar exam normal. Normal gait. Psych: Awake, alert, with orientation to person, place and time. Behavior, mood, and affect are within normal limits. 02:51 Abdomen/GI: Inspection: gravid appearance, is noted, Bowel sounds: normal, Palpation: abdomen is soft and non-tender, in all quadrants, Rectal exam: the exam is deferred, na, Liver: no appreciated palpable abnormalities, Hernia: not appreciated, 02:51 Musculoskeletal/extremity: ROM: full active range of motion, full passive range of motion, Circulation is intact in all extremities. Sensation intact. Compartment Syndrome exam of affected extremity: is normal. no pain, no numbness, no tingling, no sensation deficit, no palor, no weak pulses, Weight bearing: DVT Exam: negative Homans' sign noted on exam, no appreciated bluish discoloration, no erythema, no increased warmth, pain, swelling, tenderness, Vital Signs: 02/02 23:55 BP 148 / 78; Pulse 97; Resp 18; Temp 98.4(O); Pulse Ox 97% on R/A; Weight 78.47 kg; cm10 Height 5 ft. 5 in. ; Pain 0/10; 02/03 01:20 BP 151 / 99; Pulse 73; Resp 18; Pulse Ox 100% on R/A; pc2 02:06 BP 138 / 92; Pulse 74; Resp 18; Pulse Ox 100% on R/A; pc2 03:19 BP 124 / 84; Pulse 74; Resp 18; Pulse Ox 99% on R/A; pc2 03:31 BP 121 / 76; Pulse 75; Resp 18; Pulse Ox 99% on R/A; pc2 02/02 23:55 Body Mass Index 28.79 (78.47 kg, 165.1 cm) cm10 02/02 23:55 Pain Scale: Adult cm10 MDM: 02/02 23:59 Patient medically screened. ginna 02/03 02:55 Differential diagnosis: tendonitis. Data reviewed: vital signs, nurses notes, lab test ginna result(s), radiologic studies, doppler. Consideration of Admission/Observation Escalation of care including admission/observation considered. I considered the following discharge prescriptions or medication management in the emergency department Medications were administered in the Emergency Department. See MAR. Independent interpretation of the following test(s) in the Emergency Department Radiology Department Ultrasound: My interpretation is us le and . 02/03 00:01 Order name: CBC with Diff; Complete Time: 02:44 ginna 02/03 00:01 Order name: Comprehensive Metabolic Panel ginna 02/03 00:01 Order name: Urinalysis w/ reflexes; Complete Time: 02:44 ginna 02/03 01:47 Order name: CBC Smear Scan; Complete Time: 02:44 EDMS 02/03 03:08 Order name: Magnesium EDMS 02/03 00:01 Order name: US OB Limited ginna 02/03 00:01 Order name: US Extremity Venous W Compression Ilan ginna Administered Medications: 01:27 Drug: NS 0.9% IV 500 ml IV at bolus once Route: IV; Rate: bolus; Site: right pc2 antecubital; 02:00 Follow up: Response: No adverse reaction; IV Status: Completed infusion; IV Intake: pc2 500ml 03:01 Not Given (Duplicate Order): mg PO once ginna 03:25 Drug: Labetalol PO 100 mg PO once Route: PO; pc2 03:50 Follow up: Response: No adverse reaction pc2 03:25 Drug: Magnesium Sulfate IVPB 1 grams IVPB once over 20 mins Route: IVPB; Infused Over: pc2 20 mins; Site: right antecubital; 03:45 Follow up: Response: No adverse reaction; IV Status: Completed infusion; IV Intake: pc2 100ml 03:32 Not Given (Physician Discretion): [id number] mg IV at per protocol once pc2 Disposition Summary: 02/04/24 02:57 Discharge Ordered Notes: Location: Home ginna Problem: new ginna Symptoms: have improved ginna Condition: Stable ginna Diagnosis - Edema, unspecified ginna - Essential (primary) hypertension ginna - Proteinuria, unspecified ginna - 35 weeks gestation of ginna Followup: ginna - With: Private Physician - When: 2 - 3 days - Reason: Recheck today's complaints, Continuance of care, Re-evaluation by your physician Discharge Instructions: - Discharge Summary Sheet ginna - Hypertension, Adult ginna - Preeclampsia and Eclampsia ginna - Care ginna - Proteinuria ginna - Third Trimester of ginna - Hypertension, Adult, Znid-zi-Xtyj ginna - How to Take Your Blood Pressure, Mavs-ky-Akfh ginna - Managing Your Hypertension ginna Forms: - Medication Reconciliation Form ginna - Antibiotic Education ginna - Prescription Opioid Use ginna - Patient Portal Instructions ginna - Leadership Thank You Letter ginna Prescriptions: - labetalol 100 mg Oral tablet - take 1 tablet ORAL route 2 times per day; 20 tablet; Refills: 0, Product ginna Selection Permitted Signatures: Dispatcher [employer] EDMarkel Minaya MD MD cha Martinez, Clarissa RN RN cm10 Karina hare, RN RN pc2 Corrections: (The following items were deleted from the chart) 00:02 00:02 OB Limited+US.RAD.BRZ ordered. EDMS EDMS 00:02 00:02 Extrem Venous W Compression Ilan+US.RAD.BRZ ordered. EDMS EDMS 03:06 03:04 MAGNESIUM+C.LAB.BRZ ordered. EDMS EDMS
--- NOTE | 2024-02-04 02:58 | ER ---
Nurse's Notes [facility] Name: Pieter Rosas Age: 23 yrs Sex: Female : 2000 Arrival Date: 02/03/2024 Time: 23:40 Bed 2 Private MD: Diagnosis: Edema, unspecified;Essential (primary) hypertension;Proteinuria, unspecified;35 weeks gestation of Presentation: 02/02 23:55 Chief complaint: Patient states: BILATERAL FEET SWELLING ONSET 1 MONTH AGO. Coronavirus cm10 screen: Client denies travel out of the [place] in the last 14 days. At this time, the client does not indicate any symptoms associated with coronavirus-19. Ebola Screen: Patient denies travel to an Ebola-affected area in the 21 days before illness onset. No symptoms or risks identified at this time. Initial Sepsis Screen: Does the patient meet any 2 criteria? No. Patient's initial sepsis screen is negative. Does the patient have a suspected source of infection? No. Patient's initial sepsis screen is negative. Risk Assessment: Do you want to hurt yourself or someone else? Patient reports no desire to harm self or others. Onset of symptoms was February 03, 2024. 23:55 Method Of Arrival: Ambulatory cm10 23:55 Acuity: GILDA 3 cm10 Triage Assessment: 23:56 General: Appears in no apparent distress. comfortable, Behavior is calm, cooperative. cm10 Neuro: No deficits noted. Level of Consciousness is awake, alert, obeys commands, Oriented to person, place, time, situation, Appropriate for age. Respiratory: Airway is patent Respiratory effort is even, unlabored, Respiratory pattern is regular, symmetrical. Musculoskeletal: Swelling present in right foot and left foot. NURSE TECH: 23:57 2, Full Term 1, Living 1, LMP 05/23/2023, Verified, EDC 02/27/2024, cm10 Gestational age from LMP: 36 weeks 5 days Historical: - Allergies: 23:56 No Known Allergies; cm10 - PMHx: 23:56 Asthma; iron deficiency; Kidney Cyst (L); SMAS; cm10 - Immunization history:: Adult Immunizations up to date. - Infectious Disease History:: Denies. - Social history:: Smoking status: Patient denies any tobacco usage or history of. - Family history:: not pertinent. Screenin/29 00:55 [facility] ED Fall Risk Assessment (Adult) History of falling in the last 3 months, pc2 including since admission No falls in past 3 months (0 pts) Confusion or Disorientation No (0 pts) Intoxicated or Sedated No (0 pts) Impaired Gait No (0 pts) Mobility Assist Device Used No (0 pt) Altered Elimination No (0 pt) Score/Fall Risk Level 0 - 2 = Low Risk Oriented to surroundings, Hourly rounding (assess needs \T\ fall precautionary measures) done. 00:56 Abuse screen: Denies threats or abuse. Denies injuries from another. Nutritional pc2 screening: No deficits noted. Tuberculosis screening: No symptoms or risk factors identified. Assessment: 01:05 General: Appears in no apparent distress. uncomfortable, well developed, well pc2 nourished, Behavior is cooperative, appropriate for age. Pain: Denies pain. Neuro: Level of Consciousness is awake, alert, obeys commands, Oriented to person, place, time, situation, Appropriate for age. Cardiovascular: Patient's skin is warm and dry. Cardiovascular:. Respiratory: Airway is patent Respiratory effort is even, unlabored, Respiratory pattern is regular, symmetrical. GI: Abdomen is round. : No signs and/or symptoms were reported regarding the genitourinary system. Urine is clear. EENT: No signs and/or symptoms were reported regarding the EENT system. Derm: No signs and/or symptoms reported regarding the dermatologic system. Musculoskeletal: Circulation, motion, and sensation intact. Capillary refill < 3 seconds, Range of motion: intact in all extremities, Swelling present in right foot and left foot. 01:06 Reassessment: Pt reports she's experienced intermittent swelling of compa lower pc2 extremities over the last month but for the past 2 weeks she's had constant swelling. 01:35 Reassessment: Pt ambulating to restroom at this time. NAD noted. pc2 02:40 Reassessment: Patient appears in no apparent distress at this time. Awaiting meds then pc2 discharge. 03:50 Reassessment: Patient appears in no apparent distress at this time. Patient and/or pc2 family updated on plan of care and expected duration. Pain level reassessed. Patient is alert, oriented x 3, equal unlabored respirations, skin warm/dry/pink. Vital Signs: 02/02 23:55 BP 148 / 78; Pulse 97; Resp 18; Temp 98.4(O); Pulse Ox 97% on R/A; Weight 78.47 kg; cm10 Height 5 ft. 5 in. ; Pain 0/10; 02/03 01:20 BP 151 / 99; Pulse 73; Resp 18; Pulse Ox 100% on R/A; pc2 02:06 BP 138 / 92; Pulse 74; Resp 18; Pulse Ox 100% on R/A; pc2 03:19 BP 124 / 84; Pulse 74; Resp 18; Pulse Ox 99% on R/A; pc2 03:31 BP 121 / 76; Pulse 75; Resp 18; Pulse Ox 99% on R/A; pc2 02/02 23:55 Body Mass Index 28.79 (78.47 kg, 165.1 cm) cm10 02/02 23:55 Pain Scale: Adult cm10 ED Course: 02/02 23:44 Patient arrived in ED. jj6 23:56 Triage completed. cm10 23:57 Arm band placed on Patient placed in waiting room. cm10 23:59 Markel Ho MD is Attending Physician. ginna 02/03 00:30 US at bedside. pc2 00:45 Karina hare, RN is Primary Nurse. pc2 00:56 Patient has correct armband on for positive identification. Placed in gown. Bed in low pc2 position. Call light in reach. Side rails up X2. Provided Education on: POC and time frame.. 00:58 No provider procedures requiring assistance completed. pc2 01:20 Urinalysis w/ reflexes Sent. pc2 01:21 US OB Limited In Process Unspecified. EDMS 01:21 US Extremity Venous W Compression Compa In Process Unspecified. EDMS 01:28 Comprehensive Metabolic Panel Sent. pc2 01:28 CBC with Diff Sent. pc2 04:07 IV discontinued, intact, bleeding controlled, No redness/swelling at site. Pressure pc2 dressing applied. Administered Medications: 01:27 Drug: NS 0.9% IV 500 ml IV at bolus once Route: IV; Rate: bolus; Site: right pc2 antecubital; 02:00 Follow up: Response: No adverse reaction; IV Status: Completed infusion; IV Intake: pc2 500ml 03:01 Not Given (Duplicate Order): [id number] mg PO once ginna 03:25 Drug: Labetalol PO 100 mg PO once Route: PO; pc2 03:50 Follow up: Response: No adverse reaction pc2 03:25 Drug: Magnesium Sulfate IVPB 1 grams IVPB once over 20 mins Route: IVPB; Infused Over: pc2 20 mins; Site: right antecubital; 03:45 Follow up: Response: No adverse reaction; IV Status: Completed infusion; IV Intake: pc2 100ml 03:32 Not Given (Physician Discretion): [id number] mg IV at per protocol once pc2 Medication: 00:56 VIS not applicable for this client. pc2 Intake: 02:00 IV: 500ml; Total: 500ml. pc2 03:45 IV: 100ml; Total: 600ml. pc2 Outcome: 02:57 Discharge ordered by . ginna 04:00 Discharged to home ambulatory, pc2 04:00 Condition: stable 04:00 Discharge instructions given to patient, Instructed on discharge instructions, follow up and referral plans. medication usage, Demonstrated understanding of instructions, follow-up care, medications, Prescriptions given X 1, 04:08 Patient left the ED. pc2 Signatures: Dispatcher [employer] EDCA Markel Ho MD MD cha Jeffries, Jennifer jj6 Amber Chapin, RN RN cm10 Karina hare, RN RN pc2
[2024-02-04 03:11] LABS: Magnesium 1.8 mg/dL (1.6-2.4)
[2024-02-04] MEDS ORDERED: MAGNESIUM SULFATE 1 gm IVPB 1 GM/100 ML BAG IV ONE (03:22)
[2024-02-04] MEDS ORDERED: LABETALOL HCL 100 MG TAB ONE (03:22)
[2024-02-04 04:23] VITALS: TEMP 98.4
[2024-02-04 04:40] VITALS: BP 121/76; O2SAT 99
--- NOTE | 2024-02-05 12:46 | RAD REPORT ---
EXAM DESCRIPTION: US - Extrem Venous W Compress Ilan - 02/04/2024 2:22 am CLINICAL HISTORY: The patient is 23 years old and is Female; PAIN TECHNIQUE: Real-time duplex ultrasound scan of the bilateral lower extremity veins integrating B-mod e two-dimensional vascular structure, Doppler spectral analysis, color flow Doppler imaging and compr ession. COMPARISON: No relevant prior studies available. FINDINGS: RIGHT DEEP VEINS: Unremarkable. No DVT in the visualized common femoral, femoral, prox imal deep femoral, popliteal, posterior tibial veins. The veins demonstrate normal color flow, are no rmally compressible, with normal phasic flow and/or augmentation response. RIGHT SUPERFICIAL VEINS: Unremarkable. No thrombus in the visualized right great saphenous vein . LEFT DEEP VEINS: Unremarkable. No DVT in the visualized common femoral, femoral, proximal deep femoral, popliteal, posterior tibial veins. The veins demonstrate normal color flow, are normally com pressible, with normal phasic flow and/or augmentation response. LEFT SUPERFICIAL VEINS: Unremarkable. No thrombus in the visualized left great saphenous vein. SOFT TISSUES: No acute findings. No popliteal cyst. IMPRESSION: Normal bilateral lower extremity duplex venous ultrasound. Electronically signed by: Ginette Bills MD 02/04/2024 01:49 AM CDT RP Due to temporary technical issues with the PACS/Fluency reporting system, reports are being signed by the in house radiologist without review as a courtesy to ensure prompt reporting. The interpreting r adiologist is fully responsible for the content of the report.
--- NOTE | 2024-02-05 12:48 | RAD REPORT ---
EXAM DESCRIPTION: US - OB Limited - 02/04/2024 2:21 am CLINICAL HISTORY: The patient is 23 years old and is Female; ABD CRAMPING, TECHNIQUE: Real-time limited ultrasound of the maternal uterus with image documentation. COMPARISON: No relevant prior studies available. FINDINGS: GESTATIONAL AGE: Gestational age is 35 weeks 3 days based on ultrasound composite. POSITION: A single intrauterine gestation is present. presentation is cephalic. HEART RATE: heart rate is 136 bpm. PLACENTA: The placenta is anterior in location. CERVIX: The cervix is closed measuring 4.3 cm. IMPRESSION: Single IUP in cephalic presentation with heart rate of 136 bpm. No obvious acute finding s on this limited exam. Electronically signed by: Ginette Bills MD 02/04/2024 01:48 AM CDT RP Due to temporary technical issues with the PACS/Fluency reporting system, reports are being signed by the in house radiologist without review as a courtesy to ensure prompt reporting. The interpreting r adiologist is fully responsible for the content of the report.
== END 2024-02-04 04:08 | disposition home or self-care (01) ==
LOC: ER 23:40
DX: O12.23 Gestational edema with proteinuria, third trimester (principal); O16.3 Unspecified maternal hypertension, third trimester; Z3A.35 35 weeks gestation of pregnancy
CPT/HCPCS: 85025; 81001; 36415; 83735; 80053; 93970; 76815; J3475; J7040; 96361; 96365; 99284